=== PATIENT | female | born 1990 | race Caucasian/White ===

== ENCOUNTER 2019-11-15 15:34 | Emergency (ER) | payer SELFPAY ==
[~2019-11-15] VITALS: Ht 160 cm; Wt 109.0 kg
--- NOTE | 2019-11-15 16:38 | PHYS DOC ---
Past History Past Medical History: Asthma Past Surgical History: , Tubal ligation, Other Additional Past Surgical Histo: ORAL SURGERY(TOOTH EXTRACTION) YESTERDAY Additional Smoking Information: DAY/PACK Alcohol Use: None Adult General Chief Complaint Chief Complaint: DENTAL PROBLEM HPI HPI 28-year-old female presents with right lower dental pain. The patient had oral surgery yesterday. She had a molar removed. It was a difficult procedure the took an hour. She was discharged with mouthwash and oxycodone 5. She was given 5 of these tablets. She has taken all of them in the last 24 hours. Patient still continues to have significant pain without the medication. She is worried about infection. She has swelling of this part of her mouth on her cheek is puffy. She has had dental infections in the past that were similarly painful. She is allergic to penicillins. She has used clindamycin in the past with success. Review of Systems Review of Systems Constitutional: Denies fever or chills [] Eyes: Denies change in visual acuity, redness, or eye pain [] HENT: Denies nasal congestion or sore throat [] Respiratory: Denies cough or shortness of breath [] Cardiovascular: No additional information not addressed in HPI [] GI: Denies abdominal pain, nausea, vomiting, bloody stools or diarrhea [] : Denies dysuria or hematuria [] Musculoskeletal: Denies back pain or joint pain [] Integument: Denies rash or skin lesions [] Neurologic: Denies headache, focal weakness or sensory changes [] Endocrine: Denies polyuria or polydipsia [] All other systems were reviewed and found to be within normal limits, except as documented in this note. Current Medications Current Medications Current Medications Medications (Trade) Dose Ordered Sig/Sondra Start Time Stop Time Status Last Admin Dose Admin Oxycodone/ Acetaminophen (Percocet 5/325) 1 tab 1X ONCE 11/15/19 16:45 11/15/19 16:46 UNV Allergies Allergies Allergies Coded Allergies Type Severity Reaction Last Updated Verified Penicillins Allergy Unknown 11/15/19 Yes codeine Allergy Unknown 11/15/19 Yes morphine Allergy Unknown 11/15/19 Yes sulfamethoxazole Allergy Unknown 11/15/19 Yes trimethoprim Allergy Unknown 11/15/19 Yes Physical Exam Physical Exam Constitutional: Well developed, well nourished, no acute distress, non-toxic appearance. [] HENT: Normocephalic, atraumatic, bilateral external ears normal, oropharynx moist, no oral exudates, nose normal. Tooth #31 is missing, surrounding erythema and tenderness.[] Eyes: PERRLA, EOMI, conjunctiva normal, no discharge. [] Neck: Normal range of motion, no tenderness, supple, no stridor. [] Cardiovascular:Heart rate regular rhythm, no murmur [] Lungs & Thorax: Bilateral breath sounds clear to auscultation [] Abdomen: Bowel sounds normal, soft, no tenderness, no masses, no pulsatile masses. [] Skin: Warm, dry, no erythema, no rash. [] Back: No tenderness, no CVA tenderness. [] Extremities: No tenderness, no cyanosis, no clubbing, ROM intact, no edema. [] Neurologic: Alert and oriented X 3, normal motor function, normal sensory function, no focal deficits noted. [] Psychologic: Affect normal, judgement normal, mood normal. [] Current Patient Data Vital Signs Vital Signs Date Time Temp Pulse Resp B/P (MAP) Pulse Ox O2 Delivery O2 Flow Rate FiO2 11/15/19 15:40 98.8 97 20 147/87 (107) 96 Room Air EKG EKG [] Radiology/Procedures Radiology/Procedures [] Course & Med Decision Making Course & Med Decision Making Pertinent Labs and Imaging studies reviewed. (See chart for details) The patient appears to have an infected tooth. I will place her on clindamycin and give her an additional 10 Percocet 5/325. She is stable for discharge at this time. [] Dragon Disclaimer Dragon Disclaimer This electronic medical record was generated, in whole or in part, using a voice recognition dictation system. Departure Departure: Impression: Primary Impression: Dental infection Disposition: HOME, SELF-CARE Condition: STABLE Referrals: PCP,NO (PCP) Scripts Clindamycin Hcl (CLINDAMYCIN HCL) 300 Mg Capsule 1 CAP PO TID for dental infection, #21 CAP Prov: LUCAS MOSS DO 11/15/19 Oxycodone HCl/Acetaminophen (Percocet 5-325 mg Tablet) 1 Each Tablet 1 TAB PO PRN QID PRN for PAIN MDD 4 Tablet(s), #14 TAB 0 Refills Prov: LUCAS MOSS DO 11/15/19 LUCAS MOSS DO Nov 15, 2019 16:38
[2019-11-15] MEDS ORDERED: oxyCODONE/APAP 5/325 1 TAB TABLET PO ONE (16:45)
[2019-11-15] MEDS ORDERED: OXYC-325 PO (16:57)
[2019-11-15] MEDS ORDERED: CLIN300C8 PO (16:57)
[2019-11-15 17:00] VITALS: BP 126/87
== END 2019-11-15 17:02 | disposition home or self-care (01) ==
LOC: ER 15:34
DX: K04.7 Periapical abscess without sinus (principal); J45.909 Unspecified asthma, uncomplicated; F17.200 Nicotine dependence, unspecified, uncomplicated; Z88.0 Allergy status to penicillin; Z88.5 Allergy status to narcotic agent; Z88.2 Allergy status to sulfonamides; Z88.1 Allergy status to other antibiotic agents
CPT/HCPCS: 99283

== ENCOUNTER 2019-12-25 09:57 | Emergency (ER) | payer SELFPAY ==
[~2019-12-25] VITALS: Ht 160 cm; Wt 106.6 kg
[~2019-12-25 09:57] MED LIST: CLIN300C8 PO; OXYC-325 PO
[2019-12-25 10:06] VITALS: BP 153/108
--- NOTE | 2019-12-25 10:14 | PHYS DOC ---
Past History Past Medical History: Asthma Past Surgical History: , Tubal ligation, Other Additional Past Surgical Histo: ORAL SURGERY(TOOTH EXTRACTION) YESTERDAY Alcohol Use: None Adult General Chief Complaint Chief Complaint: DENTAL PROBLEM HPI HPI Patient is a 29-year-old female who presents to the ER complaining of dental pain. She states she is scheduled to undergo 6 extractions on Sunday but as of 3 days ago has been having increasing pain and presents today for pain control. The patient states that she has no primary care physician. She states she is having her teeth extracted at a dental clinic by [facility] in [place]. She states that she recently moved from [place] to [place] 2 weeks ago, however the patient was seen in this emergency department on November 15 and prescribed pain medication for reported previous dental extraction and worsening pain and she was also given clindamycin. When I asked the patient about that she states that she was homeless at that time. She states she has had tried ibuprofen and Tylenol without relief. She lists multiple medication allergies including codeine, morphine, naproxen, tramadol but states that she can take oxycodone and hydrocodone. Review of Systems Review of Systems All other systems negative Allergies Allergies Allergies Coded Allergies Type Severity Reaction Last Updated Verified Penicillins Allergy Unknown 11/15/19 Yes codeine Allergy Unknown 11/15/19 Yes morphine Allergy Unknown 11/15/19 Yes naproxen Allergy Unknown 12/25/19 Yes prednisolone Allergy Unknown 12/25/19 Yes sulfamethoxazole Allergy Unknown 11/15/19 Yes tramadol Allergy Unknown 12/25/19 Yes trimethoprim Allergy Unknown 11/15/19 Yes Physical Exam Physical Exam Constitutional: Well developed, well nourished, no acute distress, non-toxic appearance. [] HENT: Normocephalic, atraumatic, bilateral external ears normal, oropharynx moist, no oral exudates, nose normal. Patient has evidence of extensive dental decay on both right and left upper molars and left lower molar. I see no evidence of infection, swelling, erythema. Eyes: PERRLA, EOMI, conjunctiva normal, no discharge. [] Neck: Normal range of motion, no tenderness, supple, no stridor. [] Cardiovascular:Heart rate regular rhythm, no murmur [] Lungs & Thorax: Bilateral breath sounds clear to auscultation [][] Skin: Warm, dry, no erythema, no rash. [] Extremities: No tenderness, no cyanosis, no clubbing, ROM intact, no edema. [] Neurologic: Alert and oriented X 3, normal motor function, normal sensory function, no focal deficits noted. [] Current Patient Data Vital Signs Vital Signs Date Time Temp Pulse Resp B/P (MAP) Pulse Ox O2 Delivery O2 Flow Rate FiO2 12/25/19 10:06 98.0 102 16 153/108 (123) 98 Room Air EKG EKG [] Radiology/Procedures Radiology/Procedures [] Course & Med Decision Making Course & Med Decision Making Pertinent Labs and Imaging studies reviewed. (See chart for details) Patient presenting today requesting pain control specifically hydrocodone or oxycodone. She listed multiple drug allergy medications. She has no primary care physician. She has been seen in the ER as of November 15 and received narcotic pain medication for the same problem. At this time I informed her I was not comfortable providing additional narcotic medications and they would need to come from her dentist or her primary care physician. Patient was offered an injection of Toradol which she declined. She is stable for discharge and there is no emergent medical condition that is identified. Dragon Disclaimer Dragon Disclaimer This electronic medical record was generated, in whole or in part, using a voice recognition dictation system. Departure Departure: Impression: Primary Impression: Pain, dental Disposition: HOME, SELF-CARE Condition: STABLE Referrals: PCP,NO (PCP) Additional Instructions: Please establish care with a primary care physician for ongoing pain management or refer to your dentist. AJ NIEVES DO Dec 25, 2019 10:14
== END 2019-12-25 10:25 | disposition home or self-care (01) ==
LOC: ER 09:57
DX: K02.9 Dental caries, unspecified (principal); K08.89 Other specified disorders of teeth and supporting structures; Z59.0 Homelessness; J45.909 Unspecified asthma, uncomplicated; Z98.818 Other dental procedure status; Z88.0 Allergy status to penicillin; Z88.5 Allergy status to narcotic agent; Z88.8 Allergy status to other drugs, medicaments and biological substances; Z88.2 Allergy status to sulfonamides; Z88.1 Allergy status to other antibiotic agents
CPT/HCPCS: 99281

== ENCOUNTER 2020-03-25 20:37 | Emergency (ER) | payer SELFPAY ==
[~2020-03-25] VITALS: Ht 160 cm; Wt 112.8 kg
[2020-03-25] MEDS ORDERED: ACET500T68 PO (21:08)
[2020-03-25] MEDS ORDERED: IBUP800T19 PO (21:08)
[2020-03-25] MEDS ORDERED: ALBU2.5V8 INH (21:08)
--- NOTE | 2020-03-25 22:00 | PHYS DOC ---
Past History Past Medical History: Asthma Past Surgical History: , Tubal ligation, Other Additional Past Surgical Histo: ORAL SURGERY(TOOTH EXTRACTION) YESTERDAY Alcohol Use: None General Adult EDM: Chief Complaint: SKIN RASH/ABSCESS HPI: HPI: Patient is a 29 year old femal who presents for evaluation of an abscess to her right groin area. It is on the outer aspect near the junction with her thigh. Patient does shave her genital area and this appears to be an infected hair follicle. Patient's partner did try to drain it several times at home. It has been progressing over the past 4 days. Patient states she normally takes clindamycin when she has similar infections in the past. Review of Systems: Review of Systems: Constitutional: Denies fever or chills Eyes: Denies change in visual acuity HENT: Denies nasal congestion or sore throat Respiratory: Denies cough or shortness of breath Cardiovascular: Denies chest pain or edema GI: Denies abdominal pain, nausea, vomiting, bloody stools or diarrhea : Denies dysuria Musculoskeletal: Denies back pain or joint pain Integument: Denies rash, small right side groin abscess Neurologic: Denies headache, focal weakness or sensory changes Endocrine: Denies polyuria or polydipsia Lymphatic: Denies swollen glands Psychiatric: Denies depression or anxiety Heart Score: Risk Factors: Risk Factors: DM, Current or recent (<one month) smoker, HTN, HLP, family history of CAD, obesity. Risk Scores: Score 0 - 3: 2.5% MACE over next 6 weeks - Discharge Home Score 4 - 6: 20.3% MACE over next 6 weeks - Admit for Clinical Observation Score 7 - 10: 72.7% MACE over next 6 weeks - Early Invasive Strategies Allergies: Allergies: Allergies Coded Allergies Type Severity Reaction Last Updated Verified dextromethorphan Allergy Severe 03/25/20 Yes prednisone Allergy Severe 03/25/20 Yes ketorolac Allergy Intermediate 03/25/20 Yes Penicillins Allergy Unknown 11/15/19 Yes amoxicillin Allergy Unknown 03/25/20 Yes codeine Allergy Unknown 11/15/19 Yes morphine Allergy Unknown 11/15/19 Yes naproxen Allergy Unknown 12/25/19 Yes prednisolone Allergy Unknown 12/25/19 Yes sulfamethoxazole Allergy Unknown 11/15/19 Yes tramadol Allergy Unknown 12/25/19 Yes trimethoprim Allergy Unknown 11/15/19 Yes Physical Exam: PE: Constitutional: Well developed, well nourished, no acute distress, non-toxic appearance. [] HENT: Normocephalic, atraumatic, bilateral external ears normal, oropharynx moist, nose normal. [] Eyes: PERRL, EOMI, conjunctiva normal, no discharge. [] Neck: Normal range of motion, no tenderness, supple, no stridor. [] Cardiovascular:Heart rate regular rhythm, no murmur [] Lungs & Thorax: Bilateral breath sounds clear to auscultation [] Abdomen: Bowel sounds normal, soft, no tenderness, no masses, no pulsatile masses. [] Skin: Warm, dry, no erythema, no rash. Small less than 1 cm abscess outer aspect of groin past labia majora, it does not involve the inner groin areas or vagina or rectum [] Back: No tenderness, no CVA tenderness. [] Extremities: No tenderness, no cyanosis, no clubbing, ROM intact, no edema. [] Neurologic: Alert and oriented X 3, normal motor function, normal sensory function, no focal deficits noted. [] Psychologic: Affect normal, judgement normal, mood normal. [] EKG: EKG: [] Radiology/Procedures: Radiology/Procedures: [] Course & Med Decision Making: Course & Med Decision Making Pertinent Labs and Imaging studies reviewed. (See chart for details) [] Dragon Disclaimer: Dragon Disclaimer: This electronic medical record was generated, in whole or in part, using a voice recognition dictation system. Wound was examined with nursing fuel oil truck driver present. There is a small less than 1 cm abscess present. Although it is tender to palpation it is not fluctuant does not require incision and drainage at this time. Prescription for clindamycin given Departure Departure: Impression: Primary Impression: Groin abscess Disposition: HOME/RESIDENCE PRIOR TO ADM Condition: STABLE Referrals: PCP,NO (PCP) Patient Instructions: Abscess, Care After Additional Instructions: Use hot compresses, start antibiotic and finish as directed, apply triple antibiotic to wound daily. Return if worsen. Do not try to squeeze wound at home Scripts Clindamycin Hcl (CLINDAMYCIN HCL) 150 Mg Capsule 1 CAP PO QID for skin abscess, #28 CAP Prov: OSCAR ARIAS DO 03/25/20 Justification of Admission: Justification of Admission: Justification of Admission Dx: N/A OSCAR ARIAS DO Mar 25, 2020 22:00
[2020-03-25] MEDS ORDERED: CLIN150C14 PO (22:10)
[2020-03-25] MEDS ORDERED: HYDROcodone/APAP 5/325MG 1 TAB TABLET PO ONE (22:15)
[2020-03-25 22:20] VITALS: BP 118/73
[2020-03-26] MEDS ORDERED: HYDR-3165 PO (14:31)
== END 2020-03-25 22:30 | disposition home or self-care (01) ==
LOC: ER 20:37
DX: L02.214 Cutaneous abscess of groin (principal); J45.909 Unspecified asthma, uncomplicated; Z88.5 Allergy status to narcotic agent; Z88.1 Allergy status to other antibiotic agents; Z88.2 Allergy status to sulfonamides; Z88.6 Allergy status to analgesic agent; Z88.0 Allergy status to penicillin; Z88.8 Allergy status to other drugs, medicaments and biological substances
CPT/HCPCS: 99283

== ENCOUNTER 2020-03-26 13:41 | Emergency (ER) | payer SELFPAY ==
[~2020-03-26] VITALS: Ht 160 cm; Wt 112.8 kg
[~2020-03-26 13:41] MED LIST changes: +ACET500T68 PO; +ALBU2.5V8 INH; +CLIN150C14 PO; +IBUP800T19 PO
[2020-03-26 14:08] VITALS: BP 118/73
[2020-03-26] MEDS ORDERED: HYDR-3165 PO (14:31)
--- NOTE | 2020-03-26 14:31 | PHYS DOC ---
Past History Past Medical History: Asthma Past Surgical History: , Tubal ligation, Other Additional Past Surgical Histo: ORAL SURGERY(TOOTH EXTRACTION) Smoking: Cigarettes Alcohol Use: None Drug Use: None General Adult EDM: Chief Complaint: ABSCESS HPI: HPI: 29-year-old female presents with report of small abscess to the pubic region 5 days and for which patient was seen yesterday. Reports she was prescribed antibiotics that she has started taking. Patient the abscess has opened and started to drain. Patient reports concerned that it is required. Denies fever or chills. Reports history of recently shaving this area. Review of Systems: Review of Systems: Constitutional: Denies fever or chills Integument: Reports abscess to pubic area Neurologic: Denies headache, focal weakness or sensory changes Complete systems were reviewed and found to be within normal limits, except as documented in this note. Allergies: Allergies: Allergies Coded Allergies Type Severity Reaction Last Updated Verified dextromethorphan Allergy Severe 03/25/20 Yes prednisone Allergy Severe 03/25/20 Yes ketorolac Allergy Intermediate 03/25/20 Yes Penicillins Allergy Unknown 11/15/19 Yes amoxicillin Allergy Unknown 03/25/20 Yes codeine Allergy Unknown 11/15/19 Yes morphine Allergy Unknown 11/15/19 Yes naproxen Allergy Unknown 12/25/19 Yes prednisolone Allergy Unknown 12/25/19 Yes sulfamethoxazole Allergy Unknown 11/15/19 Yes tramadol Allergy Unknown 12/25/19 Yes trimethoprim Allergy Unknown 11/15/19 Yes Physical Exam: PE: Constitutional: Well developed, well nourished, no acute distress, non-toxic appearance HENT: Normocephalic, atraumatic Eyes: Conjunctiva normal, no discharge Neck: Normal range of motion, supple Lungs & Thorax: No respiratory distress, equal chest rise and fall Skin: Warm, dry, small 0.5cm open lesion to right mons pubis without surrounding erythema, indurated and without fluctuance Neurologic: Alert and oriented X 3, no focal deficits noted Psychologic: Affect normal, judgement normal EKG: EKG: [] Radiology/Procedures: Radiology/Procedures: [] Course & Med Decision Making: Course & Med Decision Making Patient presents for re-evaluation of abscess to mons pubis for which patient was initially evaluated yesterday. Reports abscess opened and has been draining. Patient previously started on antibiotics. No surrounding erythema. Likely secondary to shaving. Patient stable for discharge with outpatient follow-up with PCP. Discussed findings and plan with patient, who acknowledges understanding and agreement. Michael Disclaimer: Michael Disclaimer: This electronic medical record was generated, in whole or in part, using a voice recognition dictation system. Departure Departure: Impression: Primary Impression: Encounter for wound re-check Disposition: HOME/RESIDENCE PRIOR TO ADM Condition: STABLE Referrals: PCP,NO (PCP) Patient Instructions: Wound Care, [id number] Additional Instructions: Do not soak your wound. You may shower. Clean wound daily with soap and water. Change dressing 2 times daily. Use over the counter antibiotic ointment with each dressing change. Please continue previously prescribed antibiotics until completion. Scripts Hydrocodone Bit/Acetaminophen (NORCO 5-325 TABLET) 1 Each Tablet 0.5-1 TAB PO Q6HRS PRN for PAIN, #6 TAB Prov: BRIDGETTE JOYCE DO 03/26/20 Justification of Admission: Justification of Admission: Justification of Admission Dx: N/A BRIDGETTE JOYCE DO Mar 26, 2020 14:31
== END 2020-03-26 14:33 | disposition home or self-care (01) ==
LOC: ER 13:41
DX: Z48.01 Encounter for change or removal of surgical wound dressing (principal); L02.214 Cutaneous abscess of groin; J45.909 Unspecified asthma, uncomplicated; F17.210 Nicotine dependence, cigarettes, uncomplicated; Z98.890 Other specified postprocedural states; Z98.51 Tubal ligation status; Z88.8 Allergy status to other drugs, medicaments and biological substances; Z88.1 Allergy status to other antibiotic agents; Z88.5 Allergy status to narcotic agent; Z88.2 Allergy status to sulfonamides; Z88.0 Allergy status to penicillin
CPT/HCPCS: 99283

== ENCOUNTER 2020-06-28 19:37 | Emergency (ER) | payer SELFPAY ==
[~2020-06-28] VITALS: Ht 160 cm; Wt 113.0 kg
[~2020-06-28 19:37] MED LIST changes: +HYDR-3165 PO
[2020-06-28] MEDS ORDERED: SULI200T2 PO (19:56)
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
[2020-06-28] MEDS ORDERED: HYDROcodone/APAP 5/325MG 1 TAB TABLET PO ONE (20:00)
[2020-06-28 20:26] VITALS: BP 118/67
== END 2020-06-28 20:15 | disposition home or self-care (01) ==
LOC: ER 19:37
DX: S60.032A Contusion of left middle finger without damage to nail, initial encounter (principal); J45.909 Unspecified asthma, uncomplicated; F17.210 Nicotine dependence, cigarettes, uncomplicated; Z88.8 Allergy status to other drugs, medicaments and biological substances; Z88.0 Allergy status to penicillin; Z88.1 Allergy status to other antibiotic agents; Z88.5 Allergy status to narcotic agent; Z88.2 Allergy status to sulfonamides; X50.9XXA Other and unspecified overexertion or strenuous movements or postures, initial encounter; Y93.89 Activity, other specified; Y92.89 Other specified places as the place of occurrence of the external cause; Y99.8 Other external cause status
CPT/HCPCS: 29130; 99283

== ENCOUNTER 2020-07-02 20:12 | Emergency (ER) | payer SELFPAY ==
[~2020-07-02] VITALS: Ht 160 cm; Wt 114.3 kg
[~2020-07-02 20:12] MED LIST changes: +SULI200T2 PO
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
--- NOTE | 2020-07-02 20:59 | RAD ---
EXAM: PA, oblique and lateral views of the left hand DATE: 07/02/2020 8:17 PM INDICATION: Reason: hx. lt finger hand re-injury / Spl. Instructions: / History: COMPARISON: No Prior FINDINGS/ IMPRESSION: No evidence of acute fracture or dislocation. Joint spaces are preserved without significant degenerative/proliferative change. No significant soft tissue swelling. Electronically signed by: Michael Fernandez MD (07/02/2020 8:56 PM) ALICIA
[2020-07-02 21:15] VITALS: BP 146/96
[2020-07-02] MEDS ORDERED: HYDROcodon/IBUPROFEN 7.5/200MG 1 TAB TABLET PO ONE (21:30)
== END 2020-07-02 21:20 | disposition home or self-care (01) ==
LOC: ER 20:12
DX: S63.613D Unspecified sprain of left middle finger, subsequent encounter (principal); F41.9 Anxiety disorder, unspecified; G43.909 Migraine, unspecified, not intractable, without status migrainosus; F17.210 Nicotine dependence, cigarettes, uncomplicated; Z88.8 Allergy status to other drugs, medicaments and biological substances; Z88.2 Allergy status to sulfonamides; Z88.5 Allergy status to narcotic agent; Z88.1 Allergy status to other antibiotic agents; X50.9XXD Other and unspecified overexertion or strenuous movements or postures, subsequent encounter
CPT/HCPCS: 29130; 73130; 99283

== ENCOUNTER 2020-07-27 23:33 | Emergency (ER) | payer SELFPAY ==
[~2020-07-27] VITALS: Ht 160 cm; Wt 114.3 kg
== END 2020-07-27 23:54 | disposition left against medical advice (07) ==
LOC: ER 23:33
DX: R10.9 Unspecified abdominal pain (principal); Z53.21 Procedure and treatment not carried out due to patient leaving prior to being seen by health care provider

== ENCOUNTER 2020-08-09 00:55 | Emergency (ER) | payer SELFPAY ==
[~2020-08-09] VITALS: Ht 160 cm; Wt 114.3 kg
--- NOTE | 2020-08-09 01:19 | PHYS DOC ---
Past History Past Medical History: No Pertinent History, Anxiety, Migraines Past Surgical History: , Tubal ligation, Other Additional Past Surgical Histo: ORAL SURGERY(TOOTH EXTRACTION) Smoking: Cigarettes Alcohol Use: Rarely Drug Use: None General Adult EDM: Chief Complaint: ABDOMINAL PAIN HPI: HPI: 29-year-old female presents with right lower quadrant abdominal pain. It is more right lateral than deep right lower. It is intermittent cramping sensation. She was diagnosed by CT 8 days ago with colitis. No other normalities were found. She was placed on Cipro and Flagyl. She finished those antibiotics 3 days ago. She still feels about the same and is concerned. She has been able to fall asleep at home. She also has left upper dental pain. She has had a cracked tooth for some time and is bothering her more than previously. It is an electrical type feeling that is intermittent. She denies fever or chills. Review of Systems: Review of Systems: Constitutional: Denies fever or chills Eyes: Denies change in visual acuity HENT: Dental pain Respiratory: Denies cough or shortness of breath Cardiovascular: Denies chest pain or edema GI: Right lateral abdominal pain. Denies nausea, vomiting, bloody stools or diarrhea : Denies dysuria Musculoskeletal: Denies back pain or joint pain Integument: Denies rash Neurologic: Denies headache, focal weakness or sensory changes Endocrine: Denies polyuria or polydipsia Lymphatic: Denies swollen glands Psychiatric: Denies depression or anxiety Current Medications: Current Meds: Current Medications Medications (Trade) Dose Ordered Sig/Sondra Start Time Stop Time Status Last Admin Dose Admin Sodium Chloride 1,000 ml @ 1,000 mls/hr 1X ONCE 08/09/20 01:30 08/09/20 02:29 Allergies: Allergies: Allergies Coded Allergies Type Severity Reaction Last Updated Verified dextromethorphan Allergy Severe 03/25/20 Yes prednisone Allergy Severe 03/25/20 Yes ketorolac Allergy Intermediate 03/25/20 Yes Penicillins Allergy Unknown 11/15/19 Yes amoxicillin Allergy Unknown 03/25/20 Yes codeine Allergy Unknown 11/15/19 Yes morphine Allergy Unknown 11/15/19 Yes naproxen Allergy Unknown 12/25/19 Yes prednisolone Allergy Unknown 12/25/19 Yes sulfamethoxazole Allergy Unknown 11/15/19 Yes tramadol Allergy Unknown 12/25/19 Yes trimethoprim Allergy Unknown 11/15/19 Yes Physical Exam: PE: Constitutional: Well developed, well nourished, morbidly obese, no acute distress, non-toxic appearance. [] HENT: Normocephalic, atraumatic, bilateral external ears normal, oropharynx moist, no oral exudates, nose normal. [] Eyes: PERRLA, EOMI, conjunctiva normal, no discharge. [] Neck: Normal range of motion, no tenderness, supple, no stridor. [] Cardiovascular: Heart rate regular rhythm, no murmur [] Lungs & Thorax: Bilateral breath sounds clear to auscultation [] Abdomen: Bowel sounds normal, soft, mild right lateral tenderness, no masses, no pulsatile masses. [] Skin: Warm, dry, no erythema, no rash. [] Back: No tenderness, no CVA tenderness. [] Extremities: No tenderness, no cyanosis, no clubbing, ROM intact, no edema. [] Neurologic: Alert and oriented X 3, normal motor function, normal sensory function, no focal deficits noted. [] Psychologic: Affect normal, judgement normal, mood normal. [] EKG: EKG: [] Radiology/Procedures: Radiology/Procedures: [] Impressions: INDICATION: Reason: abdominal pain / Spl. Instructions: / History: COMPARISON: None. IMPRESSION: Abdomen: 2 views obtained. Hepatic shadow appears prominent in size. Air scattered throughout the large and small bowel in a nonspecific but nonobstructive pattern. There is a couple calcifications in the right hemipelvis measuring up to 2 mm. Could be secondary to phleboliths or bowel content but would correlate with symptoms to ensure that this is not secondary to a small ureter stone. Electronically signed by: Tesfaye Tian MD (08/09/2020 2:07 AM) [id number] DICTATED AND SIGNED BY: TESFAYE TIAN MD DATE: 08/09/20 0207 CC: LUCAS MOSS DO; PCP,NO ~ Heart Score: Risk Factors: Risk Factors: DM, Current or recent (<one month) smoker, HTN, HLP, family history of CAD, obesity. Risk Scores: Score 0 - 3: 2.5% MACE over next 6 weeks - Discharge Home Score 4 - 6: 20.3% MACE over next 6 weeks - Admit for Clinical Observation Score 7 - 10: 72.7% MACE over next 6 weeks - Early Invasive Strategies Course & Med Decision Making: Course & Med Decision Making Pertinent Labs and Imaging studies reviewed. (See chart for details) The patient's KUB shows diffuse stool throughout the colon. I suspect that she is a bit constipated and that is leading to her discomfort. Her labs are unremarkable. I do not see anything that would warrant admission or antibiotics. At this point her colitis is likely either treated or viral. She is stable for discharge at this time. [] Dragon Disclaimer: Dragon Disclaimer: This electronic medical record was generated, in whole or in part, using a voice recognition dictation system. Departure Departure: Impression: Primary Impression: Abdominal pain Qualified Codes: R10.31 - Right lower quadrant pain Additional Impression: Constipation Qualified Codes: K59.00 - Constipation, unspecified Disposition: 01 DC HOME SELF CARE/HOMELESS Condition: STABLE Referrals: PCP,NO (PCP) Patient Instructions: Constipation, Adult, [id number] Additional Instructions: You should go to the local pharmacy and last picker a bottle of magnesium citrate. You should drink the entire bottle and have several bowel movements. This will likely help you to to feel better. LUCAS MOSS DO Aug 09, 2020 01:19
[2020-08-09] MEDS ORDERED: IV NORMAL SALINE 1,000ML 1,000 ML IV ONE (01:30)
[2020-08-09 01:57] LABS: BASO # 0.1 x10^3/uL (0.0-0.2); BASO % 1 % (0-3); EOS # 0.2 x10^3/uL (0.0-0.7); EOS % 2 % (0-3); HEMATOCRIT 40.8 % (36.0-47.0); HEMOGLOBIN 13.8 g/dL (12.0-15.5); LYMPH # 3.1 x10^3/uL (1.0-4.8); LYMPH % 40 % (24-48); MEAN CORPUSCULAR HEMOGLOBIN 30 pg (25-35); MEAN CORPUSCULAR HGB CONC 34 g/dL (31-37); MEAN CORPUSCULAR VOLUME 88 fL (79-100); MONO # 0.4 x10^3/uL (0.0-1.1); MONO % 5 % (0-9); NEUT % 52 % (31-73); PLATELET COUNT 306 x10^3/uL (140-400); RED BLOOD COUNT 4.64 x10^6/uL (3.50-5.40); RED CELL DISTRIBUTION WIDTH 14.6 % (11.5-14.5); WHITE BLOOD COUNT 7.7 x10^3/uL (4.0-11.0)
[2020-08-09 02:03] LABS: BACTERIA,URINE FEW /HPF (0-FEW); BILIRUBIN,URINE NEG (NEG); CLARITY,URINE CLEAR; COLOR,URINE YELLOW; GLUCOSE,URINE NEG (NEG); NITRITE,URINE NEG (NEG); RBC,URINE OCC /HPF (0-2); SQUAMOUS EPITHELIAL CELL,UR MOD /LPF; UROBILINOGEN,URINE 0.2 mg/dL (0.2 mg/dL); WBC,URINE OCC /HPF (0-4)
[2020-08-09 02:05] LABS: CALCIUM 8.8 mg/dL (8.5-10.1); CREATININE 1.1 mg/dL (0.6-1.0); GFR 59.6; POTASSIUM 3.6 mmol/L (3.5-5.1)
[2020-08-09 02:07] LABS: BARBITURATES NEG (NEG); BENZODIAZEPINES NEG (NEG); CANNABINOIDS NEG (NEG); COCAINE NEG (NEG); METHADONE NEG (NEG); OPIATES NEG (NEG); PHENCYCLIDINE NEG (NEG)
[2020-08-09 02:08] LABS: AMPHETAMINE/METHAMPHETAMINE NEG (NEG)
--- NOTE | 2020-08-09 02:10 | RAD ---
INDICATION: Reason: abdominal pain / Spl. Instructions: / History: COMPARISON: None. IMPRESSION: Abdomen: 2 views obtained. Hepatic shadow appears prominent in size. Air scattered throughout the large and small bowel in a nonspecific but nonobstructive pattern. There is a couple calcifications in the right hemipelvis measuring up to 2 mm. Could be secondary to phleboliths or bowel content but would correlate with symptoms to ensure that this is not secondary to a small ureter stone. Electronically signed by: Jovani Tian MD (08/09/2020 2:07 AM) [id number]
[2020-08-09 02:11] LABS: ALBUMIN 3.4 g/dL (3.4-5.0); ALBUMIN/GLOBULIN RATIO 0.8 (1.0-1.7); TOTAL BILIRUBIN 0.3 mg/dL (0.2-1.0); TOTAL PROTEIN 7.6 g/dL (6.4-8.2)
[2020-08-09 02:21] VITALS: BP 115/76
[2020-08-09] MEDS ORDERED: CLIN300C8 PO (02:21)
[2020-08-09] MEDS ORDERED: HYDROcodone/APAP 7.5/325MG 1 TAB TABLET PO ONE (02:30)
[2020-08-09] MEDS ORDERED: HYDROcodone/APAP 5/325MG 1 TAB TABLET ONE (02:31)
[2020-08-09] MEDS ORDERED: HYDROmorphone PF 1 MG/ML DISP.SYRIN IVP ONE (03:00)
[2020-08-09] MEDS ORDERED: CLINDAMYCIN HCL 150 MG CAPSULE PO ONE (03:00)
== END 2020-08-09 02:45 | disposition home or self-care (01) ==
LOC: ER 00:55
DX: K59.00 Constipation, unspecified (principal); R10.31 Right lower quadrant pain; K08.89 Other specified disorders of teeth and supporting structures; G43.909 Migraine, unspecified, not intractable, without status migrainosus; F41.9 Anxiety disorder, unspecified; F17.210 Nicotine dependence, cigarettes, uncomplicated; Z98.890 Other specified postprocedural states; Z98.51 Tubal ligation status; Z88.8 Allergy status to other drugs, medicaments and biological substances; Z88.0 Allergy status to penicillin; Z88.1 Allergy status to other antibiotic agents; Z88.5 Allergy status to narcotic agent; Z88.2 Allergy status to sulfonamides; Z88.6 Allergy status to analgesic agent
CPT/HCPCS: 36415; 74018; 80053; 80307; 81001; 81025; 85025; 96360; 99284; J7030

== ENCOUNTER 2020-08-15 03:04 | Emergency (ER) | payer SELFPAY ==
[~2020-08-15] VITALS: Ht 160 cm; Wt 114.3 kg
[2020-08-15 03:21] VITALS: BP 156/95
--- NOTE | 2020-08-15 03:21 | PHYS DOC ---
Past History Past Medical History: Anxiety, Asthma, Migraines, Other Additional Past Medical Histor: PTSD Past Surgical History: , Tubal ligation, Other Additional Past Surgical Histo: ORAL SURGERY(TOOTH EXTRACTION) Smoking: Cigarettes Alcohol Use: None Drug Use: None General Adult EDM: Chief Complaint: DENTAL PROBLEM HPI: HPI: "... I got a dental apt. in Sunday.. but I still hurting.. "..." I was here on the .. for dental pain..(. in area of tooth 12) Patient is a 29 year old female who presents with above hx and complaints severe dental pain in the area of tooth #12. Patient has a scheduled appointment on Sunday at [facility] for extraction of fractured infected tooth. Patient currently on clindamycin for tooth and facial abscess . Patient has no trismus. Does have some adenopathy at angle jaw left. No history immunosuppression. No recent travel outside the [place] area. No specific ill contacts. Was seen here earlier on 08/09 for abdomen pain as well as dental pain. Review of Systems: Review of Systems: Constitutional: Denies fever or chills Eyes: Denies change in visual acuity HENT: Complains of dental abscess and pain area of tooth 12 Respiratory: Denies cough or shortness of breath Cardiovascular: Denies chest pain or edema GI: Denies abdominal pain, nausea, vomiting, bloody stools or diarrhea : Denies dysuria Musculoskeletal: Denies back pain or joint pain Integument: Denies rash Neurologic: Denies headache, focal weakness or sensory changes Endocrine: Denies polyuria or polydipsia Lymphatic: Denies swollen glands Psychiatric: Denies depression or anxiety Family History: Family History: Noncontributory to presentation Current Medications: Current Meds: See nursing for home meds Allergies: Allergies: Allergies Coded Allergies Type Severity Reaction Last Updated Verified dextromethorphan Allergy Severe 03/25/20 Yes prednisone Allergy Severe 03/25/20 Yes ketorolac Allergy Intermediate 03/25/20 Yes Penicillins Allergy Unknown 11/15/19 Yes amoxicillin Allergy Unknown 03/25/20 Yes codeine Allergy Unknown 11/15/19 Yes morphine Allergy Unknown 11/15/19 Yes naproxen Allergy Unknown 12/25/19 Yes prednisolone Allergy Unknown 12/25/19 Yes sulfamethoxazole Allergy Unknown 11/15/19 Yes tramadol Allergy Unknown 12/25/19 Yes trimethoprim Allergy Unknown 11/15/19 Yes Physical Exam: PE: Constitutional: in acute distress, non-toxic appearance. [] HENT: Normocephalic, atraumatic, bilateral external ears normal, oropharynx moist, no oral exudates, nose normal. Multiple areas of decay obvious swelling and fractured tooth in area of 12. Has inflamed gum. No pointing abscess appreciated. No trismus Eyes: PERRLA, EOMI, conjunctiva normal, no discharge. [] Neck: Normal range of motion, no tenderness, supple, no stridor. More than 17 inches circumference Cardiovascular:Heart rate regular rhythm, no murmur [] Lungs & Thorax: Bilateral breath sounds equal apex with some basilar crackles on auscultation [] Abdomen: Bowel sounds normal, soft, no tenderness, no masses, no pulsatile masses. Morbidly obese. Abdomen surgical scar. Skin: Warm, dry, no erythema, no rash. [] Back: No tenderness, no CVA tenderness. [] Extremities: No tenderness, no cyanosis, no clubbing, ROM intact, bilateral ankle edema. [] Neurologic: Alert and oriented X 3, moves all extremities on request, has distal sensory,, no focal deficits noted. [] Psychologic: Affect anxious, judgement normal, mood normal. [] EKG: EKG: [] Radiology/Procedures: Radiology/Procedures: [] Heart Score: Risk Factors: Risk Factors: DM, Current or recent (<one month) smoker, HTN, HLP, family history of CAD, obesity. Risk Scores: Score 0 - 3: 2.5% MACE over next 6 weeks - Discharge Home Score 4 - 6: 20.3% MACE over next 6 weeks - Admit for Clinical Observation Score 7 - 10: 72.7% MACE over next 6 weeks - Early Invasive Strategies Course & Med Decision Making: Course & Med Decision Making Pertinent Labs and Imaging studies reviewed. (See chart for details) Patient continue clindamycin previously directed. Must follow-up with dentist as planned on Sunday. Take Tylenol and ibuprofen for pain. Marked pain may take Percocet up to 4 times a day. Impression: 1. Dental pain 2. Dental abscess suspect an area tooth 12 [] Dragon Disclaimer: Dragon Disclaimer: This electronic medical record was generated, in whole or in part, using a voice recognition dictation system. Departure Departure: Disposition: 01 DC HOME SELF CARE/HOMELESS Condition: STABLE Referrals: PCP,NO (PCP) Scripts Oxycodone HCl/Acetaminophen (Percocet 5-325 mg Tablet) 1 Each Tablet 1 TAB PO PRN QID PRN for PAIN MDD 4 Tablet(s) for 7 Days, #30 TAB 0 Refills Prov: DUANE NICOLE MD 08/15/20 Dragon Disclaimer This chart was dictated in whole or in part using Voice Recognition software in a busy, high-work load, and often noisy Emergency Department environment. It ma y contain unintended and wholly unrecognized errors or omissions. DUANE NICOLE MD Aug 15, 2020 03:21
[2020-08-15] MEDS ORDERED: oxyCODONE/APAP 5/325 1 TAB TABLET ONE (03:50)
[2020-08-15] MEDS ORDERED: OXYC-325 PO (03:52)
[2020-08-15] MEDS ORDERED: oxyCODONE/APAP 5/325 1 TAB TABLET PO ONE (04:00)
== END 2020-08-15 04:00 | disposition home or self-care (01) ==
LOC: ER 03:04
DX: S02.5XXA Fracture of tooth (traumatic), initial encounter for closed fracture (principal); K04.7 Periapical abscess without sinus; J45.909 Unspecified asthma, uncomplicated; G43.909 Migraine, unspecified, not intractable, without status migrainosus; F43.10 Post-traumatic stress disorder, unspecified; F41.9 Anxiety disorder, unspecified; F17.210 Nicotine dependence, cigarettes, uncomplicated; Z88.8 Allergy status to other drugs, medicaments and biological substances; Z88.0 Allergy status to penicillin; Z88.1 Allergy status to other antibiotic agents; Z88.5 Allergy status to narcotic agent; Z88.2 Allergy status to sulfonamides; X58.XXXA Exposure to other specified factors, initial encounter; Y93.89 Activity, other specified; Y92.89 Other specified places as the place of occurrence of the external cause; Y99.8 Other external cause status
CPT/HCPCS: 99283

== ENCOUNTER 2020-09-18 23:57 | Emergency (ER) | payer SELFPAY ==
[~2020-09-18] VITALS: Ht 160 cm; Wt 111.8 kg
[2020-09-19 00:16] VITALS: BP 151/94
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
[2020-09-19] MEDS ORDERED: FLUC100T7 PO (01:03)
[2020-09-19] MEDS ORDERED: CLIN300C8 PO (01:03)
[2020-09-19] MEDS ORDERED: HYDR-1179 PO (01:03)
[2020-09-19] MEDS ORDERED: oxyCODONE/APAP 5/325 1 TAB TABLET PO ONE (01:30)
[2020-09-19] MEDS ORDERED: CLINDAMYCIN HCL 150 MG CAPSULE PO ONE (01:30)
== END 2020-09-19 01:20 | disposition home or self-care (01) ==
LOC: ER 23:57
DX: N76.4 Abscess of vulva (principal); F41.9 Anxiety disorder, unspecified; G43.909 Migraine, unspecified, not intractable, without status migrainosus; F17.210 Nicotine dependence, cigarettes, uncomplicated; F43.10 Post-traumatic stress disorder, unspecified; Z98.890 Other specified postprocedural states; Z98.51 Tubal ligation status; Z88.8 Allergy status to other drugs, medicaments and biological substances; Z88.5 Allergy status to narcotic agent; Z88.1 Allergy status to other antibiotic agents; Z88.2 Allergy status to sulfonamides; Z88.6 Allergy status to analgesic agent
CPT/HCPCS: 56405; 99284

== ENCOUNTER 2020-09-22 14:50 | Emergency (ER) | payer SELFPAY ==
[~2020-09-22] VITALS: Ht 160 cm; Wt 111.8 kg
[~2020-09-22 14:50] MED LIST changes: +FLUC100T7 PO; +HYDR-1179 PO
[2020-09-22 14:53] VITALS: BP 151/94
[2020-09-22] MEDS ORDERED: HYDROcodone/APAP 5/325MG 1 TAB TABLET PO ONE (15:15)
[2020-09-22] MEDS ORDERED: HYDR-3165 PO (15:23)
--- NOTE | 2020-09-22 15:23 | PHYS DOC ---
Past History Past Medical History: Anxiety, Asthma, Migraines, Other Additional Past Medical Histor: PTSD Past Surgical History: , Tubal ligation, Other Additional Past Surgical Histo: ORAL SURGERY(TOOTH EXTRACTION) Smoking: Cigarettes Alcohol Use: None Drug Use: None Adult General Chief Complaint Chief Complaint: ABSCESS HPI HPI Patient is a 29-year-old female patient presented to the ED today complaining of moderate pain to the right labia after having an abscess drained 3 days ago. Patient states she was sent home with Vicoprofen and clindamycin. She states the Vicoprofen is not helping with her pain and it also limits her chances of taking ibuprofen. Patient denies any fever or trismus. She states she has trace amount of drainage from the area. States her pain to the right labia is on friction or touching the region. Describes the pain as throbbing and intermittent. Review of Systems Review of Systems Constitutional: Denies fever or chills [] Musculoskeletal: Denies back pain or joint pain [] Integument: Reports right labia pain Neurologic: Denies headache, focal weakness or sensory changes [] All other systems were reviewed and found to be within normal limits, except as documented in this note. Current Medications Current Medications Current Medications Medications (Trade) Dose Ordered Sig/Sondra Start Time Stop Time Status Last Admin Dose Admin Acetaminophen/ Hydrocodone Bitart (Lortab 5/325) 1 tab 1X ONCE 09/22/20 15:15 09/22/20 15:16 UNV Allergies Allergies Allergies Coded Allergies Type Severity Reaction Last Updated Verified dextromethorphan Allergy Severe 03/25/20 Yes prednisone Allergy Severe 03/25/20 Yes ketorolac Allergy Intermediate 03/25/20 Yes Penicillins Allergy Unknown 11/15/19 Yes amoxicillin Allergy Unknown 03/25/20 Yes codeine Allergy Unknown 11/15/19 Yes morphine Allergy Unknown 11/15/19 Yes naproxen Allergy Unknown 12/25/19 Yes prednisolone Allergy Unknown 12/25/19 Yes sulfamethoxazole Allergy Unknown 11/15/19 Yes tramadol Allergy Unknown 12/25/19 Yes trimethoprim Allergy Unknown 11/15/19 Yes Physical Exam Physical Exam Constitutional: Well developed, well nourished, no acute distress, non-toxic appearance. [] Skin: Warm, dry, right labia majora with an incision approximately 0.5 cm, no drainage, no erythema. Back: No tenderness, no CVA tenderness. [] Extremities: No tenderness, no cyanosis, no clubbing, ROM intact, no edema. [] Neurologic: Alert and oriented X 3, normal motor function, normal sensory function, no focal deficits noted. [] Psychologic: Affect normal, judgement normal, mood normal. [] Current Patient Data Vital Signs Vital Signs Date Time Temp Pulse Resp B/P (MAP) Pulse Ox O2 Delivery O2 Flow Rate FiO2 09/22/20 14:53 97.9 112 16 151/94 (113) 97 Room Air EKG EKG [] Radiology/Procedures Radiology/Procedures [] Heart Score Risk Factors: Risk Factors: DM, Current or recent (<one month) smoker, HTN, HLP, family history of CAD, obesity. Risk Scores: Risk Factors: DM, Current or recent (<one month) smoker, HTN, HLP, family history of CAD, obesity. Course & Med Decision Making Course & Med Decision Making Pertinent Labs and Imaging studies reviewed. (See chart for details) This 59-year-old female patient presented to the ED today complaining of right labia pain from an abscess that was drained 3 days ago. Patient is on clindamycin. Area appears to be healing well. Continue to encourage warm compresses and keeping the area clean and dry and completing her antibiotics. 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 Dragon Disclaimer Dragon Disclaimer This electronic medical record was generated, in whole or in part, using a voice recognition dictation system. Departure Departure: Impression: Primary Impression: Wound check, abscess Disposition: 01 DC HOME SELF CARE/HOMELESS Condition: STABLE Referrals: PCP,NO (PCP) Follow up with Dr. Ifeanyi Castro [address] [facility] [facility] [address], [place] [address] Patient Instructions: Wound Check Additional Instructions: Your abscess appears to be healing well. You can wash the area once or twice with warm water, regular soap. Apply warm compresses to the area twice a day. Complete the prescribed antibiotics he got from the emergency room 3 days ago. Follow up with Dr. Ifeanyi Castro [address], [place] [address] Scripts Ibuprofen (IBUPROFEN) 800 Mg Tablet 1 TAB PO TID, #30 TAB Prov: MUTUNGA,JAE AUTOMOTIVE ELECTRICIAN 09/22/20 Hydrocodone Bit/Acetaminophen (NORCO 5-325 TABLET) 1 Each Tablet 1 TAB PO Q6HRS, #14 TAB Prov: JAE RIVAS APRN 09/22/20 JAE RIVAS APRN Sep 22, 2020 15:23
[2020-09-22] MEDS ORDERED: IBUP800T19 PO ×2 (15:30→15:33)
== END 2020-09-22 15:39 | disposition home or self-care (01) ==
LOC: ER 14:50
DX: Z48.01 Encounter for change or removal of surgical wound dressing (principal); N76.4 Abscess of vulva; J45.909 Unspecified asthma, uncomplicated; G43.909 Migraine, unspecified, not intractable, without status migrainosus; F43.10 Post-traumatic stress disorder, unspecified; F17.210 Nicotine dependence, cigarettes, uncomplicated; Z88.8 Allergy status to other drugs, medicaments and biological substances; Z88.0 Allergy status to penicillin; Z88.1 Allergy status to other antibiotic agents; Z88.2 Allergy status to sulfonamides
CPT/HCPCS: 99283

== ENCOUNTER 2020-10-25 19:03 | Emergency (ER) | payer OTHER ==
[~2020-10-25] VITALS: Ht 160 cm; Wt 111.8 kg
[~2020-10-25 19:03] MED LIST changes: -CLIN150C14 PO; +CLIN150C15 PO; -CLIN300C8 PO; +CLIN300C9 PO
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
[2020-10-25] MEDS ORDERED: oxyCODONE/APAP 5/325 1 TAB TABLET PO ONE (19:30)
[2020-10-25] MEDS ORDERED: CYCLOBENZAPRINE 10 MG TABLET. PO ONE ×2 (19:30→19:45)
[2020-10-25] MEDS ORDERED: OXYC-325 PO ×2 (19:36→21:17)
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
[2020-10-25] MEDS ORDERED: METH-38 PO (20:07)
[2020-10-25 20:40] VITALS: BP 126/79
== END 2020-10-25 20:40 | disposition home or self-care (01) ==
LOC: ER 19:03
DX: S13.8XXA Sprain of joints and ligaments of other parts of neck, initial encounter (principal); S20.219A Contusion of unspecified front wall of thorax, initial encounter; M54.5 Low back pain; F41.9 Anxiety disorder, unspecified; J45.909 Unspecified asthma, uncomplicated; G43.909 Migraine, unspecified, not intractable, without status migrainosus; F17.210 Nicotine dependence, cigarettes, uncomplicated; Z98.51 Tubal ligation status; Z98.890 Other specified postprocedural states; Z88.0 Allergy status to penicillin; Z88.1 Allergy status to other antibiotic agents; Z88.5 Allergy status to narcotic agent; Z88.8 Allergy status to other drugs, medicaments and biological substances; V98.8XXA Other specified transport accidents, initial encounter; Y93.89 Activity, other specified; Y92.413 State road as the place of occurrence of the external cause; Y99.8 Other external cause status
CPT/HCPCS: 71046; 72125; 99284

== ENCOUNTER 2020-11-12 23:08 | Emergency (ER) | payer OTHER ==
[~2020-11-12] VITALS: Ht 160 cm; Wt 113.6 kg
[~2020-11-12 23:08] MED LIST changes: +METH-38 PO
[2020-11-12 23:21] VITALS: BP 137/110
[2020-11-12] MEDS ORDERED: oxyCODONE/APAP 5/325 1 TAB TABLET PO ONE (23:30)
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
[2020-11-13] MEDS ORDERED: OXYC-325 PO (21:16)
== END 2020-11-12 23:45 | disposition home or self-care (01) ==
LOC: ER 23:08
DX: M62.838 Other muscle spasm (principal); J45.909 Unspecified asthma, uncomplicated; G43.909 Migraine, unspecified, not intractable, without status migrainosus; F43.10 Post-traumatic stress disorder, unspecified; F17.210 Nicotine dependence, cigarettes, uncomplicated; Z98.51 Tubal ligation status; Z98.890 Other specified postprocedural states; Z88.8 Allergy status to other drugs, medicaments and biological substances; Z88.2 Allergy status to sulfonamides; Z88.0 Allergy status to penicillin; Z88.1 Allergy status to other antibiotic agents
CPT/HCPCS: 99283

== ENCOUNTER 2020-11-13 19:28 | Emergency (ER) | payer OTHER ==
[~2020-11-13] VITALS: Ht 160 cm; Wt 113.6 kg
[2020-11-13 19:41] VITALS: BP 162/98
[2020-11-13] MEDS ORDERED: oxyCODONE/APAP 5/325 1 TAB TABLET PO ONE (21:00)
[2020-11-13] MEDS ORDERED: LIDOCAINE (700MG/PATCH) PATCH. TD SCH (21:15)
[2020-11-13] MEDS ORDERED: OXYC-325 PO (21:16)
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
[2020-11-13] MEDS ORDERED: LIDOCAINE (700MG/PATCH) PATCH. TD ONE (21:30)
== END 2020-11-13 21:20 | disposition home or self-care (01) ==
LOC: ER 19:28
DX: M54.5 Low back pain (principal); M62.830 Muscle spasm of back; F41.9 Anxiety disorder, unspecified; J45.909 Unspecified asthma, uncomplicated; G43.909 Migraine, unspecified, not intractable, without status migrainosus; F43.10 Post-traumatic stress disorder, unspecified; F17.210 Nicotine dependence, cigarettes, uncomplicated; Z98.51 Tubal ligation status; Z98.890 Other specified postprocedural states; Z88.8 Allergy status to other drugs, medicaments and biological substances; Z88.5 Allergy status to narcotic agent; Z88.0 Allergy status to penicillin; Z88.1 Allergy status to other antibiotic agents; Z88.2 Allergy status to sulfonamides
CPT/HCPCS: 99283

== ENCOUNTER 2020-11-22 21:48 | Emergency (ER) | payer SELFPAY ==
[~2020-11-22] VITALS: Ht 160 cm; Wt 113.6 kg
--- NOTE | 2020-11-22 23:49 | PHYS DOC ---
Past History Past Medical History: Anxiety, Asthma, Migraines, Other Additional Past Medical Histor: PTSD Past Surgical History: , Tubal ligation, Other Additional Past Surgical Histo: ORAL SURGERY(TOOTH EXTRACTION) Smoking: Cigarettes Alcohol Use: None Drug Use: None General Adult EDM: Chief Complaint: FACE PROBLEM HPI: HPI: ".. They said if I got the molar pulled on the right my TMJ would go away.. it is worse tonight..." Patient is a 29 year old female who presents with above hx and complaints of TMJ on the right. Patient has had this problem before. Has followed with dentistry who extracted the molar on the right. Patient presents tonight with the same complaints as previous which she followed with her dentist with. No history of trauma. No history of ill contacts. No history changes in meds. Patient does not follow with primary care. Review of Systems: Review of Systems: Constitutional: Denies fever or chills Eyes: Denies change in visual acuity HENT: complains of TMJ Respiratory: Denies cough or shortness of breath Cardiovascular: Denies chest pain or edema GI: Denies abdominal pain, nausea, vomiting, bloody stools or diarrhea : Denies dysuria Musculoskeletal: Denies back pain or joint pain Integument: Denies rash Neurologic: Denies headache, focal weakness or sensory changes Endocrine: Denies polyuria or polydipsia Lymphatic: Denies swollen glands Psychiatric: Denies depression or anxiety Family History: Family History: Noncontributory to presentation Current Medications: Current Meds: See nursing for home meds Allergies: Allergies: Allergies Coded Allergies Type Severity Reaction Last Updated Verified dextromethorphan Allergy Severe 03/25/20 Yes prednisone Allergy Severe 03/25/20 Yes ketorolac Allergy Intermediate 03/25/20 Yes Penicillins Allergy Unknown 11/15/19 Yes amoxicillin Allergy Unknown 03/25/20 Yes codeine Allergy Unknown 11/15/19 Yes morphine Allergy Unknown 11/15/19 Yes naproxen Allergy Unknown 12/25/19 Yes prednisolone Allergy Unknown 12/25/19 Yes sulfamethoxazole Allergy Unknown 11/15/19 Yes tramadol Allergy Unknown 12/25/19 Yes trimethoprim Allergy Unknown 11/15/19 Yes Physical Exam: PE: Constitutional: moderate acute distress, non-toxic appearance. [] HENT: Normocephalic, atraumatic, bilateral external ears normal, oropharynx moist, no oral exudates, nose normal. Crepitation with opening and closing of mouth. Patient localizes pain to right TMJ. Eyes: PERRLA, EOMI, conjunctiva normal, no discharge. [] Neck: Normal range of motion, no tenderness, supple, no stridor. More than 17 inches circumference Cardiovascular:Heart rate regular rhythm, no murmur [] Lungs & Thorax: Bilateral breath sounds equal apex on auscultation [] Abdomen: Bowel sounds normal, soft, no tenderness, no masses, no pulsatile masses. Obese.. Surgery scars. Skin: Warm, dry, no erythema, no rash. [] Back: No tenderness, no CVA tenderness. [] Extremities: No tenderness, no cyanosis, no clubbing, ROM intact, no edema. [] Neurologic: Alert and oriented X 3, normal motor function, normal sensory functi on, no focal deficits noted. [] Psychologic: Affect anxious, judgement normal, mood normal. [] EKG: EKG: [] Radiology/Procedures: Radiology/Procedures: [] Heart Score: Risk Factors: Risk Factors: DM, Current or recent (<one month) smoker, HTN, HLP, family histo ry of CAD, obesity. Risk Scores: Score 0 - 3: 2.5% MACE over next 6 weeks - Discharge Home Score 4 - 6: 20.3% MACE over next 6 weeks - Admit for Clinical Observation Score 7 - 10: 72.7% MACE over next 6 weeks - Early Invasive Strategies Course & Med Decision Making: Course & Med Decision Making Pertinent Labs and Imaging studies reviewed. (See chart for details) Patient Tylenol and ibuprofen for pain. For marked pain may take Vicoprofen up to 4 times a day. Must follow-up with ENT/oral surgery. May need injection or surgical repair of right TMJ. Possible candidate for oral insert. Impression : 1. TMJ [] Dragon Disclaimer: Michael Disclaimer: This electronic medical record was generated, in whole or in part, using a voice recognition dictation system. Departure Departure: Referrals: PCP,NO (PCP) Scripts Hydrocodone/Ibuprofen (HYDROCODONE-IBUPROFEN 7.5-200 ) 1 Each Tablet 1 TAB PO PRN Q6HRS PRN for PAIN, #30 TAB 0 Refills Prov: DUANE NICOLE MD 11/23/20 Michael Disclaimer This chart was dictated in whole or in part using Voice Recognition software in a busy, high-work load, and often noisy Emergency Department environment. It may contain unintended and wholly unrecognized errors or omissions. DUANE NICOLE MD Nov 22, 2020 23:49
[2020-11-23] MEDS ORDERED: HYDR-1179 PO (00:48)
[2020-11-23] MEDS ORDERED: HYDROcodone/APAP 5/325MG 1 TAB TABLET PO ONE (01:00)
[2020-11-23 01:06] VITALS: BP 152/92
== END 2020-11-23 01:06 | disposition home or self-care (01) ==
LOC: ER 21:48
DX: M26.621 Arthralgia of right temporomandibular joint (principal); J45.909 Unspecified asthma, uncomplicated; G43.909 Migraine, unspecified, not intractable, without status migrainosus; F41.9 Anxiety disorder, unspecified; F43.10 Post-traumatic stress disorder, unspecified; F17.210 Nicotine dependence, cigarettes, uncomplicated; Z88.1 Allergy status to other antibiotic agents; Z88.2 Allergy status to sulfonamides; Z88.8 Allergy status to other drugs, medicaments and biological substances
CPT/HCPCS: 99283

== ENCOUNTER 2020-11-26 21:31 | Emergency (ER) | payer SELFPAY ==
[~2020-11-26] VITALS: Ht 160 cm; Wt 119.7 kg
--- NOTE | 2020-11-26 21:36 | PHYS DOC ---
Past History Past Medical History: Anxiety, Asthma, Migraines, Other Additional Past Medical Histor: PTSD Past Surgical History: , Tubal ligation, Other Additional Past Surgical Histo: ORAL SURGERY(TOOTH EXTRACTION) Smoking: Cigarettes Alcohol Use: None Drug Use: None General Adult HPI: HPI: ".. The right side my jaw is still hurting.. the pain meds are not helping..." Patient is a 29 year old female who presents with above hx and complaints of right TMJ pain and neuralgia. Has not taking the Vicoprofen. Has not made a dental or oral surgery follow-up. Has not kept follow-up with primary care. Pt. follows with Dr. Lopez. Has not taken pain meds. Presents today with increased pain over right TMJ. Patient convinced it does not have a dental component, so has not made a dental follow-up. Patient did have mild elevation in temperature tonight on presentation. There is more swelling right TMJ area. Has had previous problems with TMJ on right. Patient did have a molar pulled on the right which was to help her chronic TMJ and trigeminal neuralgia. No history immunosuppression. No history of travel. No history of trauma. Review of Systems: Review of Systems: Constitutional: Denies fever or chills Eyes: Denies change in visual acuity HENT: Complains of right TMJ and trigeminal pain Respiratory: Denies cough or shortness of breath Cardiovascular: Denies chest pain or edema GI: Denies abdominal pain, nausea, vomiting, bloody stools or diarrhea : Denies dysuria Musculoskeletal: Denies back pain or joint pain Integument: Denies rash Neurologic: Denies headache, focal weakness or sensory changes Endocrine: Denies polyuria or polydipsia Lymphatic: Denies swollen glands Psychiatric: Denies depression or anxiety Family History: Family History: Noncontributory to presentation Current Medications: Current Meds: See nursing for home meds Allergies: Allergies: Allergies Coded Allergies Type Severity Reaction Last Updated Verified dextromethorphan Allergy Severe 03/25/20 Yes prednisone Allergy Severe 03/25/20 Yes ketorolac Allergy Intermediate 03/25/20 Yes Penicillins Allergy Unknown 11/15/19 Yes amoxicillin Allergy Unknown 03/25/20 Yes codeine Allergy Unknown 11/15/19 Yes morphine Allergy Unknown 11/15/19 Yes naproxen Allergy Unknown 12/25/19 Yes prednisolone Allergy Unknown 12/25/19 Yes sulfamethoxazole Allergy Unknown 11/15/19 Yes tramadol Allergy Unknown 12/25/19 Yes trimethoprim Allergy Unknown 11/15/19 Yes Physical Exam: PE: Constitutional: in acute distress, non-toxic appearance. [] HENT: Normocephalic, atraumatic, bilateral external ears normal, oropharynx moist, no oral exudates, nose normal. Right TMJ area is swollen. Right TMJ pain and crepitation. Eyes: PERRLA, EOMI, conjunctiva normal, no discharge. [] Neck: Normal range of motion, no tenderness, supple, no stridor. [] Cardiovascular:Heart rate regular rhythm, no murmur [] Lungs & Thorax: Bilateral breath sounds equal at apex auscultation [] Abdomen: Bowel sounds normal, soft, no tenderness, no masses, no pulsatile masses. Obese. Old surgical scar Skin: Warm, dry, no erythema, no rash. [] Back: No tenderness, no CVA tenderness. [] Extremities: No tenderness, no cyanosis, no clubbing, ROM intact, no edema. [] Neurologic: Alert and oriented X 3, normal motor function, normal sensory function, no focal deficits noted. [] Psychologic: Affect anxious, judgement normal, mood normal. [] EKG: EKG: [] Radiology/Procedures: Radiology/Procedures: [] Heart Score: Risk Factors: Risk Factors: DM, Current or recent (<one month) smoker, HTN, HLP, family history of CAD, obesity. Risk Scores: Score 0 - 3: 2.5% MACE over next 6 weeks - Discharge Home Score 4 - 6: 20.3% MACE over next 6 weeks - Admit for Clinical Observation Score 7 - 10: 72.7% MACE over next 6 weeks - Early Invasive Strategies Course & Med Decision Making: Course & Med Decision Making Pertinent Labs and Imaging studies reviewed. (See chart for details) Patient use ice packs as needed. Take Tylenol and ibuprofen for pain. For marked pain take pain meds as directed. Would add clindamycin 300 mg 3 times a day because of increased temp and swelling. Patient must follow-up. Impression: 1. Dental pain/infection 2. TMJ dysfunction 3. Trigeminal neuralgia [] Dragon Disclaimer: Dragon Disclaimer: This electronic medical record was generated, in whole or in part, using a voice recognition dictation system. Departure Departure: Referrals: BRANDY LOPEZ MD (PCP) Scripts Clindamycin Hcl (CLINDAMYCIN HCL) 300 Mg Capsule 300 MG PO TID for dental /tmj for 14 Days, #42 CAP Prov: DUANE NICOLE MD 11/26/20 Michael Disclaimer This chart was dictated in whole or in part using Voice Recognition software in a busy, high-work load, and often noisy Emergency Department environment. It may contain unintended and wholly unrecognized errors or omissions. DUANE NICOLE MD Nov 26, 2020 21:36
[2020-11-26 21:40] VITALS: BP 161/100
[2020-11-26] MEDS ORDERED: oxyCODONE/APAP 7.5/325 1 TAB TABLET PO ONE (22:00)
[2020-11-26] MEDS ORDERED: CLIN300C9 PO (22:12)
[2020-11-26] MEDS ORDERED: CLINDAMYCIN HCL 150 MG CAPSULE PO ONE (22:30)
[2020-11-28] MEDS ORDERED: ALBU2.5V8 INH (04:44)
== END 2020-11-26 22:21 | disposition home or self-care (01) ==
LOC: ER 21:31
DX: K08.89 Other specified disorders of teeth and supporting structures (principal); G50.0 Trigeminal neuralgia; M26.601 Right temporomandibular joint disorder, unspecified; Z88.1 Allergy status to other antibiotic agents; Z88.0 Allergy status to penicillin; F41.9 Anxiety disorder, unspecified; J45.909 Unspecified asthma, uncomplicated; G43.909 Migraine, unspecified, not intractable, without status migrainosus; F43.12 Post-traumatic stress disorder, chronic; F17.210 Nicotine dependence, cigarettes, uncomplicated; Z98.890 Other specified postprocedural states; Z98.51 Tubal ligation status; Z88.6 Allergy status to analgesic agent; Z88.2 Allergy status to sulfonamides
CPT/HCPCS: 99283

== ENCOUNTER 2020-11-27 14:57 | Emergency (ER) | payer SELFPAY ==
[~2020-11-27] VITALS: Ht 160 cm; Wt 119.0 kg
--- NOTE | 2020-11-27 15:19 | PHYS DOC ---
Past History Past Medical History: Anxiety, Asthma, Migraines, Other Additional Past Medical Histor: PTSD Past Surgical History: , Tubal ligation, Other Additional Past Surgical Histo: ORAL SURGERY(TOOTH EXTRACTION) Smoking: Cigarettes Alcohol Use: None Drug Use: None Adult General Chief Complaint Chief Complaint: FACE PROBLEM HPI HPI Patient is a 29-year-old female who presents to the emergency room for trigeminal neuralgia. Patient has a long history of this. She was seen here last night for the same and was placed on clindamycin at that time. She was also seen here for the same thing 4 days ago and received a prescription for na rcotic pain medicine at that time. She states that she has been taking ibuprofen and Tylenol at home. She does not mention taking oxycodone. She states that the ibuprofen and Tylenol are not working. She states she has a follow-up appointment with her doctor on Sunday. She states that nothing is changed since her visit last night but that her pain is unbearable. Review of Systems Review of Systems Complete ROS is negative unless otherwise documented in HPI Allergies Allergies Allergies Coded Allergies Type Severity Reaction Last Updated Verified dextromethorphan Allergy Severe 03/25/20 Yes prednisone Allergy Severe 03/25/20 Yes ketorolac Allergy Intermediate 03/25/20 Yes Penicillins Allergy Unknown 11/15/19 Yes amoxicillin Allergy Unknown 03/25/20 Yes codeine Allergy Unknown 11/15/19 Yes morphine Allergy Unknown 11/15/19 Yes naproxen Allergy Unknown 12/25/19 Yes prednisolone Allergy Unknown 12/25/19 Yes sulfamethoxazole Allergy Unknown 11/15/19 Yes tramadol Allergy Unknown 12/25/19 Yes trimethoprim Allergy Unknown 11/15/19 Yes Physical Exam Physical Exam General: Awake, alert, NAD. Well Nourished, well hydrated. Cooperative HEENT: Atraumatic, EOMI, PERRL, airway patent, moist oral mucosa, no facial swelling noted Neck: Supple, trachea midline Respiratory: CTA bilaterally, normal effort, no wheezing/crackles CV: RRR, no murmur, cap refill <2 GI: Soft, nondistended, nontender, no masses MSK: No obvious deformities Skin: Warm, dry, intact Neuro: A&O x3, speech NL, sensory and motor grossly intact, no focal deficits Psych: Normal affect, normal mood, not suicidal or homicidal Current Patient Data Vital Signs Vital Signs Date Time Temp Pulse Resp B/P (MAP) Pulse Ox O2 Delivery O2 Flow Rate FiO2 11/27/20 15:09 97.4 127 20 164/100 (121) 98 Room Air EKG EKG [] Radiology/Procedures Radiology/Procedures [] Heart Score Risk Factors: Risk Factors: DM, Current or recent (<one month) smoker, HTN, HLP, family history of CAD, obesity. Risk Scores: Risk Factors: DM, Current or recent (<one month) smoker, HTN, HLP, family history of CAD, obesity. Course & Med Decision Making Course & Med Decision Making Pertinent Labs and Imaging studies reviewed. (See chart for details) Patient is a 29-year-old female who presents to the emergency room complaining of trigeminal neuralgia requesting pain medication. Patient has had 5 visits to the emergency room in the last 2 weeks and has received 7 prescriptions for narcotic pain medication from this emergency room in the last 60 days. Patient received 30 tablets of oxycodone 4 days ago. She has not yet followed up. I have discussed with the patient that any further pain control will need to be done through her primary care physician. Will not give any narcotics here in the emergency room or prescription. Patient does not have any facial swelling here in the emergency room that is concerning for infection. Patient's test results and vitals while in the ED were fully reviewed and discussed with the patient. Patient is stable and at this time does not need admission to the hospital. We have discussed strict return precautions and the importance of following up with their Primary Care Physician. Patient stated understanding and was given an opportunity to ask any questions. Patient is in agreement with plan. Dragon Disclaimer Dragon Disclaimer This electronic medical record was generated, in whole or in part, using a voice recognition dictation system. Departure Departure: Impression: Primary Impression: Trigeminal neuralgia Disposition: 01 DC HOME SELF CARE/HOMELESS Condition: STABLE Referrals: BRANDY LOPEZ MD (PCP) Patient Instructions: Trigeminal Neuralgia VIKY CHURCH MD Nov 27, 2020 15:19
[2020-11-27] MEDS ORDERED: LIDOCAINE (700MG/PATCH) PATCH. TD ONE (15:30)
[2020-11-27] MEDS ORDERED: PATCH REMOVAL. MC SCH (21:00)
[2020-11-28] MEDS ORDERED: ALBU2.5V8 INH (04:44)
== END 2020-11-27 15:30 | disposition home or self-care (01) ==
LOC: ER 14:57
DX: G50.0 Trigeminal neuralgia (principal); F41.9 Anxiety disorder, unspecified; J45.909 Unspecified asthma, uncomplicated; G43.909 Migraine, unspecified, not intractable, without status migrainosus; Z98.51 Tubal ligation status; Z98.890 Other specified postprocedural states; Z88.0 Allergy status to penicillin; Z88.1 Allergy status to other antibiotic agents; Z88.2 Allergy status to sulfonamides; Z88.5 Allergy status to narcotic agent; Z88.6 Allergy status to analgesic agent
CPT/HCPCS: 99283

== ENCOUNTER 2020-11-27 21:17 | Emergency (ER) | payer SELFPAY ==
[~2020-11-27] VITALS: Ht 160 cm; Wt 119.0 kg
[2020-11-27 21:29] VITALS: BP 154/82
--- NOTE | 2020-11-27 21:52 | PHYS DOC ---
Past History Past Medical History: Anxiety, Asthma, Migraines, Other Additional Past Medical Histor: PTSD, DRUG SEEKING BEHAVIOR (JAE RIVAS APRN) Past Surgical History: , Tubal ligation, Other Additional Past Surgical Histo: ORAL SURGERY(TOOTH EXTRACTION) (JAE RIVAS APRN) Smoking: Cigarettes Alcohol Use: None Drug Use: None (JAE RIVAS APRN) Adult General Chief Complaint Chief Complaint: FACE PAIN [facility] HPI Patient is a 29-year-old female patient presenting to the ED today complaining of left facial pain for trigeminal neuralgia, this is a chronic condition for her. Patient reports being seen in the ED this morning and given lidocaine patch which she states made her face swell up. Denies any fever. Denies any trismus. She states she has an appointment with her PCP on Sunday and would like some medicine specifically pain medicine to get her until then. (JAE RIVAS APRN) Review of Systems Review of Systems Constitutional: Denies fever or chills [] Eyes: Denies change in visual acuity, redness, or eye pain [] HENT: Denies nasal congestion or sore throat [] Respiratory: Denies cough or shortness of breath [] Cardiovascular: No additional information not addressed in HPI [] GI: Denies abdominal pain, nausea, vomiting, bloody stools or diarrhea [] : Denies dysuria or hematuria [] Musculoskeletal: Denies back pain or joint pain [] Integument: Denies rash or skin lesions [] Neurologic: Denies headache, focal weakness or sensory changes, reports left facial swelling and pain. All other systems were reviewed and found to be within normal limits, except as documented in this note. (JAE RIVAS APRN) Allergies Allergies Allergies Coded Allergies Type Severity Reaction Last Updated Verified dextromethorphan Allergy Severe 03/25/20 Yes prednisone Allergy Severe 03/25/20 Yes ketorolac Allergy Intermediate 03/25/20 Yes Penicillins Allergy Unknown 11/15/19 Yes amoxicillin Allergy Unknown 03/25/20 Yes codeine Allergy Unknown 11/15/19 Yes morphine Allergy Unknown 11/15/19 Yes naproxen Allergy Unknown 12/25/19 Yes prednisolone Allergy Unknown 12/25/19 Yes sulfamethoxazole Allergy Unknown 11/15/19 Yes tramadol Allergy Unknown 12/25/19 Yes trimethoprim Allergy Unknown 11/15/19 Yes (JAE RIVAS APRN) Physical Exam Physical Exam Constitutional: Well developed, well nourished, no acute distress, non-toxic appearance. [] HENT: Normocephalic, atraumatic, bilateral external ears normal, oropharynx moist, no oral exudates, nose normal. [] Eyes: PERRLA, EOMI, conjunctiva normal, no discharge. [] Neck: Normal range of motion, no tenderness, supple, no stridor. [] Cardiovascular:Heart rate regular rhythm, no murmur [] Lungs & Thorax: Bilateral breath sounds clear to auscultation [] Abdomen: Bowel sounds normal, soft, no tenderness, no masses, no pulsatile masses. [] Skin: Warm, dry, no erythema, no rash. [] Back: No tenderness, no CVA tenderness. [] Extremities: No tenderness, no cyanosis, no clubbing, ROM intact, no edema. [] Neurologic: Alert and oriented X 3, normal motor function, normal sensory function, no focal deficits noted. Cranial nerves II through XII intact. Slight swelling noted on the left facial region. Tenderness on palpation of the left facial region. Psychologic: Affect normal, judgement normal, mood normal. [] (JAE RIVAS APRN) Current Patient Data Vital Signs Vital Signs Date Time Temp Pulse Resp B/P (MAP) Pulse Ox O2 Delivery O2 Flow Rate FiO2 11/27/20 21:29 97.8 110 20 154/82 (106) 98 Room Air (JAE RIVAS APRN) EKG EKG [] (JAE RIVAS APRN) Radiology/Procedures Radiology/Procedures [] (JAE RIVAS APRN) Heart Score Risk Factors: Risk Factors: DM, Current or recent (<one month) smoker, HTN, HLP, family history of CAD, obesity. Risk Scores: Risk Factors: DM, Current or recent (<one month) smoker, HTN, HLP, family hist ory of CAD, obesity. (JAE RIVAS APRN) Course & Med Decision Making Course & Med Decision Making Pertinent Labs and Imaging studies reviewed. (See chart for details) This is a 29-year-old female patient presenting to the ED today complaining of trigeminal neuralgia pain and very requesting something for her pain. Stating the Vicoprofen she was given is not working. I asked patient if we can give her nonnarcotic medicine including prednisone, gabapentin, Lyrica. She states she does not want any gabapentin it does not work for her it made her have trouble swallowing when she was young. She states Lyrica is a psych med and does not want any psych meds. Patient was given Vicoprofen 30 tablets on November 23, 2020. She has had 4 prescriptions of narcotics in the last 5 weeks. She has had 7 visiting the ED since the year began and was in the ED this morning. I spoke to patient at length. Informed her I will not give her any controlled drugs. She stated she will then leave if we are not going to give her anything strong for her pain. She left. (JAE RIVAS APRN) Dragon Disclaimer Dragon Disclaimer This electronic medical record was generated, in whole or in part, using a voice recognition dictation system. (JAE RIVAS APRN) Departure Departure: Impression: Primary Impression: Facial pain Additional Impression: Trigeminal nerve disease Disposition: 01 DC HOME SELF CARE/HOMELESS Condition: STABLE Referrals: BRANDY LOPEZ MD (PCP) follow up on Sunday Attending Signature Attending Signature I have participated in the care of this patient and I have reviewed and agree with all pertinent clinical information above including history, exam, and recommendations. (DUANE NICOLE MD) Problem Qualifiers JAE RIVAS APRN Nov 27, 2020 21:52 DUANE NICOLE MD Nov 28, 2020 01:45
[2020-11-28] MEDS ORDERED: ALBU2.5V8 INH (04:44)
== END 2020-11-27 22:05 | disposition home or self-care (01) ==
LOC: ER 21:17
DX: G43.909 Migraine, unspecified, not intractable, without status migrainosus (principal); G50.0 Trigeminal neuralgia; R60.0 Localized edema; F41.9 Anxiety disorder, unspecified; J45.909 Unspecified asthma, uncomplicated; F17.210 Nicotine dependence, cigarettes, uncomplicated; Z98.51 Tubal ligation status; Z98.890 Other specified postprocedural states; Z88.0 Allergy status to penicillin; Z88.1 Allergy status to other antibiotic agents; Z88.6 Allergy status to analgesic agent; Z88.8 Allergy status to other drugs, medicaments and biological substances; Z88.2 Allergy status to sulfonamides
CPT/HCPCS: 99281

== ENCOUNTER 2020-12-31 14:33 | Emergency (ER) | payer SELFPAY ==
[~2020-12-31] VITALS: Ht 160 cm; Wt 119.5 kg
[2020-12-31 14:33] VITALS: BP 148/103
--- NOTE | 2020-12-31 14:38 | PHYS DOC ---
Past History Past Medical History: Anxiety, Asthma, Migraines, Other Additional Past Medical Histor: PTSD, DRUG SEEKING BEHAVIOR (BRIDGETTE BROWNING APRN) Past Surgical History: , Tubal ligation, Other Additional Past Surgical Histo: ORAL SURGERY(TOOTH EXTRACTION) (BRIDGETTE BROWNING APRN) Smoking: Cigarettes Alcohol Use: None Drug Use: None (BRIDGETTE BROWNING APRN) Adult General Chief Complaint Chief Complaint: DENTAL PROBLEM HPI HPI Patient is a 30-year-old female complains of right lower lower molar dental pain for the past week, states she has an emergency appointment to see a dentist this coming Sunday. Patient states she started a clindamycin antibiotic regimen last night. She states she has taken Motrin for pain and continues to have 10/10 pain on a 1-10 pain scale. Denies numbness or tingling to her face or tongue. Denies fever or chills, headache, visual disturbances, throat pain, shortness of breath, chest pain. Patient denies chest palpitations. Patient denies nausea, vomiting, diarrhea, patient denies any other physical complaints or physical concerns. (BRIDGETTE BROWNING APRN) Review of Systems Review of Systems 14 body systems of review of systems have been reviewed. See HPI for pertinent positives and negative responses, otherwise all other systems are negative, nonpertinent or noncontributory. (BRIDGETTE BROWNING APRN) Allergies Allergies Allergies Coded Allergies Type Severity Reaction Last Updated Verified dextromethorphan Allergy Severe 11/28/20 Yes prednisone Allergy Severe 11/28/20 Yes ketorolac Allergy Intermediate 11/28/20 Yes Penicillins Allergy Unknown 11/28/20 Yes amoxicillin Allergy Unknown 11/28/20 Yes codeine Allergy Unknown 11/28/20 Yes morphine Allergy Unknown 11/28/20 Yes naproxen Allergy Unknown 11/28/20 Yes prednisolone Allergy Unknown 11/28/20 Yes sulfamethoxazole Allergy Unknown 11/28/20 Yes tramadol Allergy Unknown 11/28/20 Yes trimethoprim Allergy Unknown 11/28/20 Yes (BRIDGETTE BROWNING APRN) Physical Exam Physical Exam Constitutional: Well developed, well nourished, no acute distress, non-toxic appearance. Patient is complaint of pain exceeds physical exam and presentation. HENT: Normocephalic, atraumatic, bilateral external ears normal, oropharynx moist, no oral exudates, nose normal. Oropharynx moist, pink, no deep tissue infectious process appreciated, marked dental caries, poor dentition with multiple missing teeth, present teeth have multiple stages of decay, patient complained right rear molar on lower side is broken, no purulent process appreciated, open pulp and nerve exposed. No lymphadenopathy of the head or neck appreciated. No decreased sensation to the oral cavity or face. Eyes: No apparent discharge from eyes, conjunctive appear normal, patient tracking normally. Neck: Normal range of motion, no tenderness, supple, no stridor. No nuchal rigidity, no meningismus signs, no trismus appreciated, no drooling. Cardiovascular: Distal cap refill less than 2 seconds. Lungs & Thorax: Patient is in no apparent respiratory distress. Normal respiratory rate. Extremities: Patient is moving all extremities. Neurologic: Alert and oriented X 3, normal motor function, normal sensory function, no focal deficits noted. Psychologic: Affect normal, judgement normal, mood normal. (BRIDGETTE BROWNING APRN) EKG EKG [] (BRIDGETTE BROWNING APRN) Radiology/Procedures Radiology/Procedures [] (BRIDGETTE BROWNING APRN) Heart Score C/O Chest Pain: No Risk Factors: Risk Factors: DM, Current or recent (<one month) smoker, HTN, HLP, family history of CAD, obesity. Risk Scores: Risk Factors: DM, Current or recent (<one month) smoker, HTN, HLP, family history of CAD, obesity. (BRIDGETTE BROWNING APRN) Course & Med Decision Making Course & Med Decision Making Pertinent Labs and Imaging studies reviewed. (See chart for details) 30-year-old female, vital signs reviewed, presents emergency department with concerns of dental pain. Patient has appointment to see dentist this coming Sunday, is on a regimen of clindamycin, physical examination showed marked dental caries, broken teeth. Will give 2 Percocet in ER today. Provide prescription for ibuprofen at home. Strict follow-up to keep dental appointment. Return to ER instructions given to patient. Patient gave verbal understanding of discharge home instructions, will keep appointment with dentist on Sunday, will continue her clindamycin antibiotic regimen, gave understanding of prescription ibuprofen use, return to ER precautions and concerns, patient discharged home. (BRIDGETTE BROWNING APRN) Course & Med Decision Making I oversaw on the above date of service of this patient and discussed the care with the WEB DEVELOPMENT INSTRUCTOR. I agree with the findings, plan of care, and disposition as documented. Electronically signed, Kirsten Granger DO (KIRSTEN GRANGER DO) Michael Disclaimer Michael Disclaimer This electronic medical record was generated, in whole or in part, using a voice recognition dictation system. (BRIDGETTE BROWNING APRN) Departure Departure: Impression: Primary Impression: Dental caries Additional Impression: Pulpitis Disposition: DC HOME SELF CARE/HOMELESS Condition: GOOD Referrals: BRANDY LOPEZ MD (PCP) Patient Instructions: Dental Caries Additional Instructions: Please use medications as prescribed, continue your antibiotic regimen as directed by your physician, please keep your appointment with your dentist this coming Sunday, return to the emergency department for worsening symptoms or other concerns. EMERGENCY DEPARTMENT GENERAL DISCHARGE INSTRUCTIONS Thank you for coming to [facility] (ED) today and trusting us with you care. We trust that you had a positivie experience in our Emergency Department. If you wish to speak to the department management, you may call the director at [phone]. YOUR FOLLOW UP INSTRUCTIONS ARE FOLLOWS: 1. Do you have a private Doctor? If you do not have a private doctor, please ask for a resource list of physicians or clinics that may be able to assist you with follow up care. 2. The Emergency Physician has interpreted your x-rays. The X-Ray specialist will also review them. If there is a change in the findings, you will be notified in 48 hours when at all possible. 3. A lab test or culture has been done, your results will be reviewed and you will be notified if you need a change in treatment. ADDITIONAL INSTRUCTIONS AND INFORMATION: 1. Your care today has been supervised by a physician who is specially trained in emergency care. Many problems require more than one evaluation for a complete diagnosis and treatment. We recommend that you schedule your follow up appointment as recommended to ensure complete treatment of you illness or injury. If you are unable to obtain follow up care and continue to have a problem, or if your condition worsens, we recommend that you return to the ED. 2. We are not able to safely determine your condition over the phone nor are we able to give sound medical advice over the phone. For these safety reasons, if you call for medical advice we will ask you to come to the ED for further evaluation. 3. If you have any questions regarding these discharge instructions please call the ED at [phone]. SAFETY INFORMATION: In the interest of safety, wellness, and injury prevention; we encourage you to wear your sealbelt, if you smoke; quite smoking, and we encourage family to use a protective helmet for bicycling and other sporting events that present an increased risk for head injury. IF YOUR SYMPTOMS WORSEN OR NEW SYMPTOMS DEVELOP, OR YOU HAVE CONCERNS ABOUT YOUR CONDITION; OR IF YOUR CONDITION WORSENS WHILE YOU ARE WAITING FOR YOUR FOLLOW UP APPOINTMENT; EITHER CONTACT YOUR PRIMARY CARE DOCTOR, THE PHYSICIAN WHOSE NAME AND NUMBER YOU WERE GIVEN, OR RETURN TO THE ED IMMEDIATELY. Scripts Chlorhexidine Gluconate (PERIDEX) 15 Ml Mouthwash 15-30 ML PO TID for DENTAL INFECTION for 8 Days, #473 ML 0 Refills Swish and spit 1 to 2 tablespoons 3 times a day. Prov: BRIDGETTE BROWNING APRN 12/31/20 Ibuprofen (IBUPROFEN) 600 Mg Tablet 600 MG PO TID PRN PRN for PAIN, #20 TAB 0 Refills Prov: BRIDGETTE BROWNING APRN 12/31/20 Problem Qualifiers BRIDGETTE BROWNING APRN Dec 31, 2020 14:38 KIRSTEN GRANGER DO Jan 01, 2021 06:27
[2020-12-31] MEDS ORDERED: oxyCODONE/APAP 5/325 1 TAB TABLET PO ONE (15:15)
[2020-12-31] MEDS ORDERED: CHLO15MO2 PO (15:17)
[2020-12-31] MEDS ORDERED: IBUP600T16 PO (15:17)
== END 2020-12-31 15:39 | disposition home or self-care (01) ==
LOC: ER 14:33
DX: K02.9 Dental caries, unspecified (principal); K04.01 Reversible pulpitis; F41.9 Anxiety disorder, unspecified; J45.909 Unspecified asthma, uncomplicated; G43.909 Migraine, unspecified, not intractable, without status migrainosus; F17.210 Nicotine dependence, cigarettes, uncomplicated; F43.10 Post-traumatic stress disorder, unspecified; Z88.8 Allergy status to other drugs, medicaments and biological substances; Z88.2 Allergy status to sulfonamides; Z88.1 Allergy status to other antibiotic agents; Z88.5 Allergy status to narcotic agent
CPT/HCPCS: 99283

== ENCOUNTER 2021-01-02 20:35 | Emergency (ER) | payer SELFPAY ==
[~2021-01-02] VITALS: Ht 160 cm; Wt 120.0 kg
[~2021-01-02 20:35] MED LIST changes: +CHLO15MO2 PO; +IBUP600T16 PO
[2021-01-02 20:54] VITALS: BP 157/89
--- NOTE | 2021-01-02 22:34 | PHYS DOC ---
Past History Past Medical History: Anxiety, Asthma, Fibromyalgia, Migraines, Other Additional Past Medical Histor: PTSD, DRUG SEEKING BEHAVIOR Past Surgical History: , Tubal ligation, Other Additional Past Surgical Histo: ORAL SURGERY(TOOTH EXTRACTION) Smoking: Cigarettes Alcohol Use: None Drug Use: None General Adult EDM: Chief Complaint: DENTAL PROBLEM HPI: HPI: ".. I got really bad dental pain...I just need to get some sleep tonight... I got a dental apt. tomorrow.. and they are going to pull out about 8 teeth...see I got a text of my apt. time.." Patient is a 30 year old female who presents with above hx of dental pain. She has history of multiple visits for dental pain and facial pain complaints. Has multiple areas of dental decay and gingivitis. Patient in the past has been somewhat noncompliant in following up with dentist. Patient currently has an appointment tomorrow morning for extraction of approximately 8 teeth. Patient has exhibited somewhat narcotic seeking behaviors in the past. Patient does have past medical history PTSD, polysubstance abuse, tobacco use, anxiety, asthma, chronic pain, fibromyalgia, tobacco use. Patient denies any history of aspiration. No trismus. No recent trauma. No history of travel. No history of severe ill contacts. Patient reports she is currently on clindamycin for dental infection. Review of Systems: Review of Systems: Constitutional: Denies fever or chills Eyes: Denies change in visual acuity HENT: Denies nasal congestion or sore throat. Patient complains of dental pain Respiratory: Denies cough or shortness of breath Cardiovascular: Denies chest pain or edema GI: Denies abdominal pain, nausea, vomiting, bloody stools or diarrhea : Denies dysuria Musculoskeletal: Denies back pain or joint pain Integument: Denies rash Neurologic: Denies headache, focal weakness or sensory changes Endocrine: Denies polyuria or polydipsia Lymphatic: Denies swollen glands Psychiatric: Denies depression or anxiety Family History: Family History: Noncontributory to presentation Current Medications: Current Meds: See nursing for home meds Allergies: Allergies: Allergies Coded Allergies Type Severity Reaction Last Updated Verified dextromethorphan Allergy Severe 01/02/21 Yes prednisone Allergy Severe 01/02/21 Yes Penicillins Allergy Intermediate 01/02/21 Yes amoxicillin Allergy Intermediate 01/02/21 Yes codeine Allergy Intermediate 01/02/21 Yes ketorolac Allergy Intermediate 01/02/21 Yes morphine Allergy Intermediate 01/02/21 Yes naproxen Allergy Intermediate 01/02/21 Yes prednisolone Allergy Intermediate 01/02/21 Yes sulfamethoxazole Allergy Intermediate 01/02/21 Yes tramadol Allergy Intermediate 01/02/21 Yes trimethoprim Allergy Intermediate 01/02/21 Yes Physical Exam: PE: Constitutional: Reports moderate acute distress, non-toxic appearance. [] HENT: Normocephalic, atraumatic, bilateral external ears normal, oropharynx moist, no oral exudates, nose normal. Has multiple areas of dental pain and dental cavities and gingivitis Eyes: PERRLA, EOMI, conjunctiva normal, no discharge. [] Neck: Normal range of motion, no tenderness, supple, no stridor. [] Cardiovascular:Heart rate regular rhythm, no murmur [] Lungs & Thorax: Bilateral breath sounds equal apex with scattered wheezes auscultation [] Abdomen: Bowel sounds normal, soft, no tenderness, no masses, no pulsatile masses. Obese Skin: Warm, dry, no erythema, no rash. [] Back: No tenderness, no CVA tenderness. [] Extremities: No tenderness, no cyanosis, no clubbing, ROM intact, no edema. [] Neurologic: Alert and oriented X 3, normal motor function, normal sensory function, no focal deficits noted. [] Psychologic: Affect anxious, judgement normal, mood normal. [] Current Patient Data: Vital Signs: Vital Signs Date Time Temp Pulse Resp B/P (MAP) Pulse Ox O2 Delivery O2 Flow Rate FiO2 01/02/21 20:54 100.4 109 20 157/89 (111) 96 Room Air EKG: EKG: [] Radiology/Procedures: Radiology/Procedures: [] Heart Score: C/O Chest Pain: N/A Risk Factors: Risk Factors: DM, Current or recent (<one month) smoker, HTN, HLP, family history of CAD, obesity. Risk Scores: Score 0 - 3: 2.5% MACE over next 6 weeks - Discharge Home Score 4 - 6: 20.3% MACE over next 6 weeks - Admit for Clinical Observation Score 7 - 10: 72.7% MACE over next 6 weeks - Early Invasive Strategies Course & Med Decision Making: Course & Med Decision Making Pertinent Labs and Imaging studies reviewed. (See chart for details) Patient rinse mouth with Listerine 4 times a day. Patient take meds as directed. Patient keep dental appointment follow-up. Return if any concerns. Impression: 1. Acute on chronic dental pain 2. Narcotic seeking behaviors 3. Tobacco use [] Dragon Disclaimer: Dragon Disclaimer: This electronic medical record was generated, in whole or in part, using a voice recognition dictation system. Departure Departure: Referrals: PCP,NO (PCP) Michael Disclaimer This chart was dictated in whole or in part using Voice Recognition software in a busy, high-work load, and often noisy Emergency Department environment. It may contain unintended and wholly unrecognized errors or omissions. DUANE NICOLE MD Jan 02, 2021 22:34
[2021-01-02] MEDS ORDERED: HYDROcodon/IBUPROFEN 7.5/200MG 1 TAB TABLET PO ONE (22:45)
== END 2021-01-02 22:52 | disposition home or self-care (01) ==
LOC: ER 20:35
DX: K08.89 Other specified disorders of teeth and supporting structures (principal); G89.29 Other chronic pain; Z76.5 Malingerer [conscious simulation]; Z72.0 Tobacco use; J45.909 Unspecified asthma, uncomplicated; G43.909 Migraine, unspecified, not intractable, without status migrainosus; F43.10 Post-traumatic stress disorder, unspecified; Z88.0 Allergy status to penicillin; Z88.1 Allergy status to other antibiotic agents; Z88.2 Allergy status to sulfonamides; Z88.5 Allergy status to narcotic agent; Z88.6 Allergy status to analgesic agent; Z88.8 Allergy status to other drugs, medicaments and biological substances
CPT/HCPCS: 99283

== ENCOUNTER 2021-01-03 22:48 | Emergency (ER) | payer SELFPAY ==
[~2021-01-03] VITALS: Ht 160 cm; Wt 120.0 kg
--- NOTE | 2021-01-03 23:13 | PHYS DOC ---
Past History Past Medical History: Anxiety, Asthma, Fibromyalgia, Migraines, Other Additional Past Medical Histor: PTSD, DRUG SEEKING BEHAVIOR Past Surgical History: , Tubal ligation, Other Additional Past Surgical Histo: ORAL SURGERY(TOOTH EXTRACTION) Smoking: Cigarettes Alcohol Use: Occasionally Drug Use: None Adult General Chief Complaint Chief Complaint: DENTAL PROBLEM HPI HPI Patient is a 30-year-old female presenting for pain control. Was here yesterday evening with dental infection, followed up with dentist today and continues to take clindamycin. Was not prescribed any narcotic pain medication for pain control and reports taking ibuprofen 800 mg at home without relief prompting her to come to our facility as directed by her dentist for acute pain control. No fever, no purulent exudate or drainage, reports ongoing focal pain to upper left molar area and mild facial swelling over left maxillary sinus Review of Systems Review of Systems Fourteen body systems of review of systems have been reviewed. See HPI for pertinent positives and negative responses, other nash all other systems are negative, non-pertinent or non-contributory Allergies Allergies Allergies Coded Allergies Type Severity Reaction Last Updated Verified dextromethorphan Allergy Severe 01/02/21 Yes prednisone Allergy Severe 01/02/21 Yes Penicillins Allergy Intermediate 01/02/21 Yes amoxicillin Allergy Intermediate 01/02/21 Yes codeine Allergy Intermediate 01/02/21 Yes ketorolac Allergy Intermediate 01/02/21 Yes morphine Allergy Intermediate 01/02/21 Yes naproxen Allergy Intermediate 01/02/21 Yes prednisolone Allergy Intermediate 01/02/21 Yes sulfamethoxazole Allergy Intermediate 01/02/21 Yes tramadol Allergy Intermediate 01/02/21 Yes trimethoprim Allergy Intermediate 01/02/21 Yes Physical Exam Physical Exam General: Appears well, non toxic, and comfortable Skin: Warm, dry. Normal for ethnicity. Head: Atraumatic. EENT: PERRLA. Moist mucous membranes. Uvula midline. No trismus. Maintaining secretions. No phonation changes. Mild facial swelling noted to left maxillary area, no obvious periapical abscess but grossly poor dentition with numerous dental caries. Gingivitis noted to left upper portion of gum wall Neck: Trachea midline. Normal ROM. No stridor. Respiratory: Normal WOB. No tachypnea. Cardiovascular: Normal peripheral perfusion. Musculoskeletal: Normal ROM. Neuro: Alert and oriented x 4. MAEE. Lymph: No cervical LAD. Psych: Anxious affect and mood Current Patient Data Vital Signs Vital Signs Date Time Temp Pulse Resp B/P (MAP) Pulse Ox O2 Delivery O2 Flow Rate FiO2 01/03/21 22:54 98.3 107 24 157/89 (111) 95 Room Air EKG EKG [] Radiology/Procedures Radiology/Procedures [] Heart Score C/O Chest Pain: No Risk Factors: Risk Factors: DM, Current or recent (<one month) smoker, HTN, HLP, family history of CAD, obesity. Risk Scores: Risk Factors: DM, Current or recent (<one month) smoker, HTN, HLP, family history of CAD, obesity. Course & Med Decision Making Course & Med Decision Making Patient tachycardic and hypertensive likely from uncontrolled pain. History and physical exam consistent with dental infection that is currently being treated with p.o. clindamycin. [place] 10 administered while in ER with improvement in pain. I denied request for home prescription and discussed need to follow-up with a dentist regarding this. She has appointment with dentist in the morning and will discuss this further at that time Strict return precautions discussed with good understanding, all questions and concerns addressed prior to ER departure in improved condition Dragon Disclaimer Michael Disclaimer This electronic medical record was generated, in whole or in part, using a voice recognition dictation system. Departure Departure: Impression: Primary Impression: Dental infection Disposition: 01 DC HOME SELF CARE/HOMELESS Condition: STABLE Referrals: PCPANTONIETA (PCP) Additional Instructions: As discussed prior to ER departure, please follow-up with your dentist in the morning as previously scheduled for continuity of care. Please discuss need for outpatient prescription for pain medication as deemed necessary by them. If any concerning signs or symptoms present prior to outpatient follow-up please do not hesitate to come back for repeat evaluation. It was a pleasure to take care of you and I wish you the best going forward KIRSTEN GRANGER DO Jan 03, 2021 23:13
[2021-01-03] MEDS ORDERED: HYDROcodone/APAP 10/325 1 TAB TABLET PO ONE (23:15)
[2021-01-03 23:30] VITALS: BP 156/92
== END 2021-01-03 23:30 | disposition home or self-care (01) ==
LOC: ER 22:48
DX: K04.7 Periapical abscess without sinus (principal); K08.89 Other specified disorders of teeth and supporting structures; R60.0 Localized edema; F41.9 Anxiety disorder, unspecified; J45.909 Unspecified asthma, uncomplicated; M79.7 Fibromyalgia; G43.909 Migraine, unspecified, not intractable, without status migrainosus; Z98.51 Tubal ligation status; Z98.890 Other specified postprocedural states
CPT/HCPCS: 99283

== ENCOUNTER 2021-01-17 16:47 | Emergency (ER) | payer SELFPAY ==
[~2021-01-17] VITALS: Ht 160 cm; Wt 120.0 kg
[2021-01-17 17:02] VITALS: BP 156/92
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
[2021-01-17] MEDS ORDERED: oxyCODONE/APAP 5/325 1 TAB TABLET PO ONE (18:30)
== END 2021-01-17 18:34 | disposition home or self-care (01) ==
LOC: EEVIPCON 16:47 → ER 16:47
DX: T71.9XXA Asphyxiation due to unspecified cause, initial encounter (principal); M54.2 Cervicalgia; G43.909 Migraine, unspecified, not intractable, without status migrainosus; J45.909 Unspecified asthma, uncomplicated; F43.10 Post-traumatic stress disorder, unspecified; Z76.5 Malingerer [conscious simulation]; F17.210 Nicotine dependence, cigarettes, uncomplicated; Z88.0 Allergy status to penicillin; Z88.1 Allergy status to other antibiotic agents; Z88.2 Allergy status to sulfonamides; Z88.5 Allergy status to narcotic agent; Z88.6 Allergy status to analgesic agent
CPT/HCPCS: 70490; 99284-25

== ENCOUNTER 2021-01-18 00:06 | Emergency (ER) | payer SELFPAY ==
[~2021-01-18] VITALS: Ht 160 cm; Wt 120.0 kg
[2021-01-18 00:19] VITALS: BP 147/94
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
[2021-01-18] MEDS ORDERED: diazePAM 5 MG TABLET. PO ONE (01:15)
[2021-01-18] MEDS ORDERED: oxyCODONE/APAP 5/325 1 TAB TABLET PO ONE (01:15)
== END 2021-01-18 01:26 | disposition home or self-care (01) ==
LOC: ER 00:06
DX: M54.2 Cervicalgia (principal); M25.511 Pain in right shoulder; F41.9 Anxiety disorder, unspecified; J45.909 Unspecified asthma, uncomplicated; M79.7 Fibromyalgia; G43.909 Migraine, unspecified, not intractable, without status migrainosus; F17.210 Nicotine dependence, cigarettes, uncomplicated; F43.10 Post-traumatic stress disorder, unspecified; Z88.2 Allergy status to sulfonamides; Z88.1 Allergy status to other antibiotic agents; Z88.0 Allergy status to penicillin; Z88.8 Allergy status to other drugs, medicaments and biological substances
CPT/HCPCS: 99283

== ENCOUNTER 2021-01-20 14:57 | Emergency (ER) | payer SELFPAY ==
[~2021-01-20] VITALS: Ht 160 cm; Wt 120.0 kg
[2021-01-20] MEDS ORDERED: METHOCARBAMOL 500 MG TABLET PO STA (15:16)
[2021-01-20] MEDS ORDERED: oxyCODONE/APAP 5/325 1 TAB TABLET PO ONE (15:30)
[2021-01-20 15:31] VITALS: BP 148/102
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
[2021-01-20] MEDS ORDERED: METH-38 PO (15:57)
== END 2021-01-20 16:10 | disposition home or self-care (01) ==
LOC: ER 14:57
DX: M54.2 Cervicalgia (principal); G43.909 Migraine, unspecified, not intractable, without status migrainosus; J45.909 Unspecified asthma, uncomplicated; F43.10 Post-traumatic stress disorder, unspecified; Z76.5 Malingerer [conscious simulation]; F17.210 Nicotine dependence, cigarettes, uncomplicated; Z98.51 Tubal ligation status; Z88.0 Allergy status to penicillin; Z88.1 Allergy status to other antibiotic agents; Z88.2 Allergy status to sulfonamides; Z88.5 Allergy status to narcotic agent; Z88.6 Allergy status to analgesic agent; Z88.8 Allergy status to other drugs, medicaments and biological substances
CPT/HCPCS: 99283

== ENCOUNTER 2021-01-30 22:05 | Emergency (ER) | payer SELFPAY ==
[~2021-01-30] VITALS: Ht 160 cm; Wt 120.0 kg
--- NOTE | 2021-01-30 22:10 | PHYS DOC ---
Past History Past Medical History: Anxiety, Asthma, Fibromyalgia, Migraines, Other Additional Past Medical Histor: PTSD, DRUG SEEKING BEHAVIOR Past Surgical History: , Tubal ligation, Other Additional Past Surgical Histo: ORAL SURGERY(TOOTH EXTRACTION) Smoking: Cigarettes Alcohol Use: Occasionally Drug Use: None General Adult HPI: HPI: ".. I am having really bad trigeminal neuralgia here on the right.. I had a dental appointment but they did not want to do anything until I follow-up with neurology. At bedtime the pain is so bad and I does need something... I know you are not doing him any prescription for any medication... And so far nothing has helped with his pain... Lidocaine patches... Gabapentin, Neurontin, Depakote,,Voltran gel.. Nothing is ever helped... Patient is a 30 year old female who presents with above hx and complaints of trigeminal neuralgia. Patient states she has had current right-sided trigemin al neuralgia for the past 2 years with no improvement with multiple drug regimens. Patient states Percocet sometimes helps relieve pain. Patient does have multiple drug allergies. Currently following with neurology as well as dental. Patient denies any recent fever or chills. No recent travel. No severe ill contacts. No history of immunosuppression. Patient reports no recen t trauma. No trismus. Patient had multiple ED evaluations for her trigeminal neuralgia. Patient normally follows with a primary care but presents the ED for medical issues. Patient has past history of anxiety disorder, asthma, fibromyalgia, migraines,. Patient has exhibited behaviors suspect of drug- seeking. Patient has past surgical history of , tubal ligation, oral surgery. Patient does continue to smoke. Patient last seen emergency room on 01/20/2021 for similar type complaints. Review of Systems: Review of Systems: Constitutional: Denies fever or chills Eyes: Denies change in visual acuity HENT: Denies nasal congestion or sore throat. Complains of severe right-sided trigeminal neuralgia symptoms. Respiratory: Denies cough or shortness of breath Cardiovascular: Denies chest pain or edema GI: Denies abdominal pain, nausea, vomiting, bloody stools or diarrhea : Denies dysuria Musculoskeletal: Denies back pain or joint pain Integument: Denies rash Neurologic: Denies headache, focal weakness or sensory changes Endocrine: Denies polyuria or polydipsia Lymphatic: Denies swollen glands Psychiatric: Denies depression or anxiety Family History: Family History: Noncontributory to presentation Current Medications: Current Meds: See nursing for home meds Allergies: Allergies: Allergies Coded Allergies Type Severity Reaction Last Updated Verified dextromethorphan Allergy Severe 01/18/21 Yes prednisone Allergy Severe 01/18/21 Yes Penicillins Allergy Intermediate 01/18/21 Yes amoxicillin Allergy Intermediate 01/18/21 Yes codeine Allergy Intermediate 01/18/21 Yes morphine Allergy Intermediate 01/02/21 Yes naproxen Allergy Intermediate 01/02/21 Yes prednisolone Allergy Intermediate 01/02/21 Yes sulfamethoxazole Allergy Intermediate 01/02/21 Yes tramadol Allergy Intermediate 01/02/21 Yes trimethoprim Allergy Intermediate 01/02/21 Yes ketorolac Adverse Reaction Intermediate 01/18/21 Yes Physical Exam: PE: Constitutional: Reports acute distress, non-toxic appearance. [] HENT: Normocephalic, atraumatic, bilateral external ears normal, oropharynx moist, no oral exudates, nose normal. Pain along distribution of right-sided facial as well as trigeminal distribution. No rash.. Temporal arteries nontender. Does have areas of dental decay. Eyes: PERRLA, EOMI, conjunctiva normal, no discharge. [] Neck: Normal range of motion, no tenderness, supple, no stridor. [] Cardiovascular:Heart rate regular rhythm, no murmur [] Lungs & Thorax: Bilateral breath sounds equal apex with scattered wheezes on auscultation [] Abdomen: Bowel sounds normal, soft, no tenderness, no masses, no pulsatile mass es. Obese. Old surgery scars. Skin: Warm, dry, no erythema, no rash. [] Back: No tenderness, no CVA tenderness. [] Extremities: No tenderness, no cyanosis, no clubbing, ROM intact, no edema. [] Neurologic: Alert and oriented X 3, normal motor function, normal sensory function, no focal deficits noted. [] Dorsiflexed to the patella and brachial. Patient is ambulatory without problems. Psychologic: Affect anxious, judgement normal, mood normal. [] EKG: EKG: [] Radiology/Procedures: Radiology/Procedures: [] Heart Score: C/O Chest Pain: N/A Risk Factors: Risk Factors: DM, Current or recent (<one month) smoker, HTN, HLP, family history of CAD, obesity. Risk Scores: Score 0 - 3: 2.5% MACE over next 6 weeks - Discharge Home Score 4 - 6: 20.3% MACE over next 6 weeks - Admit for Clinical Observation Score 7 - 10: 72.7% MACE over next 6 weeks - Early Invasive Strategies Course & Med Decision Making: Course & Med Decision Making Pertinent Labs and Imaging studies reviewed. (See chart for details) Patient keep follows with neurology and dental. Patient take Tylenol and ibuprofen as needed for discomfort. Patient consider following with a pain clinic. May need some trigger point injections for block of trigeminal neuralgia. Must follow up. Impression: 1. Rt side trigeminal neuralgia 2. Dental pain [] Dragon Disclaimer: Dragon Disclaimer: This electronic medical record was generated, in whole or in part, using a voice recognition dictation system. Departure Departure: Referrals: PCP,NO (PCP) Michael Disclaimer This chart was dictated in whole or in part using Voice Recognition software in a busy, high-work load, and often noisy Emergency Department environment. It may contain unintended and wholly unrecognized errors or omissions. DUANE NICOLE MD Jan 30, 2021 22:10
[2021-01-30 22:29] VITALS: BP 143/99
[2021-01-30] MEDS ORDERED: oxyCODONE/APAP 5/325 1 TAB TABLET PO ONE (22:45)
== END 2021-01-30 22:53 | disposition home or self-care (01) ==
LOC: ER 22:05
DX: G50.0 Trigeminal neuralgia (principal); G43.909 Migraine, unspecified, not intractable, without status migrainosus; J45.909 Unspecified asthma, uncomplicated; Z76.5 Malingerer [conscious simulation]; F17.210 Nicotine dependence, cigarettes, uncomplicated; Z88.0 Allergy status to penicillin; Z88.1 Allergy status to other antibiotic agents; Z88.2 Allergy status to sulfonamides; Z88.5 Allergy status to narcotic agent; Z88.6 Allergy status to analgesic agent; Z88.8 Allergy status to other drugs, medicaments and biological substances
CPT/HCPCS: 99283

== ENCOUNTER 2021-02-18 17:15 | Emergency (ER) | payer SELFPAY ==
[~2021-02-18] VITALS: Ht 160 cm; Wt 120.0 kg
[2021-02-18 17:51] VITALS: BP 137/103
[2021-02-18 18:56] LABS: BACTERIA,URINE MOD /HPF (0-FEW); BILIRUBIN,URINE NEG (NEG); CLARITY,URINE HAZY; COLOR,URINE YELLOW; GLUCOSE,URINE NEG (NEG); NITRITE,URINE NEG (NEG); RBC,URINE 0 /HPF (0-2); SQUAMOUS EPITHELIAL CELL,UR MANY /LPF; UROBILINOGEN,URINE 0.2 mg/dL (0.2 mg/dL)
--- NOTE | 2021-02-18 18:59 | RAD ---
EXAMINATION: XR ABDOMEN COMP ACUTE CLINICAL HISTORY: Right lower quadrant pain EXAM DATE/TIME: 02/18/2021 6:38 PM COMPARISON: Chest radiograph 10/25/2020 [facility] 08/09/2020 FINDINGS: Lines, Tubes, and Devices: None. Cardiomediastinal Silhouette: Within normal limits. Lungs and Pleura: Mild patchy opacities in the bilateral mid to lower lung zones, similar to slightly less prominent compared to prior study. This is nonspecific and could be related to atelectasis, inf ection, or chronic changes. No pleural effusion or pneumothorax. Bones and Soft Tissues: No acute osseous abnormality. Abdomen: Nonspecific bowel gas pattern. No evidence of pneumoperitoneum. No pathologic abdominal calc ifications visualized. IMPRESSION: Nonspecific bowel gas pattern. Similar to slightly less prominent mild patchy opacities in the bilateral lungs as described. Electronically signed by: Andres Brand DO (02/18/2021 6:57 PM) [facility]
[2021-02-18] MEDS ORDERED: ONDANSETRON PF 4 MG/2 ML VIAL. IVP ONE ×2 (19:15→20:15)
[2021-02-18] MEDS ORDERED: IV NORMAL SALINE 1,000ML 1,000 ML IV ONE (19:15)
[2021-02-18 19:17] LABS: BASO # 0.2 x10^3/uL (0.0-0.2); BASO % 1 % (0-3); EOS # 0.2 x10^3/uL (0.0-0.7); EOS % 2 % (0-3); HEMATOCRIT 41.7 % (36.0-47.0); HEMOGLOBIN 13.9 g/dL (12.0-15.5); LYMPH # 3.1 x10^3/uL (1.0-4.8); LYMPH % 25 % (24-48); MEAN CORPUSCULAR HEMOGLOBIN 29 pg (25-35); MEAN CORPUSCULAR HGB CONC 33 g/dL (31-37); MEAN CORPUSCULAR VOLUME 86 fL (79-100); MONO # 0.6 x10^3/uL (0.0-1.1); MONO % 5 % (0-9); NEUT # 8.1 x10^3uL (1.8-7.7); NEUT % 66 % (31-73); PLATELET COUNT 311 x10^3/uL (140-400); RED BLOOD COUNT 4.88 x10^6/uL (3.50-5.40); RED CELL DISTRIBUTION WIDTH 15.3 % (11.5-14.5); WHITE BLOOD COUNT 12.2 x10^3/uL (4.0-11.0)
--- NOTE | 2021-02-18 19:18 | PHYS DOC ---
Past History Past Medical History: Other Additional Past Medical Histor: trigeminal nerve neuralgia, ovarian cysts (BRIDGETTE BROWNING APRN) Past Surgical History: Tubal ligation Additional Past Surgical Histo: ORAL SURGERY(TOOTH EXTRACTION) (BRIDGETTE BROWNING APRN) Smoking: Cigarettes Alcohol Use: None Drug Use: None (BRIDGETTE BROWNING APRN) Adult General Chief Complaint Chief Complaint: PELVIC PAIN HPI HPI Patient is a 30-year-old female presents to the emergency department complaining of pain to the right lower quadrant for the past 4 days. She states she has a history of ovarian cyst that has been 5 cm in the past however patient states "I still have my appendix it might be that to", patient reports pain starting 1/10 1-10 pain scale and steadily rising to a current 9/10 pain. Patient denies any vaginal discharge, denies vaginal lesions, denies STI concerns. Patient reports her LMP was on January 22 and lasted 5 days with normal duration of flow. Patient states she took 800 mg of Motrin at 5 PM tonight for her pain without relief, patient states she is allergic to all other NSAIDs and morphine. Patient denies any other physical complaints or physical concerns. (BRIDGETTE BROWNING APRN) Review of Systems Review of Systems 14 body systems of review of systems have been reviewed. See HPI for pertinent positives and negative responses, otherwise all other systems are negative, nonpertinent or noncontributory. (BRIDGETTE BROWNING APRN) Current Medications Current Medications Current Medications Medications (Trade) Dose Ordered Sig/Sondra Start Time Stop Time Status Last Admin Dose Admin Ondansetron HCl (Zofran) 4 mg 1X ONCE 02/18/21 19:15 02/18/21 19:16 UNV Sodium Chloride 1,000 ml @ 1,000 mls/hr 1X ONCE 02/18/21 19:15 02/18/21 20:14 UNV (BRIDGETTE BROWNING APRN) Allergies Allergies Allergies Coded Allergies Type Severity Reaction Last Updated Verified dextromethorphan Allergy Severe 01/18/21 Yes prednisone Allergy Severe 01/18/21 Yes Penicillins Allergy Intermediate 01/18/21 Yes amoxicillin Allergy Intermediate 01/18/21 Yes codeine Allergy Intermediate 01/18/21 Yes morphine Allergy Intermediate 01/02/21 Yes naproxen Allergy Intermediate 01/02/21 Yes prednisolone Allergy Intermediate 01/02/21 Yes sulfamethoxazole Allergy Intermediate 01/02/21 Yes tramadol Allergy Intermediate 01/02/21 Yes trimethoprim Allergy Intermediate 01/02/21 Yes ketorolac Adverse Reaction Intermediate 01/18/21 Yes (BRIDGETTE BROWNING APRN) Physical Exam Physical Exam Constitutional: Well developed, well nourished, no acute distress, non-toxic appearance. 30-year-old female in no apparent physical distress. HENT: Normocephalic, atraumatic, bilateral external ears normal, oropharynx moist, no oral exudates, nose normal. Eyes: PERRLA, EOMI, conjunctiva normal, no discharge. Neck: Normal range of motion, no tenderness, supple, no stridor. Cardiovascular:Heart rate regular rhythm, no murmur Lungs & Thorax: Bilateral breath sounds clear to auscultation Abdomen: Bowel sounds normal, soft, no tenderness, no masses, no pulsatile masses. Right lower quadrant pain to palpation, negative rebound tenderness, negative psoas sign, negative Lynn sign. No bruising or areas of ecchymosis noted to the abdomen. Skin: Warm, dry, no erythema, no rash. Back: No tenderness, no CVA tenderness. Extremities: No tenderness, no cyanosis, no clubbing, ROM intact, no edema. Neurologic: Alert and oriented X 3, normal motor function, normal sensory function, no focal deficits noted. Psychologic: Affect normal, judgement normal, mood normal. (BRIDGETTE BROWNING APRN) Current Patient Data Vital Signs Vital Signs Date Time Temp Pulse Resp B/P (MAP) Pulse Ox O2 Delivery O2 Flow Rate FiO2 02/18/21 17:51 98.3 113 18 137/103 (114) 97 Lab Results Laboratory Tests Test 02/18/21 17:25 02/18/21 18:08 Urine Collection Type Unknown Urine Color Yellow Urine Clarity Hazy Urine pH 5.5 Urine Specific [place] 1.025 Urine Protein Neg (NEG-TRACE) Urine Glucose (UA) Neg mg/dL (NEG) Urine Ketones (Stick) Neg mg/dL (NEG) Urine Blood Neg (NEG) Urine Nitrite Neg (NEG) Urine Bilirubin Neg (NEG) Urine Urobilinogen Dipstick 0.2 mg/dL (0.2 mg/dL) Urine Leukocyte Esterase Neg (NEG) Urine RBC 0 /HPF (0-2) Urine WBC 1-4 /HPF (0-4) Urine Squamous Epithelial Cells Many /LPF Urine Bacteria Mod /HPF (0-FEW) POC Urine HCG, Qualitative hcg negative (Negative) (BRIDGETTE BROWNING APRN) EKG EKG [] (BRIDGETTE BROWNING APRN) Radiology/Procedures Radiology/Procedures PATIENT: TOSHIA MORENO ACCOUNT: [id number] : 1990 LOCATION: ER AGE: 30 SEX: F EXAM STATUS: REG ER ORD. PHYSICIAN: BRIDGETTE BROWNING APRN REASON: RLQ pain PROCEDURE: ACUTE ABDOMEN SERIES EXAMINATION: XR ABDOMEN COMP ACUTE CLINICAL HISTORY: Right lower quadrant pain EXAM DATE/TIME: 02/18/2021 6:38 PM COMPARISON: Chest radiograph 10/25/2020 [facility] 08/09/2020 FINDINGS: Lines, Tubes, and Devices: None. Cardiomediastinal Silhouette: Within normal limits. Lungs and Pleura: Mild patchy opacities in the bilateral mid to lower lung zones, similar to slightly less prominent compared to prior study. This is nonspecific and could be related to atelectasis, infection, or chronic changes. No pleural effusion or pneumothorax. Bones and Soft Tissues: No acute osseous abnormality. Abdomen: Nonspecific bowel gas pattern. No evidence of pneumoperitoneum. No p athologic abdominal calcifications visualized. IMPRESSION: Nonspecific bowel gas pattern. Similar to slightly less prominent mild patchy opacities in the bilateral lungs as described. Electronically signed by: Andres Bledsoe DO (02/18/2021 6:57 PM) [facility] DICTATED AND SIGNED BY: ANDRES BLEDSOE DO DATE: 02/18/211851 CC: BRIDGETTE BROWNING APRN; NON,STAFF ~MTH0 0 PATIENT: TOSHIA MORENO ACCOUNT: [id number] : 1990 LOCATION: ER AGE: 30 SEX: F EXAM STATUS: REG ER ORD. PHYSICIAN: BRIDGETTE BROWNING APRN REASON: RIGHT LOWER QUADRANT PAIN.NON CONTRAST DUE TO ALLERGY PROCEDURE: CT ABDOMEN PELVIS WO CONTRAST Study: CT abdomen/pelvis without intravenous contrast Indication: Right lower quadrant pain. Comparison: None. Technique: Helical CT imaging performed of the abdomen and pelvis without the use of intravenous contrast. Sagittal and coronal reformats were obtained. One or more of the following individualized dose reduction techniques were utilized for this examination: 1. Automated exposure control 2. Adjustment of the mA and/or kV according to patient size 3. Use of iterative reconstruction technique. Findings: Inherently limited evaluation without intravenous contrast. No significant abnormality at the lower chest. Mild hepatic enlargement. Unremarkable gallbladder, biliary tree, pancreas and adrenal glands. Upper limits of normal size of the spleen. No nephrolithiasis or collecting system dilatation. Unremarkable urinary bladder. No uterine mass is apparent. Unremarkable left ovary. Right ovarian cystic focus measuring up to 5.1 cm. Mural fat deposition at the proximal colon often seen from a previous inflammatory process. Faint haziness of the fat interposed between the cecum and the previously described right ovarian cyst. The appendix is normal. Nonobst ructed small bowel. Unremarkable stomach. Nonaneurysmal aorta. No lymphadenopathy. No free fluid or pneumoperitoneum. Small fat-containing umbilical hernia. No acute or aggressive osseous process. Impression: Minimal haziness of the fat between the cecum and a 5 cm right ovarian cyst suggesting some edema. This is not related to the appendix as the appendix is well seen and is normal. There is some mural fat deposition within the proximal colon suggesting of a previous inflammatory process but there does not appear to be a localized active colitis. It is possible edema relates to the ovarian cyst. No free pelvic fluid to suggest torsion but pelvic sonography could be performed to fully exclude this pathology as deemed clinically necessary. Electronically signed by: TESS GREEN MD (02/18/2021 8:58 PM) [facility] DICTATED AND SIGNED BY: TESS GREEN MD DATE: 02/18/212014 CC: BRIDGETTE BROWNING APRN; NON,STAFF ~MTH0 0 (BRIDGETTE BROWNING APRN) Heart Score C/O Chest Pain: No Risk Factors: Risk Factors: DM, Current or recent (<one month) smoker, HTN, HLP, family history of CAD, obesity. Risk Scores: Risk Factors: DM, Current or recent (<one month) smoker, HTN, HLP, family history of CAD, obesity. (BRIDGETTE BROWNING APRN) Course & Med Decision Making Course & Med Decision Making Pertinent Labs and Imaging studies reviewed. (See chart for details) 22-year-old female, vital signs reviewed, presents emergency department with complaints of right lower quadrant pain for 4 days. Physical examination concerning for appendicitis versus other acute abdominal process. Patient expressing concerns for needing narcotic pain medications, stating that she is allergic to morphine and all NSAIDs. After extensive chart review, patient has been seen several times, concerning for drug-seeking behavior. Will order CT abdomen pelvis without contrast related to patient's allergy to iodine. CBC, BMP, will give 4 mg Zofran IV. 1 L normal saline. Patient initially refused CT abdomen pelvis, labs and treatment in the ED stating that if she does not get narcotic pain medicine first she will just leave. After discussion with patient, she decided to stay and have CT performed. Patient refused normal saline. CT abdomen pelvis concerning for 5.1 centimeters right ovarian cyst, discussed patient case with ED attending Dr. Moe who recommended sonogram study to evaluate flow to and from right ovary. Discussed findings with patient, patient initially refused sonogram of pelvis. Patient states she needs to have pain medication first. Patient states she is still nauseated. Ordered 4 mg Zofran, 50 mics of fentanyl. Patient agreed to stay for sonogram study. End of shift report given to Dr. Moe who has assumed patient care at this time. (BRIDGETTE BROWNING APRN) Dragon Disclaimer Dragon Disclaimer This electronic medical record was generated, in whole or in part, using a voice recognition dictation system. (BRIDGETTE BROWNING APRN) Departure Departure: Referrals: NON,STAFF (PCP) Attending Signature Attending Signature I have participated in the care of this patient and I have reviewed and agree with all pertinent clinical information above including history, exam, and recommendations. (DUANE MOE MD) BRIDGETTE BROWNING APRN February 18, 2021 19:18 DUANE MOE MD February 19, 2021 01:45
[2021-02-18 19:28] LABS: CALCIUM 9.1 mg/dL (8.5-10.1); CREATININE 0.9 mg/dL (0.6-1.0); GFR 74.6; POTASSIUM 4.1 mmol/L (3.5-5.1)
[2021-02-18] MEDS ORDERED: IOHEXOL 300 MG/ML 75 ML VIAL. IV ONE (19:30)
[2021-02-18 19:35] LABS: ALBUMIN 3.6 g/dL (3.4-5.0); ALBUMIN/GLOBULIN RATIO 0.8 (1.0-1.7); TOTAL BILIRUBIN 0.3 mg/dL (0.2-1.0)
--- NOTE | 2021-02-18 21:01 | RAD ---
Study: CT abdomen/pelvis without intravenous contrast Indication: Right lower quadrant pain. Comparison: None. Technique: Helical CT imaging performed of the abdomen and pelvis without the use of intravenous cont rast. Sagittal and coronal reformats were obtained. One or more of the following individualized dose reduction techniques were utilized for this examinat ion: 1. Automated exposure control 2. Adjustment of the mA and/or kV according to patient size 3. Use of iterative reconstruction technique. Findings: Inherently limited evaluation without intravenous contrast. No significant abnormality at the lower chest. Mild hepatic enlargement. Unremarkable gallbladder, biliary tree, pancreas and adrenal glands. Upper limits of normal size of the spleen. No nephrolithiasis or collecting system dilatation. Unremarkable urinary bladder. No uterine mass is apparent. Unremarkable left ovary. Right ovarian cystic focus measuring up to 5.1 cm. Mural fat deposition at the proximal colon often seen from a previous inflammatory process. Faint haz iness of the fat interposed between the cecum and the previously described right ovarian cyst. The ap pendix is normal. Nonobstructed small bowel. Unremarkable stomach. Nonaneurysmal aorta. No lymphadenopathy. No free fluid or pneumoperitoneum. Small fat-containing umbi lical hernia. No acute or aggressive osseous process. Impression: Minimal haziness of the fat between the cecum and a 5 cm right ovarian cyst suggesting some edema. Th is is not related to the appendix as the appendix is well seen and is normal. There is some mural fat deposition within the proximal colon suggesting of a previous inflammatory process but there does no t appear to be a localized active colitis. It is possible edema relates to the ovarian cyst. No free pelvic fluid to suggest torsion but pelvic sonography could be performed to fully exclude this pathol ogy as deemed clinically necessary. Electronically signed by: TESS GREEN MD (02/18/2021 8:58 PM) [facility]
== END 2021-02-18 21:32 | disposition left against medical advice (07) ==
LOC: ER 17:15
DX: R10.31 Right lower quadrant pain (principal); Z88.0 Allergy status to penicillin; Z88.6 Allergy status to analgesic agent; Z88.8 Allergy status to other drugs, medicaments and biological substances; Z88.2 Allergy status to sulfonamides; Z98.51 Tubal ligation status
CPT/HCPCS: 36415; 74022; 74176; 80053; 81001; 81025; 83690; 85025; 87077; 87086; 87186; 96374; 96375; 96376; 99285; J2405; J3010

== ENCOUNTER 2021-02-27 21:23 | Emergency (ER) | payer SELFPAY ==
[~2021-02-27] VITALS: Ht 160 cm; Wt 121.0 kg
[2021-02-27 21:23] VITALS: BP 152/96
--- NOTE | 2021-02-27 21:37 | PHYS DOC ---
Past History Past Medical History: Other Additional Past Medical Histor: trigeminal nerve neuralgia, ovarian cysts Past Surgical History: Tubal ligation Additional Past Surgical Histo: ORAL SURGERY(TOOTH EXTRACTION) Smoking: Cigarettes Alcohol Use: None Drug Use: None Adult General HPI HPI Patient is a 30-year-old female with multiple medical problems who presents with a chief complaint of concern for right-sided jaw clicking. States that she woke up this morning and heard some clicking in the right jaw, but it has resolved here in the emergency department but she was worried. States she has intermittent pain in the area, 5 out of 10, dull and aching nature. Denies any recent traumas, illnesses, fevers, dental pain or procedures, neck pain, chest pain, shortness of breath. States she sees her doctor later this week but wants some Percocet or hydrocodone because as the only thing it helps with her pain. States she had not tried anything else at home. States she is otherwise eating and drinking normally for her. Denies any pain or trouble swallowing. Review of Systems Review of Systems Review of systems otherwise unremarkable except noted in HPI Allergies Allergies Allergies Coded Allergies Type Severity Reaction Last Updated Verified dextromethorphan Allergy Severe 01/18/21 Yes prednisone Allergy Severe 01/18/21 Yes Penicillins Allergy Intermediate 01/18/21 Yes amoxicillin Allergy Intermediate 01/18/21 Yes codeine Allergy Intermediate 01/18/21 Yes morphine Allergy Intermediate 01/02/21 Yes naproxen Allergy Intermediate 01/02/21 Yes prednisolone Allergy Intermediate 01/02/21 Yes sulfamethoxazole Allergy Intermediate 01/02/21 Yes tramadol Allergy Intermediate 01/02/21 Yes trimethoprim Allergy Intermediate 01/02/21 Yes iodine Allergy Mild Hives 02/18/21 Yes ketorolac Adverse Reaction Intermediate 01/18/21 Yes Physical Exam Physical Exam Constitutional: Well developed, well nourished, no acute distress, non-toxic appearance. [] HENT: Normocephalic, atraumatic, bilateral external ears normal, oropharynx moist, jaw movement normal with no clicking noted. No oral exudates, nose normal. [] Eyes: conjunctiva normal, no discharge. [] Neck: Normal range of motion, no tenderness, supple, no stridor, no lymphadenopathy. [] Cardiovascular:Heart rate regular rhythm, no murmur [] Lungs & Thorax: Bilateral breath sounds clear to auscultation [] Neurologic: Alert and oriented X 3, normal motor function, normal sensory function, no focal deficits noted. [] Psychologic: Affect normal, judgement normal, mood normal. [] EKG EKG [] Radiology/Procedures Radiology/Procedures [] Heart Score C/O Chest Pain: No Risk Factors: Risk Factors: DM, Current or recent (<one month) smoker, HTN, HLP, family history of CAD, obesity. Risk Scores: Risk Factors: DM, Current or recent (<one month) smoker, HTN, HLP, family history of CAD, obesity. Course & Med Decision Making Course & Med Decision Making Patient is a 30-year-old female who presents with clicking in the right jaw intermittently Vital signs not concerning. Physical exam noted above. Patient given Tylenol, ibuprofen and ice pack. Advised to follow-up with primary care physician tomorrow to set up a follow-up appointment. Gave return precautions to the ED. Patient grateful, verbalized understanding and agreed with plan of discharge. [] Dragon Disclaimer Dragon Disclaimer This electronic medical record was generated, in whole or in part, using a voice recognition dictation system. Departure Departure: Impression: Primary Impression: Jaw pain Disposition: HOME / SELF CARE / HOMELESS Condition: GOOD Referrals: NON,STAFF (PCP) Patient Instructions: Jaw, Range of Motion Exercises, [id number] Additional Instructions: Please read all the attached information carefully. You can use Tylenol, ibuprofen and ice as needed at home as discussed. Please call your primary care physician first thing in the morning to update on ED visit and set up a follow- up as soon as you can. Please come back to the ED with new or concerning symptoms as discussed. OSCAR ROCHA MD February 27, 2021 21:37
[2021-02-27] MEDS ORDERED: IBUPROFEN 600 MG TABLET. PO ONE (21:45)
[2021-02-27] MEDS ORDERED: ACETAMINOPHEN 500 MG TABLET PO ONE (21:45)
== END 2021-02-27 21:40 | disposition home or self-care (01) ==
LOC: ER 21:23
DX: R68.84 Jaw pain (principal); F17.210 Nicotine dependence, cigarettes, uncomplicated; Z88.0 Allergy status to penicillin; Z88.1 Allergy status to other antibiotic agents; Z88.6 Allergy status to analgesic agent; Z88.8 Allergy status to other drugs, medicaments and biological substances; Z98.51 Tubal ligation status
CPT/HCPCS: 99282-25

== ENCOUNTER 2021-03-11 13:13 | Emergency (ER) | payer SELFPAY ==
[~2021-03-11] VITALS: Ht 160 cm; Wt 119.4 kg
[2021-03-11 13:13] VITALS: BP 136/88
[2021-03-11] MEDS ORDERED: IOHEXOL 300 MG/ML 75 ML VIAL. IV ONE (14:00)
[2021-03-11] MEDS ORDERED: diphenhydrAMINE 50 MG/ML VIAL ONE (14:10)
[2021-03-11] MEDS ORDERED: diphenhydrAMINE 50 MG/ML VIAL IVP ONE (14:15)
[2021-03-11] MEDS ORDERED: IPRATRPIUM/ALBUTEROL 0.5/2.5MG 3 ML NEBU. NEB ONE (14:15)
--- NOTE | 2021-03-11 14:36 | PHYS DOC ---
Past History Past Medical History: Asthma Additional Past Medical Histor: trigeminal nerve neuralgia, ovarian cysts Past Surgical History: Cholecystectomy, Tubal ligation Additional Past Surgical Histo: ORAL SURGERY(TOOTH EXTRACTION) Smoking: Cigarettes Alcohol Use: None Drug Use: None General Adult EDM: Chief Complaint: FACE PROBLEM HPI: HPI: 30-year-old female presents with right-sided facial swelling. The patient has a history of trigeminal neuralgia. She has had intermittent swelling in this area before. This episode is worse than previous. She has been to both her dentist and her doctor who are not certain the nature of the swelling. She is concerned it could be something more significant. She denies fever or chills. It is difficult for her to open her mouth. She denies any difficulty breathing or swallowing. Review of Systems: Review of Systems: Constitutional: Denies fever or chills Eyes: Denies change in visual acuity HENT: Right jaw swelling Respiratory: Denies cough or shortness of breath Cardiovascular: Denies chest pain or edema GI: Denies abdominal pain, nausea, vomiting, bloody stools or diarrhea : Denies dysuria Musculoskeletal: Denies back pain or joint pain Integument: Denies rash Neurologic: Denies headache, focal weakness or sensory changes Endocrine: Denies polyuria or polydipsia Lymphatic: Denies swollen glands Psychiatric: Denies depression or anxiety Current Medications: Current Meds: Current Medications Medications (Trade) Dose Ordered Sig/Sondra Start Time Stop Time Status Last Admin Dose Admin Albuterol/ Ipratropium (Duoneb) 3 ml 1X ONCE 03/11/21 14:15 03/11/21 14:16 DC 03/11/21 14:22 3 ML Diphenhydramine HCl (Benadryl) 50 mg STK-MED ONCE 03/11/21 14:10 03/11/21 14:10 DC Iohexol (Omnipaque 300 Mg/ml) 75 ml 1X ONCE 03/11/21 14:00 03/11/21 14:11 DC Allergies: Allergies: Allergies Coded Allergies Type Severity Reaction Last Updated Verified dextromethorphan Allergy Severe 01/18/21 Yes prednisone Allergy Severe 01/18/21 Yes Penicillins Allergy Intermediate 01/18/21 Yes amoxicillin Allergy Intermediate 01/18/21 Yes codeine Allergy Intermediate 01/18/21 Yes morphine Allergy Intermediate 01/02/21 Yes naproxen Allergy Intermediate 01/02/21 Yes prednisolone Allergy Intermediate 01/02/21 Yes sulfamethoxazole Allergy Intermediate 01/02/21 Yes tramadol Allergy Intermediate 01/02/21 Yes trimethoprim Allergy Intermediate 01/02/21 Yes iodine Allergy Mild Hives 02/18/21 Yes ketorolac Adverse Reaction Intermediate 01/18/21 Yes Physical Exam: PE: Constitutional: Well developed, well nourished, no acute distress, non-toxic appearance. [] HENT: Normocephalic, atraumatic, bilateral external ears normal, oropharynx moist, nose normal. Swelling of the right inferior cheek with firm area greater than 1 cm, no surrounding erythema or warmth. Tenderness to touch. [] Eyes: PERRLA, EOMI, conjunctiva normal, no discharge. [] Neck: Normal range of motion, no tenderness, supple, no stridor. [] Cardiovascular: Heart rate regular rhythm, no murmur [] Lungs & Thorax: Bilateral breath sounds clear to auscultation [] Abdomen: Bowel sounds normal, soft, no tenderness, no masses, no pulsatile masses. [] Skin: Warm, dry, no erythema, no rash. [] Back: No tenderness, no CVA tenderness. [] Extremities: No tenderness, no cyanosis, no clubbing, ROM intact, no edema. [] Neurologic: Alert and oriented X 3, normal motor function, normal sensory function, no focal deficits noted. [] Psychologic: Affect normal, judgement normal, mood normal. [] Current Patient Data: Vital Signs: Vital Signs Date Time Temp Pulse Resp B/P (MAP) Pulse Ox O2 Delivery O2 Flow Rate FiO2 03/11/21 13:13 98.1 115 16 136/88 (104) 100 Room Air EKG: EKG: [] Radiology/Procedures: Radiology/Procedures: [] Impressions: EXAM: Neck CT with intravenous contrast. HISTORY: Jaw mass. TECHNIQUE: Computed tomographic images of the neck were obtained following the administration of intravenous contrast. *One or more of the following individualized dose reduction techniques were utilized for this examination: 1. Automated exposure control. 2. Adjustment of the mA and/or kV according to patient size. 3. Use of iterative reconstruction technique. COMPARISON: 01/17/2021. FINDINGS: There has been mild interval asymmetric enlargement of the right submandibular gland with surrounding fatty stranding suggesting sialadenitis. There are are prominent submandibular and submental lymph nodes, the right of which are increased in size compared to the prior study. For reference purposes, there is a right submental lymph node measuring 1.8 cm compared to a prior measurement of 1.4 cm. The parotid glands are unremarkable. The visualized portions of the brain are unremarkable. The visualized portions the orbits are unremarkable. There is mild leftward nasal septal deviation. The ostiomeatal units are patent. The temporomandibular joints are intact. There are multiple missing and partially missing teeth and dental caries. There is periapical lucency involving the left third mandibular and maxillary molars. There is degenerative change involving the cervical and upper thoracic spine. There is no acute osseous finding. IMPRESSION: 1. Slight asymmetric enlargement of the right submandibular gland with surrounding fatty stranding suggesting sialoadenitis, new compared to the prior CT dated 01/17/2021. There are suspected associated reactive right submandibular and submental lymph nodes, increased compared to the prior CT. 2. Multiple missing and partially missing teeth and dental caries. There are periapical lucencies involving the left third mandibular and maxillary molars. Correlate with dental exam findings. Electronically signed by: Renetta Hameed MD (03/11/2021 3:11 PM) [id number] DICTATED AND SIGNED BY: RENETTA HAMEED MD DATE: 03/11/21 1500 CC: LUCAS MOSS DO; NON,STAFF ~MTH0 0 Heart Score: C/O Chest Pain: N/A Risk Factors: Risk Factors: DM, Current or recent (<one month) smoker, HTN, HLP, family history of CAD, obesity. Risk Scores: Score 0 - 3: 2.5% MACE over next 6 weeks - Discharge Home Score 4 - 6: 20.3% MACE over next 6 weeks - Admit for Clinical Observation Score 7 - 10: 72.7% MACE over next 6 weeks - Early Invasive Strategies Course & Med Decision Making: Course & Med Decision Making Pertinent Labs and Imaging studies reviewed. (See chart for details) The patient CT scan shows possible bacterial sialoadenitis. We will need to start this treatment with IV antibiotics. Labs are pending. Patient has a very mildly elevated white count. I will give her IV Rocephin and clindamycin. Patient is allergic to penicillins. I will discharge her on 7 days of clindamycin and ciprofloxacin. She is stable for discharge at this time. [] Michael Disclaimer: Dragzuleyma Disclaimer: This electronic medical record was generated, in whole or in part, using a voice recognition dictation system. Departure Departure: Impression: Primary Impression: Sialoadenitis of submandibular gland Disposition: HOME / SELF CARE / HOMELESS Condition: STABLE Referrals: NON,STAFF (PCP) Patient Instructions: Sialadenitis, Extended Version Scripts Ciprofloxacin Hcl (CIPROFLOXACIN HCL) 500 Mg Tablet 1 TAB PO BID for infection, #14 TAB Prov: LUCAS MOSS DO 03/11/21 Clindamycin Hcl (CLINDAMYCIN HCL) 150 Mg Capsule 450 MG PO Q8HRS for infection for 7 Days, #63 CAP Prov: LUCAS MOSS DO 03/11/21 LUCAS MOSS DO March 11, 2021 14:36
--- NOTE | 2021-03-11 15:14 | RAD ---
EXAM: Neck CT with intravenous contrast. HISTORY: Jaw mass. TECHNIQUE: Computed tomographic images of the neck were obtained following the administration of intr avenous contrast. *One or more of the following individualized dose reduction techniques were utilized for this examina tion: 1. Automated exposure control. 2. Adjustment of the mA and/or kV according to patient size. 3. Use of iterative reconstruction technique. COMPARISON: 01/17/2021. FINDINGS: There has been mild interval asymmetric enlargement of the right submandibular gland with s urrounding fatty stranding suggesting sialadenitis. There are are prominent submandibular and subment al lymph nodes, the right of which are increased in size compared to the prior study. For reference p urposes, there is a right submental lymph node measuring 1.8 cm compared to a prior measurement of 1. 4 cm. The parotid glands are unremarkable. The visualized portions of the brain are unremarkable. The visualized portions the orbits are unremarkable. There is mild leftward nasal septal deviation. The ostiomeatal units are patent. The temporomandibular joints are intact. There are multiple missing and partially missing teeth and dental caries. There is periapical lucency involving the left third florentino ibular and maxillary molars. There is degenerative change involving the cervical and upper thoracic s pine. There is no acute osseous finding. IMPRESSION: 1. Slight asymmetric enlargement of the right submandibular gland with surrounding fatty stranding lemos ggesting sialoadenitis, new compared to the prior CT dated 01/17/2021. There are suspected associated r eactive right submandibular and submental lymph nodes, increased compared to the prior CT. 2. Multiple missing and partially missing teeth and dental caries. There are periapical lucencies inv olving the left third mandibular and maxillary molars. Correlate with dental exam findings. Electronically signed by: Renetta Hameed MD (03/11/2021 3:11 PM) [id number]
[2021-03-11] MEDS ORDERED: HYDROmorphone PF 1 MG/ML DISP.SYRIN IVP ONE (15:45)
[2021-03-11] MEDS ORDERED: CLINDAMYCIN 600MG PREMIX 50 ML IV ONE (15:45)
[2021-03-11] MEDS ORDERED: ONDANSETRON PF 4 MG/2 ML VIAL. IVP ONE (15:45)
[2021-03-11 16:09] LABS: BASO # 0.1 x10^3/uL (0.0-0.2); BASO % 1 % (0-3); EOS # 0.1 x10^3/uL (0.0-0.7); EOS % 1 % (0-3); HEMATOCRIT 41.3 % (36.0-47.0); HEMOGLOBIN 13.8 g/dL (12.0-15.5); LYMPH # 2.3 x10^3/uL (1.0-4.8); LYMPH % 19 % (24-48); MEAN CORPUSCULAR HEMOGLOBIN 29 pg (25-35); MEAN CORPUSCULAR HGB CONC 33 g/dL (31-37); MEAN CORPUSCULAR VOLUME 86 fL (79-100); MONO # 0.5 x10^3/uL (0.0-1.1); MONO % 4 % (0-9); NEUT % 75 % (31-73); PLATELET COUNT 281 x10^3/uL (140-400); RED BLOOD COUNT 4.78 x10^6/uL (3.50-5.40); WHITE BLOOD COUNT 11.9 x10^3/uL (4.0-11.0)
[2021-03-11 16:11] LABS: CALCIUM 9.2 mg/dL (8.5-10.1); CREATININE 0.8 mg/dL (0.6-1.0); GFR 85.4; POTASSIUM 3.9 mmol/L (3.5-5.1)
[2021-03-11 16:16] LABS: ALBUMIN 3.5 g/dL (3.4-5.0); ALBUMIN/GLOBULIN RATIO 0.8 (1.0-1.7); TOTAL BILIRUBIN 0.4 mg/dL (0.2-1.0); TOTAL PROTEIN 7.8 g/dL (6.4-8.2)
[2021-03-11] MEDS ORDERED: CIPR500T2 PO (16:56)
[2021-03-11] MEDS ORDERED: CLIN150C15 PO (16:56)
[2021-03-11] MEDS ORDERED: cefTRIAXone SODIUM 1 GM VIAL ONE (17:00)
[2021-03-11] MEDS ORDERED: IV NORMAL SALINE 50ML 50 ML ONE (17:00)
== END 2021-03-11 18:26 | disposition home or self-care (01) ==
LOC: ER 13:13
DX: K11.20 Sialoadenitis, unspecified (principal); F17.210 Nicotine dependence, cigarettes, uncomplicated; Z88.0 Allergy status to penicillin; Z88.1 Allergy status to other antibiotic agents; Z88.6 Allergy status to analgesic agent; Z88.2 Allergy status to sulfonamides; Z88.8 Allergy status to other drugs, medicaments and biological substances; Z90.49 Acquired absence of other specified parts of digestive tract; Z98.51 Tubal ligation status
CPT/HCPCS: 36415; 70491; 80053; 85025; 94640; 96365; 96367; 96375; 99285; J0696; J1170; J1200; J2405; J3490; Q9967; 99284-25

== ENCOUNTER 2021-03-12 23:12 | Emergency (ER) | payer SELFPAY ==
[2021-03-11 13:13] VITALS: BP 136/88
[~2021-03-12 23:12] MED LIST changes: +CIPR500T2 PO
--- NOTE | 2021-03-13 01:02 | PHYS DOC ---
Past History Past Medical History: Asthma Additional Past Medical Histor: trigeminal nerve neuralgia, ovarian cysts Past Surgical History: Cholecystectomy, Tubal ligation Additional Past Surgical Histo: ORAL SURGERY(TOOTH EXTRACTION) Smoking: Cigarettes Alcohol Use: None Drug Use: None General Adult HPI: HPI: Patient is a 30 year old female who presents with above hx and complaints throat complaints. Reportedly same complaints as for prior ed evaluations. Patient last seen for right-sided facial swelling on 03/11/21. Patient diagnosis at that time was Sialoadenitis of submandibular gland. Pt apparently left waiting room before notification ED staff. Patient last seen smoking outside the emergency room reportedly. Patient could not be found in waiting room on several checks. LWBS. Review of Systems: Review of Systems: HENT: Complains of facial pain Family History: Family History: Left without being seen Current Medications: Current Meds: Left without being seen current meds not known Allergies: Allergies: Allergies Coded Allergies Type Severity Reaction Last Updated Verified dextromethorphan Allergy Severe 01/18/21 Yes prednisone Allergy Severe 01/18/21 Yes Penicillins Allergy Intermediate 01/18/21 Yes amoxicillin Allergy Intermediate 01/18/21 Yes codeine Allergy Intermediate 01/18/21 Yes morphine Allergy Intermediate 01/02/21 Yes naproxen Allergy Intermediate 01/02/21 Yes prednisolone Allergy Intermediate 01/02/21 Yes sulfamethoxazole Allergy Intermediate 01/02/21 Yes tramadol Allergy Intermediate 01/02/21 Yes trimethoprim Allergy Intermediate 01/02/21 Yes iodine Allergy Mild Hives 02/18/21 Yes ketorolac Adverse Reaction Intermediate 01/18/21 Yes Physical Exam: PE: No exam patient left without being seen EKG: EKG: [] Radiology/Procedures: Radiology/Procedures: [] Heart Score: C/O Chest Pain: N/A Risk Factors: Risk Factors: DM, Current or recent (<one month) smoker, HTN, HLP, family history of CAD, obesity. Risk Scores: Score 0 - 3: 2.5% MACE over next 6 weeks - Discharge Home Score 4 - 6: 20.3% MACE over next 6 weeks - Admit for Clinical Observation Score 7 - 10: 72.7% MACE over next 6 weeks - Early Invasive Strategies Course & Med Decision Making: Course & Med Decision Making Pertinent Labs and Imaging studies reviewed. (See chart for details) Several checks waiting room patient not to be found. Charted as left without being seen. Impression: 1. Hx. of trigeminal neuralgia 2. Hx. of Sialoadenitis [] Dragon Disclaimer: Dragon Disclaimer: This electronic medical record was generated, in whole or in part, using a voice recognition dictation system. Departure Departure: Referrals: NON,STAFF (PCP) Michael Disclaimer This chart was dictated in whole or in part using Voice Recognition software in a busy, high-work load, and often noisy Emergency Department environment. It may contain unintended and wholly unrecognized errors or omissions. DUANE NICOLE MD March 13, 2021 01:01
== END 2021-03-13 01:20 | disposition left against medical advice (07) ==
LOC: ER 23:12
DX: K11.20 Sialoadenitis, unspecified (principal); R22.0 Localized swelling, mass and lump, head; J45.909 Unspecified asthma, uncomplicated; F17.210 Nicotine dependence, cigarettes, uncomplicated; Z88.6 Allergy status to analgesic agent; Z88.2 Allergy status to sulfonamides; Z88.8 Allergy status to other drugs, medicaments and biological substances; Z90.49 Acquired absence of other specified parts of digestive tract; Z98.51 Tubal ligation status
CPT/HCPCS: 99281

== ENCOUNTER 2021-03-13 14:48 | Emergency (ER) | payer SELFPAY ==
[~2021-03-13] VITALS: Ht 160 cm; Wt 119.4 kg
[2021-03-13 15:00] VITALS: BP 157/96
[2021-03-13] MEDS: HYDROcodone/APAP 5/325MG 1 TAB TABLET PO ONE (15:32)
--- NOTE | 2021-03-13 15:32 | PHYS DOC ---
Past History Past Medical History: Asthma Additional Past Medical Histor: trigeminal nerve neuralgia, ovarian cysts (ALEX LEBRON APRN) Past Surgical History: Cholecystectomy, Tubal ligation Additional Past Surgical Histo: ORAL SURGERY(TOOTH EXTRACTION) (ALEX LEBRON APRN) Smoking: Cigarettes Alcohol Use: None Drug Use: None (ALEX LEBRON APRN) General Adult EDM: Chief Complaint: SORE THROAT HPI: HPI: Patient is a 30-year-old female presents with jaw pain. Patient was seen in the emergency room and placed on 2 antibiotics to treat a salivary gland infection. Patient is reporting that she is unable to open her mouth without pain. Patient been taking ibuprofen with little relief. Has history of asthma. Patient denies fevers. (ALEX LEBRON APRN) Review of Systems: Review of Systems: Constitutional: Denies fever or chills Eyes: Denies change in visual acuity HENT: Reports jaw pain Respiratory: Denies cough or shortness of breath Cardiovascular: Denies chest pain or edema GI: Denies abdominal pain, nausea, vomiting, bloody stools or diarrhea : Denies dysuria Musculoskeletal: Denies back pain or joint pain Integument: Denies rash Neurologic: Denies headache, focal weakness or sensory changes Endocrine: Denies polyuria or polydipsia Lymphatic: Denies swollen glands Psychiatric: Denies depression or anxiety (ALEX LEBRON APRN) Current Medications: Current Meds: Current Medications Medications (Trade) Dose Ordered Sig/Sondra Start Time Stop Time Status Last Admin Dose Admin Acetaminophen/ Hydrocodone Bitart (Lortab 5/325) 1 tab 1X ONCE 03/13/21 15:15 03/13/21 15:23 DC (ALEX LEBRON APRN) Allergies: Allergies: Allergies Coded Allergies Type Severity Reaction Last Updated Verified dextromethorphan Allergy Severe 01/18/21 Yes prednisone Allergy Severe 01/18/21 Yes Penicillins Allergy Intermediate 01/18/21 Yes amoxicillin Allergy Intermediate 01/18/21 Yes codeine Allergy Intermediate 01/18/21 Yes morphine Allergy Intermediate 01/02/21 Yes naproxen Allergy Intermediate 01/02/21 Yes prednisolone Allergy Intermediate 01/02/21 Yes sulfamethoxazole Allergy Intermediate 01/02/21 Yes tramadol Allergy Intermediate 01/02/21 Yes trimethoprim Allergy Intermediate 01/02/21 Yes iodine Allergy Mild Hives 02/18/21 Yes ketorolac Adverse Reaction Intermediate 01/18/21 Yes (ALEX LEBRON APRN) Physical Exam: PE: Constitutional: Well developed, well nourished, no acute distress, non-toxic appearance. [] HENT: Normocephalic, atraumatic, bilateral external ears normal, oropharynx moist, no oral exudates, nose normal. [] Eyes: PERRLA, EOMI, conjunctiva normal, no discharge. [] Neck: Normal range of motion, right-sided tenderness Cardiovascular:Heart rate regular rhythm, no murmur [] Lungs & Thorax: Bilateral breath sounds clear to auscultation [] Abdomen: Bowel sounds normal, soft, no tenderness, no masses, no pulsatile masses. [] Skin: Warm, dry, no erythema, no rash. [] Back: No tenderness, no CVA tenderness. [] Extremities: No tenderness, no cyanosis, no clubbing, ROM intact, no edema. [] Neurologic: Alert and oriented X 3, normal motor function, normal sensory function, no focal deficits noted. [] Psychologic: Affect normal, judgement normal, mood normal. [] (ALEX LEBRON APRN) Current Patient Data: Vital Signs: Vital Signs Date Time Temp Pulse Resp B/P (MAP) Pulse Ox O2 Delivery O2 Flow Rate FiO2 03/13/21 15:00 98.2 106 16 157/96 (116) 96 Room Air (ALEX LEBRON APRN) EKG: EKG: [] (ALEX LEBRON APRN) Radiology/Procedures: Radiology/Procedures: [] (ALEX LEBRON APRN) Heart Score: C/O Chest Pain: No Risk Factors: Risk Factors: DM, Current or recent (<one month) smoker, HTN, HLP, family history of CAD, obesity. Risk Scores: Score 0 - 3: 2.5% MACE over next 6 weeks - Discharge Home Score 4 - 6: 20.3% MACE over next 6 weeks - Admit for Clinical Observation Score 7 - 10: 72.7% MACE over next 6 weeks - Early Invasive Strategies (ALEX LEBRON APRN) Course & Med Decision Making: Course & Med Decision Making Pertinent Labs and Imaging studies reviewed. (See chart for details) []-year-old female presents with jaw pain and pain with opening her mouth. Patient was treated with 2 antibiotics after being seen in the emergency room a few days ago for a salivary gland infection. Patient states that she has been taking the medication for 2 days and reports that swelling has improved. Explained to patient that she will need to give it some time for the antibiotics to work. Patient given hydrocodone in the emergency room for pain. Instructed to take ibuprofen and Tylenol at home. Patient is managing her secretions and able to open mouth but states that that produces pain. Patient is wanting more pain medication. Patient with K tracts and been given 32 hydrocodone's since February 22. Denies fevers. Hemodynamically stable. (ALEX LEBRON APRN) Dragon Disclaimer: Dragon Disclaimer: This electronic medical record was generated, in whole or in part, using a voice recognition dictation system. (ALEX LEBRON APRN) Attending Co-Sign The patient was seen and interviewed as well as examined at the bedside. The chart was reviewed. The case was discussed. Agree with the plan of care. (LUCAS MOSS DO) Departure Departure: Impression: Primary Impression: Neck pain Disposition: HOME / SELF CARE / HOMELESS Condition: STABLE Referrals: NON,STAFF (PCP) Additional Instructions: Continue taking ibuprofen and Tylenol at home for discomfort. You will need to give the antibiotics a couple more days to start working. Return to emergency room for worsening symptoms or concerns. EMERGENCY DEPARTMENT GENERAL DISCHARGE INSTRUCTIONS Thank you for coming to [facility] (ED) today and trusting us with you care. We trust that you had a positivie experience in our Emergency Department. If you wish to speak to the department management, you may call the director at [phone]. YOUR FOLLOW UP INSTRUCTIONS ARE FOLLOWS: 1. Do you have a private Doctor? If you do not have a private doctor, please ask for a resource list of physicians or clinics that may be able to assist you with follow up care. 2. The Emergency Physician has interpreted your x-rays. The X-Ray specialist will also review them. If there is a change in the findings, you will be notified in 48 hours when at all possible. 3. A lab test or culture has been done, your results will be reviewed and you will be notified if you need a change in treatment. ADDITIONAL INSTRUCTIONS AND INFORMATION: 1. Your care today has been supervised by a physician who is specially trained in emergency care. Many problems require more than one evaluation for a complete diagnosis and treatment. We recommend that you schedule your follow up appointment as recommended to ensure complete treatment of you illness or injury. If you are unable to obtain follow up care and continue to have a problem, or if your condition worsens, we recommend that you return to the ED. 2. We are not able to safely determine your condition over the phone nor are we able to give sound medical advice over the phone. For these safety reasons, if you call for medical advice we will ask you to come to the ED for further evaluation. 3. If you have any questions regarding these discharge instructions please call the ED at [phone]. SAFETY INFORMATION: In the interest of safety, wellness, and injury prevention; we encourage you to wear your sealbelt, if you smoke; quite smoking, and we encourage family to use a protective helmet for bicycling and other sporting events that present an increased risk for head injury. IF YOUR SYMPTOMS WORSEN OR NEW SYMPTOMS DEVELOP, OR YOU HAVE CONCERNS ABOUT YOUR CONDITION; OR IF YOUR CONDITION WORSENS WHILE YOU ARE WAITING FOR YOUR FOLLOW UP APPOINTMENT; EITHER CONTACT YOUR PRIMARY CARE DOCTOR, THE PHYSICIAN WHOSE NAME AND NUMBER YOU WERE GIVEN, OR RETURN TO THE ED IMMEDIATELY. ALEX LEBRON APRN March 13, 2021 15:32 LUCAS MOSS DO Mar 15, 2021 18:35
== END 2021-03-13 15:36 | disposition home or self-care (01) ==
LOC: ER 14:48
DX: M54.2 Cervicalgia (principal); R68.84 Jaw pain; J45.909 Unspecified asthma, uncomplicated; F17.210 Nicotine dependence, cigarettes, uncomplicated; Z88.8 Allergy status to other drugs, medicaments and biological substances; Z88.0 Allergy status to penicillin; Z88.1 Allergy status to other antibiotic agents; Z88.5 Allergy status to narcotic agent; Z88.2 Allergy status to sulfonamides
CPT/HCPCS: 99283

== ENCOUNTER 2021-03-14 21:38 | Emergency (ER) | payer SELFPAY ==
[~2021-03-14] VITALS: Ht 160 cm; Wt 119.4 kg
--- NOTE | 2021-03-14 22:07 | PHYS DOC ---
Past History Past Medical History: Asthma, Other Additional Past Medical Histor: trigeminal nerve neuralgia, ovarian cysts Past Medical History Sialoadenitis of submadibular gland Suspect history of narcotic seeking behaviors Past Surgical History: Cholecystectomy, Tubal ligation Additional Past Surgical Histo: ORAL SURGERY(TOOTH EXTRACTION) Smoking: Cigarettes Alcohol Use: None Drug Use: None General Adult EDM: Chief Complaint: FACE PAIN HPI: HPI: ".. I hurting really bad tonight... my glands are swollen.. my facial pain... is so.bad.. I ve been taking my antibiotic...' Patient is a 30 year old female who presents with above hx and complaints of trigeminal neuralgia and Sialoadenitis. Patient has a history of right-sided face edema and trigeminal neuralgia. Patient has had intermittent edema of her face previously. Previously has been evaluated for her trigeminal neuralgia and Sialoadenitis. Patient currently on Cipro and clindamycin. Patient has been referred to ENT previously but has not completed follow-ups. Patient has had multiple ED visits for this problem. Patient has exhibited possible narcotic seeking behaviors. Patient has had previous oral surgery and tooth extractions for her right facial pain and dental infections. Patient has past medical history of asthma, ovarian cyst, bronchitis and obesity. Patient's had previous surgeries of cholecystectomy and tubal ligation and oral surgery. Has had somewhat noncompliant history for follow-ups at recommended clinics. Review of Systems: Review of Systems: Constitutional: Denies fever or chills Eyes: Denies change in visual acuity HENT: Complains of right facial pain and swelling Respiratory: Denies cough or shortness of breath Cardiovascular: Denies chest pain or edema GI: Denies abdominal pain, nausea, vomiting, bloody stools or diarrhea : Denies dysuria Musculoskeletal: Denies back pain or joint pain Integument: Denies rash Neurologic: Denies headache, focal weakness or sensory changes Endocrine: Denies polyuria or polydipsia Lymphatic: Denies swollen glands Psychiatric: Denies depression or anxiety Family History: Family History: Noncontributory to presentation Current Medications: Current Meds: See nursing for home meds Allergies: Allergies: Allergies Coded Allergies Type Severity Reaction Last Updated Verified dextromethorphan Allergy Severe 01/18/21 Yes prednisone Allergy Severe 01/18/21 Yes Penicillins Allergy Intermediate 01/18/21 Yes amoxicillin Allergy Intermediate 01/18/21 Yes codeine Allergy Intermediate 01/18/21 Yes morphine Allergy Intermediate 01/02/21 Yes naproxen Allergy Intermediate 01/02/21 Yes prednisolone Allergy Intermediate 01/02/21 Yes sulfamethoxazole Allergy Intermediate 01/02/21 Yes tramadol Allergy Intermediate 01/02/21 Yes trimethoprim Allergy Intermediate 01/02/21 Yes iodine Allergy Mild Hives 02/18/21 Yes ketorolac Adverse Reaction Intermediate 01/18/21 Yes Physical Exam: PE: Constitutional: Reports acute distress, non-toxic appearance. [] HENT: Normocephalic, atraumatic, bilateral external ears normal, oropharynx moist, no oral exudates, nose normal. Does have some right facial swelling. Pain over the rt. trigeminal nerve. Poor dentition. No temporal artery tenderness. Eyes: PERRLA, EOMI, conjunctiva normal, no discharge. [] Neck: Normal range of motion, no tenderness, supple, no stridor. [] Cardiovascular:Heart rate regular rhythm, no murmur [] Lungs & Thorax: Bilateral breath sounds equal apex with scattered wheezes on auscultation [] Abdomen: Bowel sounds normal, soft, no tenderness, no masses, no pulsatile masses. Obese. Old surgery scars. Skin: Warm, dry, no erythema, no rash. [] Back: No tenderness, no CVA tenderness. [] Extremities: No tenderness, no cyanosis, no clubbing, ROM intact, no edema. No cording. Neurologic: Alert and oriented X 3, normal motor function, normal sensory function, no focal deficits noted. [] Psychologic: Affect anxious, judgement normal, mood normal. [] Current Patient Data: Vital Signs: Vital Signs Date Time Temp Pulse Resp B/P (MAP) Pulse Ox O2 Delivery O2 Flow Rate FiO2 03/14/21 21:44 97.3 108 16 143/95 (111) 98 Room Air EKG: EKG: [] Radiology/Procedures: Radiology/Procedures: [] Heart Score: C/O Chest Pain: N/A Risk Factors: Risk Factors: DM, Current or recent (<one month) smoker, HTN, HLP, family history of CAD, obesity. Risk Scores: Score 0 - 3: 2.5% MACE over next 6 weeks - Discharge Home Score 4 - 6: 20.3% MACE over next 6 weeks - Admit for Clinical Observation Score 7 - 10: 72.7% MACE over next 6 weeks - Early Invasive Strategies Course & Med Decision Making: Course & Med Decision Making Pertinent Labs and Imaging studies reviewed. (See chart for details) Patient record reviewed from previous ED visit on 03-11. Reviewed previous CT of neck and face on 01/17/2021. Patient encouraged to take her antibiotics as directed. Patient encouraged to keep follow-up with ENT. Patient take Tylenol and ibuprofen for pain. Patient advised narcotic prescriptions must be supplied by her primary care. Patient advised must keep follow-up with oral surgery and dentist. Patient encouraged to stop smoking. Impression; 1. Right submandibular SIALOADENITIS 2. Right trigeminal neuralgia 3. Multiple dental caries 4. Exhibits possible drug-seeking behaviors [] Dragon Disclaimer: Dragon Disclaimer: This electronic medical record was generated, in whole or in part, using a voice recognition dictation system. Departure Departure: Referrals: NON,STAFF (PCP) DUANE NICOLE MD March 14, 2021 22:07
[2021-03-14 22:45] VITALS: BP 149/94
[2021-03-14] MEDS: oxyCODONE/APAP 5/325 1 TAB TABLET PO ONE (22:46)
== END 2021-03-14 22:47 | disposition home or self-care (01) ==
LOC: ER 21:38
DX: K11.20 Sialoadenitis, unspecified (principal); G50.0 Trigeminal neuralgia; K02.9 Dental caries, unspecified; J45.909 Unspecified asthma, uncomplicated; F17.210 Nicotine dependence, cigarettes, uncomplicated; Z88.0 Allergy status to penicillin; Z88.1 Allergy status to other antibiotic agents; Z88.5 Allergy status to narcotic agent; Z88.2 Allergy status to sulfonamides; Z88.8 Allergy status to other drugs, medicaments and biological substances; Z88.6 Allergy status to analgesic agent
CPT/HCPCS: 99283

== ENCOUNTER 2021-03-23 22:02 | Emergency (ER) | payer SELFPAY ==
[~2021-03-23] VITALS: Ht 160 cm; Wt 118.9 kg
[2021-03-23 22:15] VITALS: BP 145/96
--- NOTE | 2021-03-23 23:38 | RAD ---
XR KNEE _3 VIEWS_LT History: Reason: Left knee medial pain / Spl. Instructions: / History: Technique: 3 views left knee Comparison: None. Findings: Normal alignment. No fracture. No significant knee joint effusion. Impression: 1. No acute osseous abnormality. Electronically signed by: Dean Okeefe DO (03/23/2021 11:35 PM) [facility]
--- NOTE | 2021-03-24 00:03 | PHYS DOC ---
Past History Past Medical History: Anxiety, Asthma, Bipolar, Other Additional Past Medical Histor: trigeminal nerve neuralgia, ovarian cysts Past Surgical History: Cholecystectomy, Tubal ligation Additional Past Surgical Histo: ORAL SURGERY(TOOTH EXTRACTION) Smoking: Cigarettes Alcohol Use: None Drug Use: None General Adult EDM: Chief Complaint: KNEE INJURY HPI: HPI: 30-year-old female presents with left knee pain. It is mostly along the medial aspect of her knee. She has no particular injury. She has been doing more walking lately and the pain is just increased over the last 24 hours. She feels like she is limping a bit when she walks. It is most painful as she sits down in a chair and as she attempts to stand up. She denies fever or chills. She has no change in sensation. Review of Systems: Review of Systems: Constitutional: Denies fever or chills Eyes: Denies change in visual acuity HENT: Denies nasal congestion or sore throat Respiratory: Denies cough or shortness of breath Cardiovascular: Denies chest pain or edema GI: Denies abdominal pain, nausea, vomiting, bloody stools or diarrhea : Denies dysuria Musculoskeletal: Left knee pain Integument: Denies rash Neurologic: Denies headache, focal weakness or sensory changes Endocrine: Denies polyuria or polydipsia Lymphatic: Denies swollen glands Psychiatric: Denies depression or anxiety Allergies: Allergies: Allergies Coded Allergies Type Severity Reaction Last Updated Verified dextromethorphan Allergy Severe 03/23/21 Yes prednisone Allergy Severe 03/23/21 Yes Penicillins Allergy Intermediate 03/23/21 Yes amoxicillin Allergy Intermediate 03/23/21 Yes codeine Allergy Intermediate 03/23/21 Yes morphine Allergy Intermediate 03/23/21 Yes naproxen Allergy Intermediate 01/02/21 Yes prednisolone Allergy Intermediate 01/02/21 Yes sulfamethoxazole Allergy Intermediate 01/02/21 Yes tramadol Allergy Intermediate 01/02/21 Yes trimethoprim Allergy Intermediate 01/02/21 Yes iodine Allergy Mild Hives 02/18/21 Yes ketorolac Adverse Reaction Intermediate 01/18/21 Yes Physical Exam: PE: Constitutional: Well developed, well nourished, morbidly obese, no acute distress, non-toxic appearance. [] HENT: Normocephalic, atraumatic, bilateral external ears normal, oropharynx moist, no oral exudates, nose normal. [] Eyes: PERRLA, EOMI, conjunctiva normal, no discharge. [] Neck: Normal range of motion, no tenderness, supple, no stridor. [] Cardiovascular:Heart rate regular rhythm, no murmur [] Lungs & Thorax: Bilateral breath sounds clear to auscultation [] Abdomen: Bowel sounds normal, soft, no tenderness, no masses, no pulsatile masses. [] Skin: Warm, dry, no erythema, no rash. [] Back: No tenderness, no CVA tenderness. [] Extremities: Left knee with tenderness along the medial collateral ligament, ligaments all with solid end feel. No obvious deformity.[] Neurologic: Alert and oriented X 3, normal motor function, normal sensory function, no focal deficits noted. [] Psychologic: Affect normal, judgement normal, mood normal. [] Current Patient Data: Vital Signs: Vital Signs Date Time Temp Pulse Resp B/P (MAP) Pulse Ox O2 Delivery O2 Flow Rate FiO2 03/23/21 22:15 98.1 95 20 145/96 (112) 98 Room Air EKG: EKG: [] Radiology/Procedures: Radiology/Procedures: [] Impressions: XR KNEE _3 VIEWS_LT History: Reason: Left knee medial pain / Spl. Instructions: / History: Technique: 3 views left knee Comparison: None. Findings: Normal alignment. No fracture. No significant knee joint effusion. Impression: 1. No acute osseous abnormality. Electronically signed by: Arabella Benedict DO (03/23/2021 11:35 PM) [facility] DICTATED AND SIGNED BY: ARABELLA BENEDICT DO DATE: 03/23/21 2622 CC: LUCAS MOSS DO; NON,STAFF ~MTH0 0 Heart Score: C/O Chest Pain: N/A Risk Factors: Risk Factors: DM, Current or recent (<one month) smoker, HTN, HLP, family history of CAD, obesity. Risk Scores: Score 0 - 3: 2.5% MACE over next 6 weeks - Discharge Home Score 4 - 6: 20.3% MACE over next 6 weeks - Admit for Clinical Observation Score 7 - 10: 72.7% MACE over next 6 weeks - Early Invasive Strategies Course & Med Decision Making: Course & Med Decision Making Pertinent Labs and Imaging studies reviewed. (See chart for details) Based on my exam it appears the patient has a strain of the medial collateral ligament. I have advised ice, compression, ibuprofen. Patient states verbal understanding. She is stable for discharge at this time. [] Michael Disclaimer: Michael Disclaimer: This electronic medical record was generated, in whole or in part, using a voice recognition dictation system. Departure Departure: Impression: Primary Impression: Medial collateral ligament sprain of knee Qualified Codes: S83.412A - Sprain of medial collateral ligament of left knee, initial encounter Disposition: HOME / SELF CARE / HOMELESS Condition: STABLE Referrals: NON,STAFF (PCP) Patient Instructions: Medial Collateral Knee Ligament Sprain with Phase I Rehab -[facility] LUCAS MOSS DO Mar 24, 2021 00:03
== END 2021-03-24 00:10 | disposition home or self-care (01) ==
LOC: ER 22:02
DX: S83.412A Sprain of medial collateral ligament of left knee, initial encounter (principal); J45.909 Unspecified asthma, uncomplicated; F17.210 Nicotine dependence, cigarettes, uncomplicated; F31.9 Bipolar disorder, unspecified; Z88.8 Allergy status to other drugs, medicaments and biological substances; Z88.0 Allergy status to penicillin; Z88.5 Allergy status to narcotic agent; Z88.1 Allergy status to other antibiotic agents; X50.9XXA Other and unspecified overexertion or strenuous movements or postures, initial encounter; Y93.89 Activity, other specified; Y92.89 Other specified places as the place of occurrence of the external cause; Y99.8 Other external cause status
CPT/HCPCS: 73562; 99284

== ENCOUNTER 2021-06-18 21:09 | Emergency (ER) | payer SELFPAY ==
[~2021-06-18] VITALS: Ht 160 cm; Wt 120.0 kg
[~2021-06-18 21:09] MED LIST changes: -CLIN150C15 PO; +CLIN150C16 PO
[2021-06-18 21:23] VITALS: BP 160/87
[2021-06-18] MEDS ORDERED: diphenhydrAMINE HCL 25 MG CAPSULE PO ONE (22:00)
--- NOTE | 2021-06-18 22:03 | PHYS DOC ---
Past History Past Medical History: Anxiety, Asthma, Bipolar, Other Additional Past Medical Histor: trigeminal neuralgia, tmj Past Surgical History: , Tubal ligation Additional Past Surgical Histo: ORAL SURGERY(TOOTH EXTRACTION) Smoking: Cigarettes Alcohol Use: None Drug Use: None Adult General Chief Complaint Chief Complaint: FACE PROBLEM HPI HPI Patient is a 30-year-old female with multiple medical problems including trigeminal neuralgia who presents with trigeminal neuralgia breakthrough pain. States she is taking all of her medications including Lyrica, carbamazepine, and hydrocodone but is having some pain on the left side of her face, 5 out of 10, sharp and burning in nature. States that her doctor told her to go to this emergency department if she ever had breakthrough pain. States she does have an appointment next week for follow-up. Denies any recent traumas, travels, illne sses, fevers, pain or trouble swallowing, chest pain, shortness of breath, abdominal pain, nausea, vomiting, dysuria, hematuria or blood in the stool. Review of Systems Review of Systems Review of systems otherwise unremarkable except noted in HPI Allergies Allergies Allergies Coded Allergies Type Severity Reaction Last Updated Verified dextromethorphan Allergy Severe 03/23/21 Yes prednisone Allergy Severe 03/23/21 Yes Penicillins Allergy Intermediate 03/23/21 Yes amoxicillin Allergy Intermediate 03/23/21 Yes codeine Allergy Intermediate 03/23/21 Yes morphine Allergy Intermediate 03/23/21 Yes naproxen Allergy Intermediate 01/02/21 Yes prednisolone Allergy Intermediate 01/02/21 Yes sulfamethoxazole Allergy Intermediate 01/02/21 Yes tramadol Allergy Intermediate 01/02/21 Yes trimethoprim Allergy Intermediate 01/02/21 Yes iodine Allergy Mild Hives 02/18/21 Yes ketorolac Adverse Reaction Intermediate 01/18/21 Yes Physical Exam Physical Exam Constitutional: Well developed, well nourished, no acute distress, non-toxic appearance. [] HENT: Normocephalic, atraumatic, bilateral external ears normal, oropharynx moist, no oral exudates, nose normal. [] Eyes: PERRLA, EOMI, conjunctiva normal, no discharge. [] Neck: Normal range of motion, no tenderness, supple, no stridor. [] Cardiovascular:Heart rate regular rhythm, no murmur [] Lungs & Thorax: Bilateral breath sounds clear to auscultation [] Skin: Warm, dry, no erythema, no rash. [] Neurologic: Alert and oriented X 3, normal motor function, normal sensory function, able to sit, stand and walk without issue, no focal deficits noted. [] Psychologic: Affect normal, judgement normal, mood normal. [] Current Patient Data Vital Signs Vital Signs Date Time Temp Pulse Resp B/P (MAP) Pulse Ox O2 Delivery O2 Flow Rate FiO2 06/18/21 21:23 98.4 109 16 160/87 99 Room Air EKG EKG [] Radiology/Procedures Radiology/Procedures [] Heart Score C/O Chest Pain: No Risk Factors: Risk Factors: DM, Current or recent (<one month) smoker, HTN, HLP, family history of CAD, obesity. Risk Scores: Risk Factors: DM, Current or recent (<one month) smoker, HTN, HLP, family history of CAD, obesity. Course & Med Decision Making Course & Med Decision Making Patient is a 30-year-old female who presents with trigeminal neuralgia breakthrough pain Vital signs initially notable for sinus tachycardia. Physical exam noted above. Given oral pain medicine with adjuvant. Discussed all findings with patient. Advised to continue her baseline medications for trigeminal neuralgia. Advised to keep her appointment next week and also call her neurologist first thing Sunday morning to update on ED visit. Gave strict return precautions to the ED. Patient grateful, verbalized understanding and agreed with plan of discharge. [] Dragon Disclaimer Dragon Disclaimer This electronic medical record was generated, in whole or in part, using a voice recognition dictation system. Departure Departure: Impression: Primary Impression: Trigeminal neuralgia Disposition: HOME / SELF CARE / HOMELESS Condition: GOOD Referrals: NON,STAFF (PCP) STACY LOPEZ Patient Instructions: Trigeminal Neuralgia Additional Instructions: Thank you for coming into the emergency department tonight and allowing us to take care of you. Please read the attached information carefully to go back over what we discussed. Please continue take all your medications as prescribed. Please call your primary care physician Sunday to update on ED visit and set up a follow-up as soon as you can. Please also update your neurologist. Please come back to the ED with new or concerning symptoms as discussed. OSCAR ROCHA MD Jun 18, 2021 22:03
[2021-06-18] MEDS ORDERED: oxyCODONE/APAP 5/325 1 TAB TABLET PO ONE (22:15)
== END 2021-06-18 22:10 | disposition home or self-care (01) ==
LOC: ER 21:09
DX: G50.0 Trigeminal neuralgia (principal); J45.909 Unspecified asthma, uncomplicated; F17.210 Nicotine dependence, cigarettes, uncomplicated; Z88.0 Allergy status to penicillin; Z88.1 Allergy status to other antibiotic agents; Z88.5 Allergy status to narcotic agent; Z88.6 Allergy status to analgesic agent; Z98.51 Tubal ligation status
CPT/HCPCS: 96372; 99283; J3010; Q0163

== ENCOUNTER 2021-06-22 15:52 | Emergency (ER) | payer SELFPAY ==
[~2021-06-22] VITALS: Ht 160 cm; Wt 120.0 kg
[2021-06-22] MEDS ORDERED: CLIN300C9 PO (16:26)
--- NOTE | 2021-06-22 16:26 | PHYS DOC ---
Past History Past Medical History: Anxiety, Asthma, Bipolar, Other Additional Past Medical Histor: trigeminal neuralgia, tmj Past Surgical History: , Tubal ligation Additional Past Surgical Histo: ORAL SURGERY(TOOTH EXTRACTION) Smoking: Cigarettes Alcohol Use: None Drug Use: None Adult General Chief Complaint Chief Complaint: FACE PROBLEM HPI HPI Patient is a 30-year-old presenting for pain control. Patient has history of trigeminal neuralgia in addition to chronic poor dentition. Reports she is concerned about developing dental infection given numerous broken teeth and known dental caries. Also reports that her trigeminal neuralgia has been uncontrolled. She sees primary care provider in outpatient setting and is on extensive narcotic schedule in addition to other medications with outpatient neurology visit pending. No recent major change in baseline health, trauma, ingestion or other known exacerbating factor. Review of Systems Review of Systems Fourteen body systems of review of systems have been reviewed. See HPI for pertinent positives and negative responses, other nash all other systems are n egative, non-pertinent or non-contributory Allergies Allergies Allergies Coded Allergies Type Severity Reaction Last Updated Verified dextromethorphan Allergy Severe 03/23/21 Yes prednisone Allergy Severe 03/23/21 Yes Penicillins Allergy Intermediate 03/23/21 Yes amoxicillin Allergy Intermediate 03/23/21 Yes codeine Allergy Intermediate 03/23/21 Yes morphine Allergy Intermediate 03/23/21 Yes naproxen Allergy Intermediate 01/02/21 Yes prednisolone Allergy Intermediate 01/02/21 Yes sulfamethoxazole Allergy Intermediate 01/02/21 Yes tramadol Allergy Intermediate 01/02/21 Yes trimethoprim Allergy Intermediate 01/02/21 Yes iodine Allergy Mild Hives 02/18/21 Yes ketorolac Adverse Reaction Intermediate 01/18/21 Yes Physical Exam Physical Exam Constitutional: Well developed, well nourished, no acute distress, non-toxic appearance. HENT: Normocephalic, atraumatic, bilateral external ears normal, oropharynx moist, no oral exudates, nose normal. Grossly poor dental hygiene with numerous broken teeth in infected dental caries present at tooth #14 and 15 Eyes: PERRLA, EOMI, conjunctiva normal, no discharge. Neck: Normal range of motion, no tenderness, supple, no stridor. Cardiovascular: Heart rate regular, sinus rhythm, no murmurs rubs or gallops Lungs & Thorax: Bilateral breath sounds clear to auscultation Abdomen: Bowel sounds normal, soft, no tenderness, no masses, no pulsatile ma sses. Nonsurgical abdomen, no peritoneal signs Skin: Warm, dry, no erythema, no rash. Back: No tenderness, no CVA tenderness. Extremities: No tenderness, no cyanosis, no clubbing, ROM intact, no edema. Neurologic: Alert and oriented X 3, grossly normal motor & sensory function, no focal deficits noted. Psychologic: Anxious affect and mood Current Patient Data Vital Signs Vital Signs Date Time Temp Pulse Resp B/P (MAP) Pulse Ox O2 Delivery O2 Flow Rate FiO2 06/22/21 16:00 98.0 120 20 158/90 97 Room Air EKG EKG [] Radiology/Procedures Radiology/Procedures [] Heart Score C/O Chest Pain: No Risk Factors: Risk Factors: DM, Current or recent (<one month) smoker, HTN, HLP, family history of CAD, obesity. Risk Scores: Risk Factors: DM, Current or recent (<one month) smoker, HTN, HLP, family history of CAD, obesity. Course & Med Decision Making Course & Med Decision Making ABCs unremarkable HPI, physical exam nonconcerning for any emergent or surgical issues I disclosed and reviewed patient's narcotic prescription history that is concerning and advised I would not be prescribing any additional narcotics for discharge home. Joint decision made to administer Percocet 5 while in ER and start on clindamycin for dental infection with advice for close outpatient dental and neurology appointments Strict return precautions were discussed and verbally understood by patient, all questions and concerns addressed prior to ER departure [place]on Disclaimer [place] Disclaimer This electronic medical record was generated, in whole or in part, using a voice recognition dictation system. Departure Departure: Impression: Primary Impression: Dental infection Additional Impressions: Trigeminal neuralgia Chronic pain Disposition: HOME / SELF CARE / HOMELESS Condition: STABLE Referrals: NON,STAFF (PCP) Additional Instructions: You were seen for dental and uncontrolled chronic trigeminal neuralgia pain. As disclosed I do not feel comfortable prescribing any other advanced medication for your trigeminal neuralgia and otherwise uncontrolled chronic pain, you need to discuss this further with your outpatient primary care physician who keeps prescribing these medications and keep your currently set up outpatient follow- up with neurology. You have been prescribed clindamycin for dental infection and risks of C. difficile infections discussed, please take these as prescribed to completion while you contact a dentist for further care. There is no indication for incision and drainage as there is no obvious abscess. Unfortunately, your dental pain is not likely to improve without seeing a dentist for further evaluation and treatment of your poor dentition and dental caries. You should return to the ED if you develop worsening pain, fever > 101, swelling, redness, or any other new or concerning symptoms. Scripts Clindamycin Hcl (CLINDAMYCIN HCL) 300 Mg Capsule 2 CAP PO TID for dental infection for 7 Days, #42 CAP Prov: KIRSTEN GRANGER DO 06/22/21 Problem Qualifiers KIRSTEN GRANGER DO Jun 22, 2021 16:26
[2021-06-22] MEDS ORDERED: CLINDAMYCIN HCL 150 MG CAPSULE PO ONE (16:30)
[2021-06-22] MEDS ORDERED: oxyCODONE/APAP 5/325 1 TAB TABLET PO ONE (16:30)
== END 2021-06-22 16:42 | disposition home or self-care (01) ==
LOC: ER 15:52
DX: S02.5XXA Fracture of tooth (traumatic), initial encounter for closed fracture (principal); K04.7 Periapical abscess without sinus; G50.0 Trigeminal neuralgia; G89.29 Other chronic pain; K02.9 Dental caries, unspecified; J45.909 Unspecified asthma, uncomplicated; F31.9 Bipolar disorder, unspecified; F17.210 Nicotine dependence, cigarettes, uncomplicated; Z88.0 Allergy status to penicillin; Z88.1 Allergy status to other antibiotic agents; Z88.5 Allergy status to narcotic agent; Z88.2 Allergy status to sulfonamides; Z88.8 Allergy status to other drugs, medicaments and biological substances; X58.XXXA Exposure to other specified factors, initial encounter; Y93.89 Activity, other specified; Y92.89 Other specified places as the place of occurrence of the external cause; Y99.8 Other external cause status
CPT/HCPCS: 99283

== ENCOUNTER 2021-06-23 06:38 | Emergency (ER) | payer SELFPAY ==
[~2021-06-23] VITALS: Ht 160 cm; Wt 120.3 kg
[2021-06-23 06:55] VITALS: BP 153/96
--- NOTE | 2021-06-23 07:07 | PHYS DOC ---
Past History Past Medical History: Anxiety, Asthma, Bipolar, Other Additional Past Medical Histor: trigeminal neuralgia, tmj, PTSD Past Surgical History: , Tubal ligation Additional Past Surgical Histo: ORAL SURGERY(TOOTH EXTRACTION) Smoking: Cigarettes Alcohol Use: None Drug Use: None General Adult EDM: Chief Complaint: DENTAL PROBLEM HPI: HPI: Patient is a 30-year-old female coming in because she cannot get her antibiotics filled. Patient was seen and diagnosed with a dental infection yesterday and prescribed clindamycin. Patient states she has not gotten it filled because she cannot afford it until tomorrow when she gets paid. Patient has not gone to a dentist and states her primary care provider wants to "speak with her health team" about getting her dental care. No systemic complaints. Patient is unvaccinated for COVID-19. Review of Systems: Review of Systems: All other systems within normal limits except for as noted in the HPI Current Medications: Current Meds: Current Medications Medications (Trade) Dose Ordered Sig/Sondra Start Time Stop Time Status Last Admin Dose Admin Clindamycin HCl (Cleocin) 450 mg 1X ONCE 06/23/21 07:15 06/23/21 07:16 UNV Allergies: Allergies: Allergies Coded Allergies Type Severity Reaction Last Updated Verified dextromethorphan Allergy Severe 03/23/21 Yes prednisone Allergy Severe 03/23/21 Yes Penicillins Allergy Intermediate 03/23/21 Yes amoxicillin Allergy Intermediate 03/23/21 Yes codeine Allergy Intermediate 03/23/21 Yes morphine Allergy Intermediate 03/23/21 Yes naproxen Allergy Intermediate 01/02/21 Yes prednisolone Allergy Intermediate 01/02/21 Yes sulfamethoxazole Allergy Intermediate 01/02/21 Yes tramadol Allergy Intermediate 01/02/21 Yes trimethoprim Allergy Intermediate 01/02/21 Yes iodine Allergy Mild Hives 02/18/21 Yes ketorolac Adverse Reaction Intermediate 01/18/21 Yes Physical Exam: PE: Constitutional: Well developed, well nourished, no acute distress, non-toxic appearance. [] HENT: Normocephalic, atraumatic, bilateral external ears normal, nose normal. [] Eyes: PERRLA, conjunctiva normal, no discharge. [] Neck: No rigidity, supple, no stridor. [] Cardiovascular: Regular rate and rhythm, brisk cap refill [] Lungs & Thorax: Non labored symmetric respirations, no tachypnea or respiratory distress [] Abdomen: Soft, nondistended. Skin: Warm, dry, no erythema, no rash. [] Back: Unremarkable Extremities: No deformities, range of motion grossly intact, no lower extremity edema [] Neurologic: Alert and oriented X 3, no focal deficits noted. [] Psychologic: Affect normal, judgement normal, mood normal. [] Current Patient Data: Vital Signs: Vital Signs Date Time Temp Pulse Resp B/P (MAP) Pulse Ox O2 Delivery O2 Flow Rate FiO2 06/23/21 06:55 98.6 107 20 153/96 96 Room Air EKG: EKG: [] Radiology/Procedures: Radiology/Procedures: [] Heart Score: C/O Chest Pain: No Risk Factors: Risk Factors: DM, Current or recent (<one month) smoker, HTN, HLP, family history of CAD, obesity. Risk Scores: Score 0 - 3: 2.5% MACE over next 6 weeks - Discharge Home Score 4 - 6: 20.3% MACE over next 6 weeks - Admit for Clinical Observation Score 7 - 10: 72.7% MACE over next 6 weeks - Early Invasive Strategies Course & Med Decision Making: Course & Med Decision Making Good Rx prescription costs less than $12. Patient stating that she cannot pay the money right now and has no money. Will give 1 dose here and instructed to follow-up with her primary care. Michael Disclaimer: Micahel Disclaimer: This electronic medical record was generated, in whole or in part, using a voice recognition dictation system. Departure Departure: Impression: Primary Impression: Dental caries Disposition: HOME / SELF CARE / HOMELESS Condition: STABLE Referrals: NON,STAFF (PCP) Patient Instructions: Dental Caries IVANA JOSEPH MD Jun 23, 2021 07:07
[2021-06-23] MEDS ORDERED: CLINDAMYCIN HCL 150 MG CAPSULE PO ONE (07:30)
== END 2021-06-23 07:18 | disposition home or self-care (01) ==
LOC: ER 06:38
DX: K02.9 Dental caries, unspecified (principal); J45.909 Unspecified asthma, uncomplicated; F31.9 Bipolar disorder, unspecified; F17.210 Nicotine dependence, cigarettes, uncomplicated; F41.9 Anxiety disorder, unspecified; Z88.0 Allergy status to penicillin; Z88.8 Allergy status to other drugs, medicaments and biological substances; Z88.1 Allergy status to other antibiotic agents; Z88.5 Allergy status to narcotic agent; Z88.2 Allergy status to sulfonamides
CPT/HCPCS: 99283

== ENCOUNTER 2021-08-12 21:02 | Emergency (ER) | payer SELFPAY ==
[~2021-08-12] VITALS: Ht 160 cm; Wt 121.3 kg
[~2021-08-12 21:02] MED LIST changes: +CLIN-95 PO; -CLIN300C9 PO
--- NOTE | 2021-08-12 21:40 | PHYS DOC ---
Past History Past Medical History: Anxiety, Asthma, Bipolar, Other Additional Past Medical Histor: trigeminal neuralgia, tmj, PTSD Past Surgical History: , Tubal ligation, Other Additional Past Surgical Histo: ORAL SURGERY(TOOTH EXTRACTION) Smoking: Cigarettes Alcohol Use: None Drug Use: None General Adult EDM: Chief Complaint: ABDOMINAL PAIN HPI: HPI: Patient is a 30-year-old female coming in for right lower abdominal pain that radiates to her back for 1 week. Patient states the pain has been gradual in on set and is constantly getting worse. Worse with urinating, movement, and palpation. Patient denies any heavy lifting or falls. Patient denies any vaginal bleeding or discharge, denies any hematuria dysuria. Denies any personal history of kidney stones but says she has significant family history of kidney stones. Denies any nausea or vomiting, diarrhea or constipation. Patient denies any blood in her urine, dysuria, or vaginal/pelvic pain. Review of Systems: Review of Systems: All other systems within normal limits except for as noted in the HPI Allergies: Allergies: Allergies Coded Allergies Type Severity Reaction Last Updated Verified dextromethorphan Allergy Severe 03/23/21 Yes prednisone Allergy Severe 03/23/21 Yes Penicillins Allergy Intermediate 03/23/21 Yes amoxicillin Allergy Intermediate 03/23/21 Yes codeine Allergy Intermediate 03/23/21 Yes morphine Allergy Intermediate 03/23/21 Yes naproxen Allergy Intermediate 01/02/21 Yes prednisolone Allergy Intermediate 01/02/21 Yes sulfamethoxazole Allergy Intermediate 01/02/21 Yes tramadol Allergy Intermediate 01/02/21 Yes trimethoprim Allergy Intermediate 01/02/21 Yes iodine Allergy Mild Hives 02/18/21 Yes ketorolac Adverse Reaction Intermediate 01/18/21 Yes Physical Exam: PE: Constitutional: Well developed, well nourished, no acute distress, non-toxic appearance. [] HENT: Normocephalic, atraumatic, bilateral external ears normal, nose normal. [] Eyes: PERRLA, conjunctiva normal, no discharge. [] Neck: No rigidity, supple, no stridor. [] Cardiovascular: Regular rate and rhythm, brisk cap refill [] Lungs & Thorax: Non labored symmetric respirations, no tachypnea or respiratory distress [] Abdomen: Soft, nondistended, right lower quadrant tender palpation. Skin: Warm, dry, no erythema, no rash. [] Back: Unremarkable Extremities: No deformities, range of motion grossly intact, no lower extremity edema [] Neurologic: Alert and oriented X 3, no focal deficits noted. [] Psychologic: Affect normal, judgement normal, mood normal. [] Current Patient Data: Vital Signs: Vital Signs Date Time Temp Pulse Resp B/P (MAP) Pulse Ox O2 Delivery O2 Flow Rate FiO2 08/12/21 21:13 98.5 129 18 158/98 (118) 96 Room Air EKG: EKG: [] Radiology/Procedures: Radiology/Procedures: [address] [address] IMAGING REPORT Signed PATIENT: TOSHIA MORENO ACCOUNT: [id number] : 1990 LOCATION: ER AGE: 30 SEX: F EXAM STATUS: REG ER ORD. PHYSICIAN: IVANA JOSEPH MD REASON: OMNI 300,75ML IV.RLQ pain PROCEDURE: CT ABD PELV W/ IV CONTRST ONLY CT ABDOMEN+PELVIS W History: RLQ pain Comparison: None. Technique: After administration of intravenous contrast, helical CT of the abdomen and pelvis was performed from the lung bases through the ischial tuberosities. Coronal and sagittal reconstructions were obtained. 75 mL of Omnipaque 300 were used. One or more of the following dose reduction techniques were utilized: Automated exposure control (AEC), Adjustment of mA and/or kV according to patient size, Use of iterative reconstruction technique such as ASiR, CT scan done according to ALARA and image gently/image wisely Abdomen Findings: The visualized lung bases are clear. Liver measures 21 cm craniocaudad. The gallbladder, pancreas, spleen, and bilateral adrenal glands are normal. Symmetric renal enhancement. There is no focal renal mass. There is no hydronephrosis. The visualized loops of small bowel are normal. Normal caliber large bowel. Proximal colon submucosal fat deposition again noted. There is no evidence of bowel obstruction. Appendix is normal. There is no free fluid. There is no mesenteric or retroperitoneal adenopathy. The abdominal aorta is normal in caliber. Pelvis Findings: Urinary bladder is normal. Uterus is present. Bilateral adnexal cysts, likely physiologic. No pelvic free fluid. There is no pelvic or inguinal adenopathy. There is no acute bony abnormality. Transitional lumbosacral anatomy. Small fat- containing umbilical hernia. IMPRESSION: No acute findings. Normal appendix. Electronically signed by: Marquita Fiore MD (08/12/2021 11:01 PM) [facility] DICTATED AND SIGNED BY: MARQUITA FIORE MD DATE: 08/12/21 347 CC: IVANA JOSEPH MD; NON,STAFF ~MTH0 0 [] Heart Score: C/O Chest Pain: No Risk Factors: Risk Factors: DM, Current or recent (<one month) smoker, HTN, HLP, family history of CAD, obesity. Risk Scores: Score 0 - 3: 2.5% MACE over next 6 weeks - Discharge Home Score 4 - 6: 20.3% MACE over next 6 weeks - Admit for Clinical Observation Score 7 - 10: 72.7% MACE over next 6 weeks - Early Invasive Strategies Course & Med Decision Making: Course & Med Decision Making Pertinent Labs and Imaging studies reviewed. (See chart for details) Patient has an ovarian cyst, unlikely torsion due to history of BTL but cyst is less than 4 cm so we will hold on ultrasound. Discussed follow-up with gynecology for recurrent ovarian cyst. 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 [] Michael Disclaimer: Michael Disclaimer: This electronic medical record was generated, in whole or in part, using a voice recognition dictation system. Departure Departure: Impression: Primary Impression: Ovarian cyst Disposition: HOME / SELF CARE / HOMELESS Condition: STABLE Referrals: NON,STAFF (PCP) Patient Instructions: Ovarian Cyst Scripts Hydrocodone/Acetaminophen (Hydrocodone-Acetamin 7.5-325) 1 Each Tablet 1 EACH PO PRN Q6-8HRS PRN for PAIN for 3 Days, #15 TAB Prov: IVANA JOSEPH MD 08/12/21 IVANA JOSEPH MD Aug 12, 2021 21:40
[2021-08-12] MEDS ORDERED: diphenhydrAMINE 50 MG/ML VIAL IVP ONE (22:00)
[2021-08-12] MEDS ORDERED: IOHEXOL 300 MG/ML 75 ML VIAL. IV ONE (22:00)
[2021-08-12 22:21] LABS: BASO # 0.1 x10^3/uL (0.0-0.2); BASO % 1 % (0-3); EOS # 0.1 x10^3/uL (0.0-0.7); EOS % 1 % (0-3); HEMATOCRIT 40.3 % (36.0-47.0); HEMOGLOBIN 13.4 g/dL (12.0-15.5); LYMPH # 2.8 x10^3/uL (1.0-4.8); LYMPH % 24 % (24-48); MEAN CORPUSCULAR HEMOGLOBIN 29 pg (25-35); MEAN CORPUSCULAR HGB CONC 33 g/dL (31-37); MEAN CORPUSCULAR VOLUME 86 fL (79-100); MONO # 0.4 x10^3/uL (0.0-1.1); MONO % 4 % (0-9); NEUT % 70 % (31-73); PLATELET COUNT 271 x10^3/uL (140-400); RED BLOOD COUNT 4.72 x10^6/uL (3.50-5.40); RED CELL DISTRIBUTION WIDTH 15.8 % (11.5-14.5); WHITE BLOOD COUNT 11.4 x10^3/uL (4.0-11.0)
[2021-08-12 22:30] LABS: BILIRUBIN,URINE NEG (NEG); CLARITY,URINE CLEAR; COLOR,URINE YELLOW; GLUCOSE,URINE NEG (NEG); NITRITE,URINE NEG (NEG); UROBILINOGEN,URINE 0.2 mg/dL (0.2 mg/dL)
[2021-08-12 22:31] LABS: BACTERIA,URINE 0 /HPF (0-FEW); RBC,URINE 0 /HPF (0-2); SQUAMOUS EPITHELIAL CELL,UR OCC /LPF; WBC,URINE 0 /HPF (0-4)
[2021-08-12 22:36] LABS: CALCIUM 9.1 mg/dL (8.5-10.1); CREATININE 0.8 mg/dL (0.6-1.0); GFR 85.4; POTASSIUM 3.4 mmol/L (3.5-5.1)
[2021-08-12 22:41] LABS: ALBUMIN 3.2 g/dL (3.4-5.0); ALBUMIN/GLOBULIN RATIO 0.8 (1.0-1.7); TOTAL BILIRUBIN 0.2 mg/dL (0.2-1.0); TOTAL PROTEIN 7.4 g/dL (6.4-8.2)
[2021-08-12 23:00] VITALS: BP 133/74
--- NOTE | 2021-08-12 23:04 | RAD ---
CT ABDOMEN+PELVIS W History: RLQ pain Comparison: None. Technique: After administration of intravenous contrast, helical CT of the abdomen and pelvis was per formed from the lung bases through the ischial tuberosities. Coronal and sagittal reconstructions wer e obtained. 75 mL of Omnipaque 300 were used. One or more of the following dose reduction techniques were utilized: Automated exposure control (AEC), Adjustment of mA and/or kV according to patient size , Use of iterative reconstruction technique such as ASiR, CT scan done according to ALARA and image g ently/image wisely Abdomen Findings: The visualized lung bases are clear. Liver measures 21 cm craniocaudad. The gallbladder, pancreas, spleen, and bilateral adrenal glands ar e normal. Symmetric renal enhancement. There is no focal renal mass. There is no hydronephrosis. The visualized loops of small bowel are normal. Normal caliber large bowel. Proximal colon submucosal fat deposition again noted. There is no evidence of bowel obstruction. Appendix is normal. There is no free fluid. There is no mesenteric or retroperitoneal adenopathy. The abdominal aorta is normal in caliber. Pelvis Findings: Urinary bladder is normal. Uterus is present. Bilateral adnexal cysts, likely physiologic. No pelvic free fluid. There is no pelvic or inguinal adenopathy. There is no acute bony abnormality. Transitional lumbosacral anatomy. Small fat-containing umbilical hernia. IMPRESSION: No acute findings. Normal appendix. Electronically signed by: Will Herman MD (08/12/2021 11:01 PM) [facility]
[2021-08-12] MEDS ORDERED: HYDR-2763 PO (23:20)
[2021-08-12] MEDS ORDERED: HYDROcodone/APAP 7.5/325MG 1 TAB TABLET PO ONE (23:30)
[2021-08-13] MEDS ORDERED: HYDR-2763 PO (08:38)
== END 2021-08-12 23:32 | disposition home or self-care (01) ==
LOC: ER 21:02
DX: N83.201 Unspecified ovarian cyst, right side (principal); F17.210 Nicotine dependence, cigarettes, uncomplicated; J45.909 Unspecified asthma, uncomplicated; Z88.8 Allergy status to other drugs, medicaments and biological substances; Z88.0 Allergy status to penicillin; Z88.1 Allergy status to other antibiotic agents; Z88.5 Allergy status to narcotic agent; Z88.2 Allergy status to sulfonamides; Z98.51 Tubal ligation status
CPT/HCPCS: 36415; 74177; 80053; 81001; 81025; 83690; 85025; 96374; 96375; 96376; 99285; J1200; J3010; Q9967

== ENCOUNTER 2021-08-31 14:09 | Emergency (ER) | payer SELFPAY ==
[~2021-08-31] VITALS: Ht 160 cm; Wt 121.3 kg
[~2021-08-31 14:09] MED LIST changes: +HYDR-2763 PO
[2021-08-31 14:13] VITALS: BP 147/100
[2021-08-31] MEDS ORDERED: HYDR-2155 PO (14:40)
[2021-08-31] MEDS ORDERED: CLIN-95 PO (14:40)
--- NOTE | 2021-08-31 14:44 | PHYS DOC ---
Past History Past Medical History: Anxiety, Asthma, Bipolar, Other Additional Past Medical Histor: trigeminal neuralgia, tmj, PTSD Past Surgical History: , Tubal ligation, Other Additional Past Surgical Histo: ORAL SURGERY(TOOTH EXTRACTION) Smoking: Cigarettes Alcohol Use: None Drug Use: None Adult General Chief Complaint Chief Complaint: FACE PROBLEM HPI HPI Patient is a 30-year-old female presenting for dental issues. This is an acute on chronic issue. She is being covered by her primary care physician only, has not seen ears nose throat or dentist for chronic dental and salivary gland issues. She presents with enlarged right salivary gland and subsequent dental infection. Admits she was seen by her primary care physician early last week and completed a 5-day course of clindamycin. Reports she typically requires longer courses between 7 and 10 days to clear her infection. In addition, she ran out of her pain medication and is here for pain control. She is otherwise been afebrile with no other major changes in health or baseline condition Review of Systems Review of Systems Fourteen body systems of review of systems have been reviewed. See HPI for pertinent positives and negative responses, other nash all other systems are negative, non-pertinent or non-contributory Allergies Allergies Allergies Coded Allergies Type Severity Reaction Last Updated Verified dextromethorphan Allergy Severe 03/23/21 Yes prednisone Allergy Severe 03/23/21 Yes Penicillins Allergy Intermediate 03/23/21 Yes amoxicillin Allergy Intermediate 03/23/21 Yes codeine Allergy Intermediate 03/23/21 Yes morphine Allergy Intermediate 03/23/21 Yes naproxen Allergy Intermediate 01/02/21 Yes prednisolone Allergy Intermediate 01/02/21 Yes sulfamethoxazole Allergy Intermediate 01/02/21 Yes tramadol Allergy Intermediate 01/02/21 Yes trimethoprim Allergy Intermediate 01/02/21 Yes iodine Allergy Mild Hives 02/18/21 Yes ketorolac Adverse Reaction Intermediate 01/18/21 Yes Physical Exam Physical Exam Constitutional: Well developed, well nourished, no acute distress, non-toxic appearance. GCS 15 HENT: Normocephalic, atraumatic, bilateral external ears normal, oropharynx moist, enlarged right-sided salivary gland with cervical lymphadenopathy of right submandibular area. Tooth #31 absent with purulent exudate present and adjacent gingival erythema and irritation, nose normal. Eyes: PERRLA, EOMI, conjunctiva normal, no discharge. Neck: Normal range of motion, no tenderness, supple, no stridor. Cardiovascular: Heart rate regular per monitor Lungs & Thorax: No respiratory distress or accessory muscle use, bilateral chest rise Abdomen: Abdomen soft, non-tender, bowel sounds present in all quadrants, no guarding or rebound, nonacute abdomen. Skin: Warm, dry, no erythema, no rash. Back: No tenderness, no CVA tenderness. Extremities: No tenderness, no cyanosis, no clubbing, ROM intact, no edema. Neurologic: Alert and oriented X 3, grossly normal motor & sensory function, no focal deficits noted. Psychologic: Affect normal, judgement normal, mood normal. Current Patient Data Vital Signs Vital Signs Date Time Temp Pulse Resp B/P (MAP) Pulse Ox O2 Delivery O2 Flow Rate FiO2 08/31/21 14:13 98.3 119 16 147/100 (116) 96 Room Air Vital Signs Date Time Temp Pulse Resp B/P (MAP) Pulse Ox O2 Delivery O2 Flow Rate FiO2 08/31/21 14:13 98.3 119 16 147/100 (116) 96 Room Air EKG EKG [] Radiology/Procedures Radiology/Procedures [] Heart Score C/O Chest Pain: No Risk Factors: Risk Factors: DM, Current or recent (<one month) smoker, HTN, HLP, family history of CAD, obesity. Risk Scores: Risk Factors: DM, Current or recent (<one month) smoker, HTN, HLP, family history of CAD, obesity. Course & Med Decision Making Course & Med Decision Making ABCs unremarkable HPI and physical examination concerning for right-sided salivary gland and right lower posterior molar infection. I have seen patient in the past and she has exhibited pain seeking behavior in the past; however, she has legitimate active infection today Joint decision made start clindamycin, a longer dose of 7 days given her allergies. She typically takes this medication and is aware of side effects such as but not limited to C. difficile infection. Short-term pain control advised I disclosed that definitive management of this chronic condition will not occur if she does not seek outpatient ENT and/or dental follow-up for which she was advised to do numerous times before. Ultimately, joint decision to discharge home with clindamycin and short-term narcotic pain medication for pain control with close outpatient follow-up recommended Michael Disclaimer Michael Disclaimer This electronic medical record was generated, in whole or in part, using a voice recognition dictation system. Departure Departure: Impression: Primary Impression: Dental infection Disposition: HOME / SELF CARE / HOMELESS Condition: STABLE Referrals: NON,STAFF (PCP) Additional Instructions: You were seen for dental issues. These are chronic for you in nature but you are suffering from an acute infection today involving your right salivary gland and tooth #32. Joint decision was made to start clindamycin for which you have taken in the past, these take this as scheduled to completion. In addition, short-term narcotic pain medication was prescribed which you should use as needed for severe pain only. You need to contact your primary care physician to review need for close outpatient follow-up.you really need to stressed need for ENT and/or dentist referrals so you can be seen for definitive management of your chronic condition. You should return to the ED if you develop worsening pain, fever > 101, swelling, redness, or any other new or concerning symptoms. Scripts Hydrocodone Bit/Acetaminophen (HYDROCODONE-APAP 5-325 ) 1 Each Tablet 1 TAB PO PRN Q6HRS PRN for PAIN, #10 TAB 0 Refills Prov: KIRSTEN GRANGER DO 08/31/21 Clindamycin Hcl (CLINDAMYCIN HCL) 300 Mg Capsule 2 CAP PO BID for dental infection, #14 CAP Prov: KIRSTEN GRANGER DO 08/31/21 KIRSTEN GRANGER DO Aug 31, 2021 14:44
[2021-08-31] MEDS ORDERED: CLINDAMYCIN HCL 150 MG CAPSULE PO ONE (14:45)
== END 2021-08-31 15:23 | disposition home or self-care (01) ==
LOC: ER 14:09
DX: K04.7 Periapical abscess without sinus (principal); R59.0 Localized enlarged lymph nodes; J45.909 Unspecified asthma, uncomplicated; F41.9 Anxiety disorder, unspecified; F31.9 Bipolar disorder, unspecified; F17.210 Nicotine dependence, cigarettes, uncomplicated; F43.10 Post-traumatic stress disorder, unspecified; Z88.8 Allergy status to other drugs, medicaments and biological substances; Z88.0 Allergy status to penicillin; Z88.1 Allergy status to other antibiotic agents; Z88.5 Allergy status to narcotic agent
CPT/HCPCS: 99283

== ENCOUNTER 2021-09-02 22:03 | Emergency (ER) | payer SELFPAY ==
[~2021-09-02 22:03] MED LIST changes: +HYDR-2155 PO
== END 2021-09-03 00:01 | disposition left against medical advice (07) ==
LOC: ER 22:03
DX: K11.20 Sialoadenitis, unspecified (principal); Z53.21 Procedure and treatment not carried out due to patient leaving prior to being seen by health care provider

== ENCOUNTER 2021-10-11 22:15 | Emergency (ER) | payer SELFPAY ==
[~2021-10-11] VITALS: Ht 160 cm; Wt 121.3 kg
[2021-10-11] MEDS ORDERED: CLIN-95 PO (22:32)
--- NOTE | 2021-10-11 22:38 | PHYS DOC ---
Past History Past Medical History: Anxiety, Asthma, Bipolar, Other Additional Past Medical Histor: trigeminal neuralgia, tmj, PTSD Past Surgical History: , Tubal ligation, Other Additional Past Surgical Histo: ORAL SURGERY(TOOTH EXTRACTION) Smoking: Cigarettes Alcohol Use: None Drug Use: None Adult General Chief Complaint Chief Complaint: DENTAL PROBLEM HPI HPI Patient is a 30-year-old female with a past medical history significant for anxiety, depression, bipolar and chronic pain who presents with dental pain. States that she has a wisdom tooth coming in and thinks it may be infected. States she hadn't talked to a dentist yet. Denies any recent traumas, illnesses, fevers, neck pain, pain or trouble swallowing, chest pain, shortness of breath, nausea, vomiting. Review of Systems Review of Systems Review of systems otherwise unremarkable except noted in HPI Allergies Allergies Allergies Coded Allergies Type Severity Reaction Last Updated Verified dextromethorphan Allergy Severe 03/23/21 Yes prednisone Allergy Severe 03/23/21 Yes Penicillins Allergy Intermediate 03/23/21 Yes amoxicillin Allergy Intermediate 03/23/21 Yes codeine Allergy Intermediate 03/23/21 Yes morphine Allergy Intermediate 03/23/21 Yes naproxen Allergy Intermediate 01/02/21 Yes prednisolone Allergy Intermediate 01/02/21 Yes sulfamethoxazole Allergy Intermediate 01/02/21 Yes tramadol Allergy Intermediate 01/02/21 Yes trimethoprim Allergy Intermediate 01/02/21 Yes iodine Allergy Mild Hives 02/18/21 Yes ketorolac Adverse Reaction Intermediate 01/18/21 Yes Physical Exam Physical Exam Constitutional: Well developed, well nourished, no acute distress, non-toxic appearance. [] HENT: Normocephalic, atraumatic, bilateral external ears normal, oropharynx moist, poor dentition generally, multiple dental caries, wisdom tooth impaction, no oral exudates, nose normal. [] Eyes: conjunctiva normal, no discharge. [] Neck: Normal range of motion, no tenderness, supple, no stridor. [] Cardiovascular:Heart rate regular rhythm, no murmur [] Neurologic: Alert and oriented X 3, no focal deficits noted. [] Psychologic: Affect normal, judgement normal, mood normal. [] EKG EKG [] Radiology/Procedures Radiology/Procedures [] Heart Score C/O Chest Pain: No Risk Factors: Risk Factors: DM, Current or recent (<one month) smoker, HTN, HLP, family history of CAD, obesity. Risk Scores: Risk Factors: DM, Current or recent (<one month) smoker, HTN, HLP, family history of CAD, obesity. Course & Med Decision Making Course & Med Decision Making Patient is a 30-year-old female who presents with dental pain Vital signs not concerning. Physical exam noted above. Declined dental block. Started on clindamycin. Given pain medicine. Advised on symptom treatment at home. Given contact information for local emergency dentist. Advised to follow-up with dentist in the morning. Gave return precautions to the ED. Patient grateful, verbalized understanding agree with plan of garcía ignacio. [] Dragon Disclaimer Dragon Disclaimer This electronic medical record was generated, in whole or in part, using a voice recognition dictation system. Departure Departure: Impression: Primary Impression: Pain, dental Disposition: HOME / SELF CARE / HOMELESS Condition: GOOD Referrals: NON,STAFF (PCP) Patient Instructions: Dental Pain Additional Instructions: Thank you for coming into the emergency department tonight and allowing us to take care of you. Please read the attached information carefully to go over things we discussed. Please take your antibiotics as prescribed and until gone. Please call your dentist first thing in the morning and if you don't have a dentist you call the emergency tooth pain center at [phone] and should be able to see you within a day or 2. Please begin a ibuprofen, Tylenol and Orajel regimen as we discussed. Scripts Clindamycin Hcl (CLINDAMYCIN HCL) 300 Mg Capsule 1 CAP PO TID for dental pain for 7 Days, #21 CAP Prov: OSCAR ROCHA MD 10/11/21 OSCAR ROCHA MD Oct 11, 2021 22:38
[2021-10-11] MEDS ORDERED: CLINDAMYCIN HCL 150 MG CAPSULE PO ONE (22:45)
[2021-10-11] MEDS ORDERED: oxyCODONE/APAP 5/325 1 TAB TABLET PO ONE (22:45)
[2021-10-11 23:00] VITALS: BP 148/97
== END 2021-10-11 23:00 | disposition home or self-care (01) ==
LOC: ER 22:15
DX: K02.9 Dental caries, unspecified (principal); F41.9 Anxiety disorder, unspecified; F31.9 Bipolar disorder, unspecified; G89.29 Other chronic pain; J45.909 Unspecified asthma, uncomplicated; F17.210 Nicotine dependence, cigarettes, uncomplicated; Z88.8 Allergy status to other drugs, medicaments and biological substances; Z88.0 Allergy status to penicillin; Z88.5 Allergy status to narcotic agent; Z88.2 Allergy status to sulfonamides; Z88.1 Allergy status to other antibiotic agents
CPT/HCPCS: 99283

== ENCOUNTER 2021-11-20 12:09 | Emergency (ER) | payer SELFPAY ==
[~2021-11-20] VITALS: Ht 160 cm; Wt 121.3 kg
[2021-11-20 12:30] VITALS: BP 150/119
[2021-11-20] MEDS ORDERED: ONDANSETRON PF 4 MG/2 ML VIAL. IVP ONE (12:45)
[2021-11-20] MEDS ORDERED: IV NORMAL SALINE 1,000ML 1,000 ML IV ONE (12:45)
--- NOTE | 2021-11-20 12:47 | PHYS DOC ---
Past History Past Medical History: Anxiety, Asthma, Bipolar, Other Additional Past Medical Histor: trigeminal neuralgia, tmj, PTSD Past Surgical History: , Tubal ligation, Other Additional Past Surgical Histo: ORAL SURGERY(TOOTH EXTRACTION) Smoking: Cigarettes Alcohol Use: None Drug Use: None General Adult EDM: Chief Complaint: PAIN CONTROL HPI: HPI: 30-year-old female presents with right lower quadrant abdominal pain. Patient has had a history of right-sided ovarian cysts in the past. They have come and gone couple times. She has had pain for about 3 days since starting her menstrual cycle but got much worse last night and she continues to have moderate sharp pain. She has had sections but still has her appendix and gallbladder. She denies fever or chills. She denies chance of because she has had a tubal ligation. Review of Systems: Review of Systems: Constitutional: Denies fever or chills Eyes: Denies change in visual acuity HENT: Denies nasal congestion or sore throat Respiratory: Denies cough or shortness of breath Cardiovascular: Denies chest pain or edema GI: RLQ abdominal pain. Denies nausea, vomiting, bloody stools or diarrhea : Denies dysuria Musculoskeletal: Denies back pain or joint pain Integument: Denies rash Neurologic: Denies headache, focal weakness or sensory changes Endocrine: Denies polyuria or polydipsia Lymphatic: Denies swollen glands Psychiatric: Denies depression or anxiety Allergies: Allergies: Allergies Coded Allergies Type Severity Reaction Last Updated Verified dextromethorphan Allergy Severe 03/23/21 Yes prednisone Allergy Severe 03/23/21 Yes Penicillins Allergy Intermediate 03/23/21 Yes amoxicillin Allergy Intermediate 03/23/21 Yes codeine Allergy Intermediate 03/23/21 Yes morphine Allergy Intermediate 03/23/21 Yes naproxen Allergy Intermediate 01/02/21 Yes prednisolone Allergy Intermediate 01/02/21 Yes sulfamethoxazole Allergy Intermediate 01/02/21 Yes tramadol Allergy Intermediate 01/02/21 Yes trimethoprim Allergy Intermediate 01/02/21 Yes iodine Allergy Mild Hives 02/18/21 Yes ketorolac Adverse Reaction Intermediate 01/18/21 Yes Physical Exam: PE: Constitutional: Well developed, well nourished, morbidly obese, no acute distress, non-toxic appearance. [] HENT: Normocephalic, atraumatic, bilateral external ears normal, oropharynx moist, no oral exudates, nose normal. [] Eyes: PERRLA, EOMI, conjunctiva normal, no discharge. [] Neck: Normal range of motion, no tenderness, supple, no stridor. [] Cardiovascular:Heart rate regular rhythm, no murmur [] Lungs & Thorax: Bilateral breath sounds clear to auscultation [] Abdomen: Bowel sounds normal, soft, right lower quadrant tenderness, no masses, no pulsatile masses. [] Skin: Warm, dry, no erythema, no rash. [] Back: No tenderness, no CVA tenderness. [] Extremities: No tenderness, no cyanosis, no clubbing, ROM intact, no edema. [] Neurologic: Alert and oriented X 3, normal motor function, normal sensory function, no focal deficits noted. [] Psychologic: Affect normal, judgement normal, mood normal. [] Current Patient Data: Vital Signs: Vital Signs Date Time Temp Pulse Resp B/P (MAP) Pulse Ox O2 Delivery O2 Flow Rate FiO2 11/20/21 12:30 98.1 118 18 150/119 (129) 99 EKG: EKG: [] Radiology/Procedures: Radiology/Procedures: [] Impressions: CT abdomen pelvis without contrast dated 11/20/2021. COMPARISON: 08/12/2021 INDICATION: Right lower quadrant pain. TECHNIQUE: Continues axial imaging the abdomen pelvis performed without the administration of IV or oral contrast. One or more of the following individualized dose reduction techniques were utilized for this examination: 1. Automated exposure control 2. Adjustment of the mA and/or kV according to patient size 3. Use of iterative reconstruction technique. FINDINGS: Limited images of the lung bases are clear. Heart size within normal limits. No pleural or pericardial effusion. Solid abdominal viscera not well evaluated in the absence of contrast material. No apparent attenuation abnormality of the liver or spleen. Gallbladder, pancreas, adrenal glands and kidneys are unremarkable. No stone or hydronephrosis. There is fatty replacement of the submucosa involving the right colon and transverse colon, unchanged from prior exam, likely related to prior episodes of colitis. There are no acute inflammatory changes at this time. The small bowel is normal in caliber. Appendix is normal in caliber. No ascites or lymphadenopathy. Abdominal aorta normal in caliber. There is a duplicated IVC. Small umbilical hernia containing only fat. Images of pelvis show nondistended urinary bladder. Uterus and adnexa are unremarkable. No free fluid or pelvic lymphadenopathy. There are borderline enlarged bilateral external iliac and inguinal lymph nodes that are stable from prior study. Previously described bilateral ovarian cysts have resolved. Bone window show no acute finding. IMPRESSION: 1. No acute abnormality of abdomen or pelvis. Normal appendix. 2. There is fatty replacement of the colonic submucosa involving the right colon and transverse colon, unchanged from prior study. This is likely related to prior episodes of colitis. No acute inflammatory changes at this time. 3. Borderline enlarged bilateral external iliac chain and inguinal lymph nodes, nonspecific but unchanged from prior study. 4. Interval resolution of ovarian cysts. Electronically signed by: Bridgette Brambila MD (11/20/2021 1:54 PM) [id number] DICTATED AND SIGNED BY: BRIDGETTE BRAMBILA MD DATE: 11/20/21 1350 CC: LUCAS MOSS DO; NON,STAFF ~MTH0 0 Heart Score: C/O Chest Pain: N/A Risk Factors: Risk Factors: DM, Current or recent (<one month) smoker, HTN, HLP, family history of CAD, obesity. Risk Scores: Score 0 - 3: 2.5% MACE over next 6 weeks - Discharge Home Score 4 - 6: 20.3% MACE over next 6 weeks - Admit for Clinical Observation Score 7 - 10: 72.7% MACE over next 6 weeks - Early Invasive Strategies Course & Med Decision Making: Course & Med Decision Making Pertinent Labs and Imaging studies reviewed. (See chart for details) The patient's labs are unremarkable. The patient's CT of the abdomen pelvis is negative for acute findings. Patient was uncooperative for ultrasound refused transvaginal. She does not appear to have ovarian torsion. I am not sure why she is having such discomfort. I will discharge her with a short course of [place] 5/325. She is stable for discharge at this time. [] Dragon Disclaimer: Dragon Disclaimer: This electronic medical record was generated, in whole or in part, using a voice recognition dictation system. Departure Departure: Impression: Primary Impression: Right lower quadrant abdominal pain Disposition: HOME / SELF CARE / HOMELESS Condition: STABLE Referrals: NON,STAFF (PCP) Patient Instructions: Abdominal Pain, [id number] Scripts Hydrocodone/Acetaminophen (Hydrocodone-Acetamin 5-325 mg) 1 Each Tablet 1 EACH PO Q4-6HRS PRN for PAIN, #10 TAB Prov: LUCAS MOSS DO 11/20/21 LUCAS MOSS DO Nov 20, 2021 12:47
[2021-11-20 13:35] LABS: CALCIUM 8.8 mg/dL (8.5-10.1); CREATININE 0.7 mg/dL (0.6-1.0); GFR 99.6
[2021-11-20 13:40] LABS: ALBUMIN 3.2 g/dL (3.4-5.0); ALBUMIN/GLOBULIN RATIO 0.7 (1.0-1.7); TOTAL BILIRUBIN 0.2 mg/dL (0.2-1.0); TOTAL PROTEIN 7.9 g/dL (6.4-8.2)
--- NOTE | 2021-11-20 13:56 | RAD ---
CT abdomen pelvis without contrast dated 11/20/2021. COMPARISON: 08/12/2021 INDICATION: Right lower quadrant pain. TECHNIQUE: Continues axial imaging the abdomen pelvis performed without the administration of IV or oral contras t. One or more of the following individualized dose reduction techniques were utilized for this examinat ion: 1. Automated exposure control 2. Adjustment of the mA and/or kV according to patient size 3. Use of iterative reconstruction technique. FINDINGS: Limited images of the lung bases are clear. Heart size within normal limits. No pleural or pericardia l effusion. Solid abdominal viscera not well evaluated in the absence of contrast material. No apparent attenuati on abnormality of the liver or spleen. Gallbladder, pancreas, adrenal glands and kidneys are unremark able. No stone or hydronephrosis. There is fatty replacement of the submucosa involving the right colon and transverse colon, unchanged from prior exam, likely related to prior episodes of colitis. There are no acute inflammatory change s at this time. The small bowel is normal in caliber. Appendix is normal in caliber. No ascites or ly mphadenopathy. Abdominal aorta normal in caliber. There is a duplicated IVC. Small umbilical hernia c ontaining only fat. Images of pelvis show nondistended urinary bladder. Uterus and adnexa are unremarkable. No free fluid or pelvic lymphadenopathy. There are borderline enlarged bilateral external iliac and inguinal lymph nodes that are stable from prior study. Previously described bilateral ovarian cysts have resolved. Bone window show no acute finding. IMPRESSION: 1. No acute abnormality of abdomen or pelvis. Normal appendix. 2. There is fatty replacement of the colonic submucosa involving the right colon and transverse colon , unchanged from prior study. This is likely related to prior episodes of colitis. No acute inflammat ory changes at this time. 3. Borderline enlarged bilateral external iliac chain and inguinal lymph nodes, nonspecific but uncha nged from prior study. 4. Interval resolution of ovarian cysts. Electronically signed by: Brandon Brambila MD (11/20/2021 1:54 PM) [id number]
[2021-11-20 14:15] LABS: BASO # 0.1 x10^3/uL (0.0-0.2); BASO % 1 % (0-3); EOS # 0.1 x10^3/uL (0.0-0.7); EOS % 1 % (0-3); HEMATOCRIT 41.5 % (36.0-47.0); HEMOGLOBIN 13.9 g/dL (12.0-15.5); LYMPH # 2.6 x10^3/uL (1.0-4.8); LYMPH % 24 % (24-48); MEAN CORPUSCULAR HEMOGLOBIN 29 pg (25-35); MEAN CORPUSCULAR HGB CONC 34 g/dL (31-37); MEAN CORPUSCULAR VOLUME 86 fL (79-100); MONO # 0.6 x10^3/uL (0.0-1.1); MONO % 5 % (0-9); NEUT # 7.4 x10^3uL (1.8-7.7); NEUT % 69 % (31-73); PLATELET COUNT 306 x10^3/uL (140-400); RED BLOOD COUNT 4.84 x10^6/uL (3.50-5.40); RED CELL DISTRIBUTION WIDTH 15.9 % (11.5-14.5); WHITE BLOOD COUNT 10.8 x10^3/uL (4.0-11.0)
[2021-11-20] MEDS ORDERED: HYDR-2759 PO (15:19)
== END 2021-11-20 15:36 | disposition home or self-care (01) ==
LOC: ER 12:09
DX: R10.31 Right lower quadrant pain (principal); J45.909 Unspecified asthma, uncomplicated; F41.9 Anxiety disorder, unspecified; F31.9 Bipolar disorder, unspecified; F17.210 Nicotine dependence, cigarettes, uncomplicated; Z98.890 Other specified postprocedural states; Z98.51 Tubal ligation status; Z88.0 Allergy status to penicillin; Z88.1 Allergy status to other antibiotic agents; Z88.5 Allergy status to narcotic agent; Z88.2 Allergy status to sulfonamides; Z88.8 Allergy status to other drugs, medicaments and biological substances
CPT/HCPCS: 36415; 74176; 80053; 85025; 96361; 96374; 96375; 99284; J2405; J3010; J7030

== ENCOUNTER 2022-01-15 18:39 | Emergency (ER) | payer MEDICAID ==
[~2022-01-15] VITALS: Ht 160 cm; Wt 121.3 kg
[~2022-01-15 18:39] MED LIST changes: +HYDR-2759 PO
[2022-01-15 19:20] VITALS: BP 134/81
[2022-01-15] MEDS ORDERED: oxyCODONE/APAP 5/325 1 TAB TABLET PO ONE (20:30)
--- NOTE | 2022-01-15 20:43 | PHYS DOC ---
Past History Past Medical History: Anxiety, Asthma, Bipolar, Other Additional Past Medical Histor: trigeminal neuralgia, tmj, PTSD Past Surgical History: , Tubal ligation, Other Additional Past Surgical Histo: ORAL SURGERY(TOOTH EXTRACTION) Smoking: Cigarettes Alcohol Use: None Drug Use: None General Adult EDM: Chief Complaint: FACE PAIN HPI: HPI: Patient is a 31-year-old female who presents with neuralgia pain. Patient states that she has an appointment on the with her PCP. Patient is requesting pain medication while in the ER until she can make a follow-up appointment sooner with her PCP. History of anxiety, asthma neuralgia. Review of Systems: Review of Systems: ROS At least 10 ROS systems have been reviewed and are negative except as documented in the HPI. General: Negative except as outlined in HPI above. Skin: Negative except as outlined in HPI above. HEENT: Negative except as outlined in HPI above. Neck: Negative except as outlined in HPI above. Respiratory: Negative except as outlined in HPI above.. Cardiovascular: Negative except as outlined in HPI above. Abdomen: Negative except as outlined in HPI above. : Negative except as outlined in HPI above. Back/MSK: Negative except as outlined in HPI above. Neuro: Negative except as outlined in HPI above. Psych: Negative except as outlined in HPI above. Current Medications: Current Meds: Current Medications Medications (Trade) Dose Ordered Sig/Sondra Start Time Stop Time Status Last Admin Dose Admin Oxycodone/ Acetaminophen (Percocet 5/325) 2 tab 1X ONCE 01/15/22 20:30 01/15/22 20:31 DC Allergies: Allergies: Allergies Coded Allergies Type Severity Reaction Last Updated Verified dextromethorphan Allergy Severe 03/23/21 Yes prednisone Allergy Severe 03/23/21 Yes Penicillins Allergy Intermediate 03/23/21 Yes amoxicillin Allergy Intermediate 03/23/21 Yes codeine Allergy Intermediate 03/23/21 Yes morphine Allergy Intermediate 03/23/21 Yes naproxen Allergy Intermediate 01/02/21 Yes prednisolone Allergy Intermediate 01/02/21 Yes sulfamethoxazole Allergy Intermediate 01/02/21 Yes tramadol Allergy Intermediate 01/02/21 Yes trimethoprim Allergy Intermediate 01/02/21 Yes iodine Allergy Mild Hives 02/18/21 Yes ketorolac Adverse Reaction Intermediate 01/18/21 Yes Physical Exam: PE: Constitutional: Well developed, well nourished, no acute distress, non-toxic appearance. [] HENT: Normocephalic, atraumatic, bilateral external ears normal, oropharynx moist, no oral exudates, nose normal. [] Eyes: PERRLA, EOMI, conjunctiva normal, no discharge. [] Neck: Normal range of motion, no tenderness, supple, no stridor. [] Cardiovascular:Heart rate regular rhythm, no murmur [] Lungs & Thorax: Bilateral breath sounds clear to auscultation [] Abdomen: Bowel sounds normal, soft, no tenderness, no masses, no pulsatile masses. [] Skin: Warm, dry, no erythema, no rash. [] Back: No tenderness, no CVA tenderness. [] Extremities: No tenderness, no cyanosis, no clubbing, ROM intact, no edema. [] Neurologic: Alert and oriented X 3, normal motor function, tenderness to face Psychologic: Affect normal, judgement normal, mood normal. [] Current Patient Data: Vital Signs: Vital Signs Date Time Temp Pulse Resp B/P (MAP) Pulse Ox O2 Delivery O2 Flow Rate FiO2 01/15/22 19:20 99.5 82 18 134/81 (98) 98 EKG: EKG: [] Radiology/Procedures: Radiology/Procedures: [] Heart Score: C/O Chest Pain: No Risk Factors: Risk Factors: DM, Current or recent (<one month) smoker, HTN, HLP, family history of CAD, obesity. Risk Scores: Score 0 - 3: 2.5% MACE over next 6 weeks - Discharge Home Score 4 - 6: 20.3% MACE over next 6 weeks - Admit for Clinical Observation Score 7 - 10: 72.7% MACE over next 6 weeks - Early Invasive Strategies Course & Med Decision Making: Course & Med Decision Making Pertinent Labs and Imaging studies reviewed. (See chart for details) [] 22-year-old male presents with chronic neuralgia facial pain. Patient is requesting pain medication until she can get into her PCP which is scheduled for the . Patient states that she is going to try and call and get in sooner tomorrow. Patient states that she also has an appoint with neurology coming up. Patient given 10 mg of Percocet. Advised patient that she will not be getting anything to take home and will need to follow-up with PCP. Patient states that she understands discharge instructions. Michael Disclaimer: Michael Disclaimer: This electronic medical record was generated, in whole or in part, using a voice recognition dictation system. Departure Departure: Impression: Primary Impression: Chronic facial pain Disposition: HOME / SELF CARE / HOMELESS Condition: STABLE Referrals: NON,STAFF (PCP) Patient Instructions: Chronic Pain Additional Instructions: You were seen in the emergency room for chronic facial pain. You said that you will be following up with your PCP and neurologist. You were given pain medication while in the ER. Please make sure you make a follow-up appointment. EMERGENCY DEPARTMENT GENERAL DISCHARGE INSTRUCTIONS Thank you for coming to [facility] (ED) today and trusting us with you care. We trust that you had a positivie experience in our Emergency Department. If you wish to speak to the department management, you may call the director at [phone]. YOUR FOLLOW UP INSTRUCTIONS ARE FOLLOWS: 1. Do you have a private Doctor? If you do not have a private doctor, please ask for a resource list of physicians or clinics that may be able to assist you with follow up care. 2. The Emergency Physician has interpreted your x-rays. The X-Ray specialist will also review them. If there is a change in the findings, you will be notified in 48 hours when at all possible. 3. A lab test or culture has been done, your results will be reviewed and you will be notified if you need a change in treatment. ADDITIONAL INSTRUCTIONS AND INFORMATION: 1. Your care today has been supervised by a physician who is specially trained in emergency care. Many problems require more than one evaluation for a complete diagnosis and treatment. We recommend that you schedule your follow up appointment as recommended to ensure complete treatment of you illness or injury. If you are unable to obtain follow up care and continue to have a problem, or if your condition worsens, we recommend that you return to the ED. 2. We are not able to safely determine your condition over the phone nor are we able to give sound medical advice over the phone. For these safety reasons, if you call for medical advice we will ask you to come to the ED for further evaluation. 3. If you have any questions regarding these discharge instructions please call the ED at [phone]. SAFETY INFORMATION: In the interest of safety, wellness, and injury prevention; we encourage you to wear your sealbelt, if you smoke; quite smoking, and we encourage family to use a protective helmet for bicycling and other sporting events that present an increased risk for head injury. IF YOUR SYMPTOMS WORSEN OR NEW SYMPTOMS DEVELOP, OR YOU HAVE CONCERNS ABOUT YOUR CONDITION; OR IF YOUR CONDITION WORSENS WHILE YOU ARE WAITING FOR YOUR FOLLOW UP APPOINTMENT; EITHER CONTACT YOUR PRIMARY CARE DOCTOR, THE PHYSICIAN WHOSE NAME AND NUMBER YOU WERE GIVEN, OR RETURN TO THE ED IMMEDIATELY. ALEX LEBRON APRN Jan 15, 2022 20:43
== END 2022-01-15 20:55 | disposition home or self-care (01) ==
LOC: ER 18:39
DX: G89.29 Other chronic pain (principal); R51.9 Headache, unspecified; M79.2 Neuralgia and neuritis, unspecified; F41.9 Anxiety disorder, unspecified; J45.909 Unspecified asthma, uncomplicated; F31.9 Bipolar disorder, unspecified; F17.210 Nicotine dependence, cigarettes, uncomplicated; Z88.8 Allergy status to other drugs, medicaments and biological substances; Z88.2 Allergy status to sulfonamides; Z88.5 Allergy status to narcotic agent; Z88.0 Allergy status to penicillin
CPT/HCPCS: 99283

== ENCOUNTER 2022-01-25 22:35 | Emergency (ER) | payer MEDICAID ==
[~2022-01-25] VITALS: Ht 160 cm; Wt 121.3 kg
--- NOTE | 2022-01-25 23:54 | PHYS DOC ---
Past History Past Medical History: Anxiety, Asthma, Bipolar, Other Additional Past Medical Histor: trigeminal neuralgia, tmj, PTSD Past Surgical History: , Tubal ligation, Other Additional Past Surgical Histo: ORAL SURGERY(TOOTH EXTRACTION) Smoking: Cigarettes Alcohol Use: None Drug Use: None General Adult EDM: Chief Complaint: FACE PROBLEM HPI: HPI: ".. I am having terrible face pain tonight.. I know I have Trigeminal Neurologia.... I have an apt. to follow up with [facility] on March 07 at 8 am.... I just that I hurt so bad tonight... " Patient is a 31 year old female who presents with with above history and complaints of chronic face pain. Patient has had previous ED visits for her chronic is currently following with as a primary. Patient also had previous diagnosis of TMJ. With oral surgery. Patient has history of anxiety, asthma, bipolar disorder, PTSD, and tobacco use. Patient has had times in the past exhibited possible narcotic seeking behaviors. Patient denies any recent trauma. No fever or chills. No history immunosuppression. No history of recent drug changes. No recent travel. Review of Systems: Review of Systems: Constitutional: Denies fever or chills Eyes: Denies change in visual acuity HENT: Complains of chronic facial pain Respiratory: Denies cough or shortness of breath Cardiovascular: Denies chest pain or edema GI: Denies abdominal pain, nausea, vomiting, bloody stools or diarrhea : Denies dysuria Musculoskeletal: Denies back pain or joint pain Integument: Denies rash Neurologic: Denies headache, focal weakness or sensory changes Endocrine: Denies polyuria or polydipsia Lymphatic: Denies swollen glands Psychiatric: Denies depression or anxiety Family History: Family History: Noncontributory to presentation Current Medications: Current Meds: See nursing for home meds Allergies: Allergies: Allergies Coded Allergies Type Severity Reaction Last Updated Verified dextromethorphan Allergy Severe 03/23/21 Yes prednisone Allergy Severe 03/23/21 Yes Penicillins Allergy Intermediate 03/23/21 Yes amoxicillin Allergy Intermediate 03/23/21 Yes codeine Allergy Intermediate 03/23/21 Yes morphine Allergy Intermediate 03/23/21 Yes naproxen Allergy Intermediate 01/02/21 Yes prednisolone Allergy Intermediate 01/02/21 Yes sulfamethoxazole Allergy Intermediate 01/02/21 Yes tramadol Allergy Intermediate 01/02/21 Yes trimethoprim Allergy Intermediate 01/02/21 Yes iodine Allergy Mild Hives 02/18/21 Yes ketorolac Adverse Reaction Intermediate 01/18/21 Yes Physical Exam: PE: Constitutional: Moderate acute distress, non-toxic appearance. [] HENT: Normocephalic, atraumatic, bilateral external ears normal, oropharynx moist, no oral exudates, nose normal. Right trigeminal area is tender to palpation at angle of mandible and face. No specific arterial tenderness temporal area . Eyes: PERRLA, EOMI, conjunctiva normal, no discharge. [] Neck: Normal range of motion, no tenderness, supple, no stridor. [] Cardiovascular:Heart rate regular rhythm, no murmur [] Lungs & Thorax: Bilateral breath sounds equal apex with scattered wheezes auscultation [] Abdomen: Bowel sounds normal, soft, no tenderness, no masses, no pulsatile masses. Obese. Old surgery scars. Skin: Warm, dry, no erythema, no rash. [] Back: No tenderness, no CVA tenderness. [] Extremities: No tenderness, no cyanosis, no clubbing, ROM intact, no edema. [] Neurologic: Alert and oriented X 3, normal motor function, normal sensory function, no focal deficits noted. DTRs are +2 brachial. Patient is amatory without problems. No drift. [id number]. Psychologic: Affect anxious, judgement normal, mood flat-depressed EKG: EKG: [] Radiology/Procedures: Radiology/Procedures: [] Heart Score: C/O Chest Pain: N/A Risk Factors: Risk Factors: DM, Current or recent (<one month) smoker, HTN, HLP, family history of CAD, obesity. Risk Scores: Score 0 - 3: 2.5% MACE over next 6 weeks - Discharge Home Score 4 - 6: 20.3% MACE over next 6 weeks - Admit for Clinical Observation Score 7 - 10: 72.7% MACE over next 6 weeks - Early Invasive Strategies Course & Med Decision Making: Course & Med Decision Making Pertinent Labs and Imaging studies reviewed. (See chart for details) Patient advised further chronic pain meds must be filled by her primary care physician. Encourage patient keep her follow-up appointment on March 07 at . Advised that this is a chronic pain issue and must seek specialist care either ENT or neurology. May be amenable to treatment with Rhizolysis, Stereotactic radiosurgery, Micovascular Decompression of trigeminal nerve. Patient advised she did not want to try the use of lidocaine patch tonight. Patient also advised could try oral meds such as Neurontin, Lamictal, Topamax, Depakote, baclofen, or other meds. Patient to discuss this with her primary care. Impression: 1. Right facial pain-suspect trigeminal neuralgia 2. Acute on Chronic Pain syndrome [] Michael Disclaimer: Michael Disclaimer: This electronic medical record was generated, in whole or in part, using a voice recognition dictation system. Departure Departure: Referrals: MAME SPENCER APRN (PCP) Michael Disclaimer This chart was dictated in whole or in part using Voice Recognition software in a busy, high-work load, and often noisy Emergency Department environment. It may contain unintended and wholly unrecognized errors or omissions. DUANE NICOLE MD Jan 25, 2022 23:53
[2022-01-26] MEDS ORDERED: oxyCODONE/APAP 5/325 1 TAB TABLET PO ONE (00:15)
[2022-01-26] MEDS ORDERED: LIDOCAINE (700MG/PATCH) PATCH. TD SCH (00:30)
[2022-01-26 00:57] VITALS: BP 141/93
[2022-01-26] MEDS ORDERED: PATCH REMOVAL. MC SCH (21:00)
== END 2022-01-26 01:00 | disposition home or self-care (01) ==
LOC: ER 22:35
DX: R51.9 Headache, unspecified (principal); G89.4 Chronic pain syndrome; F41.9 Anxiety disorder, unspecified; J45.909 Unspecified asthma, uncomplicated; F31.9 Bipolar disorder, unspecified; F17.210 Nicotine dependence, cigarettes, uncomplicated; Z88.0 Allergy status to penicillin; Z88.1 Allergy status to other antibiotic agents; Z88.2 Allergy status to sulfonamides; Z88.8 Allergy status to other drugs, medicaments and biological substances
CPT/HCPCS: 99283